=== PATIENT | female | born 1975 | race Caucasian/White ===

== ENCOUNTER 2018-02-20 21:18 | Emergency (ER) | payer MEDICARE, SELFPAY ==
[2018-02-20 21:46] VITALS: BP 105/78; PULSE 98; RESP 17; TEMP 36.2; O2SAT 98
--- NOTE | 2018-02-20 22:49 | ED.BACK ---
HPI - Back Pain/Injury General Chief Complaint: Back Pain/Injury Stated Complaint: BACK PAIN Time Seen by Provider: 02/20/18 22:06 Source: patient Mode of arrival: ambulatory Limitations: no limitations History of Present Illness HPI Narrative: 43-year-old female here for evaluation of left-sided back pain. She states that her symptoms started on Monday. No known trauma. She has seen her neurologist who she sees for Arnold-Chiari malformation who started her on a Medrol Dosepak which she finished yesterday and also scheduled her for an MRI of her lower back for Monday. Patient has never had lower back pain before. No bowel or bladder symptoms. No radiation down her legs. Has tried multiple doses of ketorolac which has not improved any of her symptoms. Related Data Home Medications Medication Instructions Recorded Confirmed duloxetine 20 mg PO QDAY #0 cap 10/19/15 Previous Rx's Medication Instructions Recorded pramipexole [Mirapex] 0.25 mg PO BID #60 tab 09/29/15 levothyroxine [Synthroid] 25 mcg PO QAM #30 tab 10/16/15 prednisone 50 mg PO DAILY #7 tab 02/21/18 Allergies Allergy/AdvReac Type Severity Reaction Status Date / Time No Known Allergies Allergy Uncoded 06/14/17 12:55 Review of Systems Constitutional Denies fever(s), Reports headache(s) and Denies weakness ENT Ears, Nose, Mouth, and Throat: Denies vertigo, Denies dizziness and Reports headache(s) Cardiovascular Denies chest pain, Reports palpitations and Denies dyspnea Respiratory Denies dyspnea Gastrointestinal Gastrointestinal: Denies abdominal pain Genitourinary Denies flank pain, Denies urinary incontinence and Denies urinary hesitancy Musculoskeletal Denies numbness Integumentary/Breasts Denies lesions and Denies rash Neurologic Denies vertigo, Denies dizziness, Reports headache(s), Denies numbness, Denies radicular pain, Denies paresthesias and Denies weakness Endocrine Reports palpitations Hematologic/Lymphatic Comments: Not on anticoagulation PFSH Medical History Arnold-Chiari malformation (Acute) Surgical History History of spinal fusion Status post delivery Status post laminectomy Family History Grandfather Cancer Grandmother Cancer Mother Age: 69 Mental health problem Grandfather Cancer Grandmother Cancer Social History Smoking Status: Unknown if ever smoked Exam Initial Vital Signs Initial Vital Signs: Vital Signs Temperature 97.1 F L 02/20/18 21:46 Pulse Rate 98 H 02/20/18 21:46 Respiratory Rate 17 02/20/18 21:46 Blood Pressure 105/78 02/20/18 21:46 Pulse Oximetry 98 12 21:46 Const General: cooperative, healthy appearing, well developed and well groomed Orientation: alert, awake and oriented x3 HENMT Head: normal to inspection and normocephalic Resp Effort & Inspection: normal respiratory effort Auscultation: clear to auscultation bilaterally Cardio Rate: regular rate Rhythm: regular rhythm Back/Spine/Pelvis Other: Tenderness to palpation left lower lumbar region paraspinal. Skin Lesions: no lesions Neuro General: alert, awake and oriented x3 Cognition: normal cognition Sensory Exam: no sensory deficits noted Extrem General: normal to inspection, capillary refill normal and No edema Psych Appearance: grossly normal and well kempt Course Orders Ordered: ED Orders 02/20/18 22:49 EKG-12 Lead Stat Discontinued Medications Diazepam (Valium) 5 mg PO NOW ONE Stop: 02/20/18 22:50 Last Admin: 02/20/18 23:00 Dose: 5 mg Hydromorphone HCl (Dilaudid) 1 mg IV NOW ONE Stop: 02/20/18 23:42 Last Admin: 02/20/18 23:51 Dose: 1 mg Prednisone (Deltasone) 40 mg PO NOW ONE Stop: 02/20/18 22:50 Last Admin: 02/20/18 22:59 Dose: 40 mg Vital Signs - 8 hr 02/20/18 21:46 02/21/18 00:50 Temperature 97.1 F L Pulse Rate 98 H 76 Respiratory Rate 17 17 Blood Pressure 105/78 109/60 Pulse Oximetry 98 99 MDM - Back Pain/Injury ECG Data Attestation: I personally reviewed and interpreted this ECG as follows: Prior ECG tracings: not available for review Interpretation: Sinus rhythm Ventricular rate 80 for Normal axis Normal QRS Normal QTC No ST T wave changes MDM Narrative Medical decision making narrative: Patient without red flag symptoms concerning for cauda equina, fracture, spinal epidural abscess or hematoma. Has paraspinal pain. Patient was also complaining of palpitations. She states that she has ?autonomic dysregulation ?from the Arnold-Chiari malformation. Patient was placed on a monitor. The palpitations that she was feeling are consistent with the PVCs that we are seeing on the monitor. Patient was given muscle relaxers and pain medication here in the ER. She stated that she did not want any pain medication to go home with. Was sent home with a longer course of steroids. She is scheduled for an MRI on Monday. I do not feel that this needs to happen emergently here in the emergency department. Patient was given return precautions. She expressed understanding and agreement. Discharge Plan Departure Patient Disposition: Home Clinical Impression: Back pain, Frequent PVCs Discharge Date/Time: 02/21/18 00:50 Interventions: ED Discharge Assessment Last Done: 02/21/18 00:50 Instructions: Back Pain (Alternative Therapy), Premature Ventricular Beats, DI for Low Back Pain, Activity May Be Better then Rest for Low Back Pain Recovery Activity Restrictions/Additional Instructions: You were given your 1st dose of steroids here in the emergency department. Fill the prescription and start taking them tomorrow. Keep your scheduled MRI. Call your neurologist and your primary doctor for a follow-up. Talk with your primary doctor about the PVCs that were seen on the monitor today. Return to the emergency department for any new symptoms. Prescriptions: New prednisone 50 mg tablet 50 mg PO DAILY Qty: 7 RF: 0 No Action pramipexole [Mirapex] 0.25 MG tablet 0.25 mg PO BID Qty: 60 RF: 3 levothyroxine [Synthroid] 25 MCG tablet 25 mcg PO QAM Qty: 30 RF: 3 duloxetine 20 MG capsule,delayed release(DR/EC) 20 mg PO QDAY Qty: 0 RF: 0
[2018-02-20] MEDS: predniSONE 20 MG TABLET 40 MG PO (22:59)
[2018-02-20] MEDS: diazePAM 5 MG TABLET PO (23:00)
[2018-02-20] MEDS: HYDROMORPHONE 0.5 MG INJ 1 MG IV (23:51)
[2018-02-21 00:50] VITALS: BP 109/60; PULSE 76; RESP 17; O2SAT 99
== END 2018-02-21 00:50 | disposition home or self-care (01) ==
PROVIDERS: Emergency Provider Emergency Medicine; PCP Family Medicine
DX: I49.3 Ventricular premature depolarization (principal); M54.9 Dorsalgia, unspecified
CPT/HCPCS: 93005; 96374; 99282; 99284; J1170

== ENCOUNTER 2018-03-05 17:42 | Emergency (ER) | payer MEDICARE, SELFPAY ==
[2018-03-05 18:47] LABS: Bacteria Urine None Seen
[2018-03-05 18:49] LABS: Bilirubin Urine UA NEGATIVE (NEGATIVE); Glucose Urine UA NEGATIVE (Negative); Ketones Urine UA NEGATIVE (NEGATIVE); Leukocyte Esterase Urine UA NEGATIVE (NEGATIVE); Nitrite Urine UA NEGATIVE (Negative); Occult Blood Urine UA 3+ (Negative); Protein Urine UA TRACE (Negative); Specific Gravity Urine UA <=1.005 (1.000-1.035); Urobilinogen Urine UA 0.2 E.U./dL (0.2); pH Urine UA 5.5 (4.5-8.0)
[2018-03-05 18:50] VITALS: BP 150/78; PULSE 65; RESP 14; TEMP 36.4; O2SAT 100
[2018-03-05 18:51] LABS: Appearance Urine UA Slightly Cloudy; Color Urine UA OTHER
[2018-03-05 18:56] LABS: Amorphous Sediment Urine 1+; Culture Indicated Urine Cult Not Indicated; RBC Urine 5-10/HPF (0-5/HPF); Squamous Epithelial Cell Urine 5-10 /HPF; WBC Urine 0-1/HPF (0-5/HPF)
[2018-03-05 20:42] VITALS: BP 120/65; PULSE 63; RESP 16; O2SAT 100
[2018-03-05 20:45] VITALS: TEMP 36.9
--- NOTE | 2018-03-05 20:59 | PC.NURSE ---
Pt reports lower chronic back pain she had a recent MRI to evaluate. Today however she started to get blood in her urine at the end of the urine stream. Pt denies fever/chills, N/V/D, SOB and chest pain. Pt is laying quietly on stretcher and answering questions very quietly. Pt appears uncomfortable. pt is very tender on right flank when percussion.
--- NOTE | 2018-03-05 21:22 | ED.FEMALEGU ---
HPI - Female Genitourinary General Chief complaint: Urogenital-Female Stated complaint: blood in urine Time Seen by Provider: 03/05/18 20:42 Source: patient and family Mode of arrival: ambulatory Limitations: no limitations History of Present Illness HPI Narrative: Patient complains of low back pain and hematuria versus vaginal bleeding. The patient states that she has been noticing bleeding at the end of her urinary stream, although she has worn a pad and has been having some bleeding onto the pad for the last few days as well. Patient states she has a Mirena IUD, and usually just does some spotting, but this is heavier than she previously blood. Patient is also concerned because she has been eating and drinking normally but has been losing weight over the last month. The patient has a history of Arnold-Chiari malformation, as well as dysautonomia. She states she has been getting waves of nausea and also has been having urinary frequency. Patient denies fevers. She states she has been having some lower abdominal discomfort, but that mostly, her pain is in the back. Patient denies shortness of breath, chest pain, or cough. She states her pain is not made better or worse by anything, and is variable between 3/10 and 8/10. She states the pain and the friend is like a cramping sensation. She states the pain in her back is just a pain. She does note that she has had an ultrasound of her pelvic organs recently to evaluate her Mirena placement, and that the IUD was found to be in good placement. She has also had an MRI of her low back in the last the couple of months, and this did demonstrate herniated disc. Patient denies any weakness or loss of sensation in her lower extremities. She has not had any urinary or bowel retention. She states occasionally, she will have a little bit of urinary leakage, but this is not a new problem. Patient does see a neurologist for her Arnold-Chiari malformation. Related Data Home Medications Medication Instructions Recorded Confirmed baclofen 10 mg tablet 10 mg PO TID 03/05/18 03/05/18 ketorolac 60 mg/2 mL intramuscular 60 mg IM Q6-8H PRN ml 03/05/18 03/05/18 cartridge Previous Rx's Medication Instructions Recorded ketorolac 10 mg PO Q6H PRN #10 tab 03/05/18 ondansetron 4 mg PO Q6-8H PRN #10 tab 03/05/18 Allergies Allergy/AdvReac Type Severity Reaction Status Date / Time No Known Allergies Allergy Uncoded 06/14/17 12:55 Review of Systems Review of Systems All systems reviewed & are unremarkable except as noted in HPI and below Constitutional Denies chills, Denies fever(s), Denies lethargy and Denies weakness Eyes Denies change in vision, Denies eye discharge, Denies irritation and Denies loss of vision ENT Ears, Nose, Mouth, and Throat: Denies change in voice, Denies neck pain and Denies sore throat Cardiovascular Denies chest pain, Denies irregular heart rhythm, Denies lightheadedness, Denies palpitations, Denies dyspnea, Denies dyspnea on exertion and Denies orthopnea Respiratory Denies cough, Denies dyspnea, Denies dyspnea on exertion and Denies wheezing Gastrointestinal Gastrointestinal: Reports abdominal pain (Low), Denies change in bowel habits, Denies diarrhea, Denies nausea and Denies vomiting Genitourinary Reports hematuria, Denies flank pain, Reports urinary incontinence (Mild), Denies urinary urgency and Reports vaginal discharge (Bleeding, possible, light) Musculoskeletal Reports back pain and Denies neck pain Integumentary/Breasts Denies pruritus, Denies erythema, Denies rash and Denies wounds Neurologic Denies confusion, Denies loss of vision and Denies weakness Psychiatric Denies anxiety, Denies confusion, Denies depression, Denies homicidal ideation and Denies suicidal ideation Endocrine Denies palpitations Hematologic/Lymphatic Denies easy bruising Allergic/Immunologic Denies wheezing [facility] Medical History Arnold-Chiari malformation (Acute) Surgical History History of spinal fusion Status post delivery Status post laminectomy Family History Grandfather Cancer Grandmother Cancer Mother Age: 69 Mental health problem Grandfather Cancer Grandmother Cancer Social History Smoking Status: Current some day smoker Exam Initial Vital Signs Initial Vital Signs: Vital Signs Temperature 97.6 F 03/05/18 18:50 Pulse Rate 65 03/05/18 18:50 Respiratory Rate 14 03/05/18 18:50 Blood Pressure 150/78 H 03/05/18 18:50 Pulse Oximetry 100 03/05/18 18:50 Const General: cooperative and well developed Nutritional Appearance: well nourished Orientation: alert, awake, oriented x3 and not confused [facility] Head: normocephalic and atraumatic Ears: external ears normal and TM's normal bilaterally Nose: external nose normal and No nasal discharge Face and sinus: sinuses nontender, face symmetric, no sinus tenderness and No dry mucous membranes Mouth: oral mucosae normal and moist mucous membranes Teeth and gingiva: dentition normal Throat: tonsils normal and uvula midline Eyes General: appearance normal, both eyes and all related structures Eyelids: eyelids normal Conjunctivae: conjunctivae normal Sclera: sclerae normal Pupils: PERRL EOM: EOM intact bilaterally Neck Neck: normal visual inspection, trachea midline, No lymphadenopathy, No midline deformity and No JVD Lymphatic: No lymphedema Chest Chest: normal inspection of the chest Resp Effort & Inspection: normal respiratory effort, able to speak in complete sentences, no respiratory distress and no use of accessory muscles Auscultation: clear to auscultation bilaterally, no rales, no rhonchi and no wheezes Cardio Rate: regular rate Rhythm: regular rhythm Heart Sounds: no click, no gallops, no murmurs and no rubs Pulses: normal peripheral pulses GI Inspection: non-distended Palpation: soft, no hepatosplenomegaly, No guarding, No pulsatile mass and tender (Bilateral lower abdomen, moderate.) Auscultation: normal bowel sounds Back/Spine/Pelvis Back: No CVA tenderness Cervical Spine: cervical ROM normal and No pain with cervical ROM Thoracic/Lumbar Spine: thoracic and lumbar spine normal to inspection Other: Diffuse tenderness over bilateral paraspinal musculature over the entire length of the back. Skin General: no rashes or lesions noted, No jaundice and No petechiae Neuro General: alert, oriented x3, gait normal and no focal motor deficits Speech: speech normal Extrem General: full ROM, no clubbing, cyanosis or edema, no pedal edema and no calf tenderness Psych Appearance: well kempt Mental Status: mental status grossly normal Attitude: cooperative Thought Content: normal and suicidality Judgment: judgment good Course Course Narrative: Patient was worked up with a urinalysis, which showed blood but was otherwise negative. She was also worked up with CBC and CMP, urine test, and ultimately, CT scan of the abdomen and pelvis. She was given IV Toradol and Zofran for symptomatic relief, and did report feeling better afterward. Patient's workup was unremarkable. The I did discuss with the patient that we have not found an emergent condition today, and that she will need to follow up with her doctor regarding her ongoing symptoms. We have discussed the usual indications for return. Patient was agreeable to this plan. Orders Ordered: Discontinued Medications Ketorolac Tromethamine (Toradol) 30 mg IV NOW ONE Stop: 03/05/18 21:21 Last Admin: 03/05/18 21:57 Dose: 30 mg Ondansetron HCl (Zofran) 4 mg IV NOW ONE Stop: 03/05/18 21:21 Last Admin: 03/05/18 21:57 Dose: 4 mg Vital Signs - 8 hr 03/05/18 18:50 03/05/18 20:42 03/05/18 20:45 Temperature 97.6 F 98.5 F Pulse Rate 65 63 Respiratory Rate 14 16 Blood Pressure 150/78 H Blood Pressure [Left Arm] 120/65 Pulse Oximetry 100 100 MDM - Female Genitourinary Medical Records Attestation: I reviewed the patient's medical records. Lab Data Attestation: I reviewed the patient's lab results. Result diagrams: 03/05/18 21:50 03/05/18 21:50 Lab Results 03/05/18 03/05/18 03/05/18 Range/Units 18:30 18:30 21:50 WBC 7.8 (4.5-11.0) X10^3/uL RBC 4.47 (4.0-5.2) X10^6/uL Hgb 14.4 (12.0-16.0) g/dL Hct 41.5 (36-46) % MCV 92.8 (80-100) fL MCH 32.3 (26-34) PG MCHC 34.8 (30-36) % RDW 12.9 (11.6-14.8) % Plt Count 214 (150-400) X10^3/uL Neut % (Auto) 68.7 (50-75) % Lymph % (Auto) 22.6 L (25-40) % [place] % (Auto) 6.2 (3-14) % Eos % (Auto) 1.7 L (2-4) % Baso % (Auto) 0.8 (0-2) % Neut # (Auto) 5300 (0636-2650) /uL Sodium (137-145) mmol/L Potassium (3.4-5.1) mmol/L Chloride (98-107) mmol/L Carbon Dioxide (22-32) mmol/L BUN (7-17) mg/dL Creatinine (0.52-1.04) mg/dL Estimated GFR (>60) mL/min BUN/Creatinine Ratio (6-22) Glucose (70-100) mg/dL Calcium (8.4-10.2) mg/dL Total Bilirubin (0.2-1.3) mg/dL AST (14-36) IU/L ALT (9-52) IU/L Alkaline Phosphatase (38-126) U/L Total Protein (6.3-8.2) g/dL Albumin (3.5-5.0) g/dL Globulin (1.7-4.1) g/dL Albumin/Globulin Ratio (1.0-2.8) Urine Color Other Urine Appearance Slightly cloudy Urine pH 5.5 (4.5-8.0) Ur Specific Graham <=1.005 (1.000-1.035) Urine Protein Trace H (Negative) Urine Glucose (UA) Negative (Negative) g/dL Urine Ketones Negative (NEGATIVE) Urine Occult Blood 3+ H (Negative) Urine Nitrate Negative (Negative) Urine Bilirubin Negative (NEGATIVE) Urine Urobilinogen 0.2 (0.2) E.U./dL Ur Leukocyte Esterase Negative (NEGATIVE) Urine RBC 5-10/hpf H (0-5/HPF) Urine WBC 0-1/hpf (0-5/HPF) Ur Squamous Epith Cells 5-10 /hpf H Amorphous Sediment 1+ Urine Bacteria None seen (None) Ur Culture Indicated? Cult not indicated Micro UA Comment Not Reportable Urine Test Negative (Negative) 03/05/18 Range/Units 21:50 WBC (4.5-11.0) X10^3/uL RBC (4.0-5.2) X10^6/uL Hgb (12.0-16.0) g/dL Hct (36-46) % MCV (80-100) fL MCH (26-34) PG MCHC (30-36) % RDW (11.6-14.8) % Plt Count (150-400) X10^3/uL Neut % (Auto) (50-75) % Lymph % (Auto) (25-40) % [place] % (Auto) (3-14) % Eos % (Auto) (2-4) % Baso % (Auto) (0-2) % Neut # (Auto) (2426-6338) /uL Sodium 141 (137-145) mmol/L Potassium 3.9 (3.4-5.1) mmol/L Chloride 102 (98-107) mmol/L Carbon Dioxide 27 (22-32) mmol/L BUN 8 (7-17) mg/dL Creatinine 0.60 (0.52-1.04) mg/dL Estimated GFR > 60.0 (>60) mL/min BUN/Creatinine Ratio 13.3 (6-22) Glucose 90 (70-100) mg/dL Calcium 9.7 (8.4-10.2) mg/dL Total Bilirubin 1.0 (0.2-1.3) mg/dL AST 22 (14-36) IU/L ALT 15 (9-52) IU/L Alkaline Phosphatase 42 (38-126) U/L Total Protein 8.0 (6.3-8.2) g/dL Albumin 4.9 (3.5-5.0) g/dL Globulin 3.1 (1.7-4.1) g/dL Albumin/Globulin Ratio 1.6 (1.0-2.8) Urine Color Urine Appearance Urine pH (4.5-8.0) Ur Specific Graham (1.000-1.035) Urine Protein (Negative) Urine Glucose (UA) (Negative) g/dL Urine Ketones (NEGATIVE) Urine Occult Blood (Negative) Urine Nitrate (Negative) Urine Bilirubin (NEGATIVE) Urine Urobilinogen (0.2) E.U./dL Ur Leukocyte Esterase (NEGATIVE) Urine RBC (0-5/HPF) Urine WBC (0-5/HPF) Ur Squamous Epith Cells Amorphous Sediment Urine Bacteria (None) Ur Culture Indicated? Micro UA Comment Urine Test (Negative) Imaging Data CT scan - pelvis: Attestation: I personally reviewed and interpreted this imaging study as follows: Radiologist's impression: PROCEDURE: CT ABDOMEN PELVIS WO CON INDICATIONS: back pain/hematuria TECHNIQUE: Noncontrast 5 mm thick sections acquired from the diaphragms to the symphysis. 5 mm thick coronal and sagittal reformats were then performed. For radiation dose reduction, the following was used: automated exposure control, adjustment of mA and/or kV according to patient size. COMPARISON: None. FINDINGS: Image quality: Excellent. Lung bases: Lung bases are clear. Heart size is normal. Urinary system: Both kidneys are normal in size. No kidney stones. No hydronephrosis or perinephric fat stranding. Both ureters appear non-dilated throughout their expected courses. Bladder wall thickness is normal; no calcified bladder stones. Other solid organs: Liver is normal in size. Nonspecific subcentimeter hyperdensity seen in the inferior tip the liver, possibly cysts although too small to characterize. Gallbladder negative. Pancreas is normal in contours. Spleen is normal in size. No adrenal nodules. Peritoneum and bowel: Unenhanced bowel loops demonstrate normal wall thickness and caliber. No free fluid or air. Nodes and vessels: No retroperitoneal or mesenteric adenopathy by size criteria. Aorta and inferior vena cava are normal in caliber. Abdominal wall: No ventral hernias. Pelvis: Mild, possibly physiologic pelvic fluid. No inguinal hernias or adenopathy. Bones: No suspicious bony lesions. No vertebral body compression fractures. IMPRESSION: No urolithiasis or evidence of urinary obstruction. Moderate stool, raising possibility of constipation. Incidentally noted IUD. Mild pelvic free fluid which could be physiologic. Dictated by: Tu Edwards M.D. on 03/06/2018 at 9:36 Approved by: Tu Edwards M.D. on 03/06/2018 at 9:39 Discharge Plan Departure Patient Disposition: Home Clinical Impression: Back pain, Vaginal bleeding Discharge Date/Time: 03/06/18 00:25 Interventions: ED Discharge Assessment Last Done: 03/06/18 00:24 Instructions: DI for Low Back Pain, DI for Vaginal Bleeding Activity Restrictions/Additional Instructions: Your labs look good. Your blood cell levels are normal. Your CT scan does not show any concerning findings. Your IUD is where it should be. There is no evidence of a kidney stone. Urinalysis shows blood, but no infection. Most likely, the blood you were seen when you urinate is the blood that is coming from your vagina. You should follow-up with your bulk system operator to discuss whether the IUD continues to be the right choice for you. No evidence of a serious or emergent condition is found at this time. Prescriptions: New ketorolac 10 mg tablet 10 mg PO Q6H PRN (Reason: pain) Qty: 10 RF: 0 ondansetron 4 mg tablet,disintegrating 4 mg PO Q6-8H PRN (Reason: nausea and vomiting) Qty: 10 RF: 0 No Action baclofen 10 mg tablet 10 mg PO TID RF: 0 ketorolac 60 mg/2 mL cartridge 60 mg IM Q6-8H PRNRF: 0
[2018-03-05 21:36] VITALS: BP 108/67; PULSE 63; RESP 15; O2SAT 100
[2018-03-05 21:42] LABS: Pregnancy Test Urine Negative (Negative)
[2018-03-05] MEDS: ONDANSETRON 4 MG/2 ML INJ IV (21:57)
[2018-03-05] MEDS: KETOROLAC 60 MG/2 ML VIAL 30 MG IV (21:57)
[2018-03-05 22:00] LABS: Add Manual Diff / Slide Review NO; Basophils Percent Auto 0.8 % (0-2); Eosinophils Percent Auto 1.7 % (2-4); Hematocrit 41.5 % (36-46); Hemoglobin 14.4 g/dL (12.0-16.0); Lymphocytes Percent Auto 22.6 % (25-40); Mean Corpuscular HGB Conc 34.8 % (30-36); Mean Corpuscular Hemoglobin 32.3 PG (26-34); Mean Corpuscular Volume 92.8 fL (80-100); Monocytes Percent Auto 6.2 % (3-14); Neutrophils Absolute Auto 5300 /uL (1500-7000); Neutrophils Percent Auto 68.7 % (50-75); Platelet Count 214 X10^3/uL (150-400); Red Blood Cell Count 4.47 X10^6/uL (4.0-5.2); Red Cell Distribution Width 12.9 % (11.6-14.8); White Blood Cell Count 7.8 X10^3/uL (4.5-11.0)
[2018-03-05 22:15] LABS: Alanine Aminotransferase 15 IU/L (9-52); Albumin 4.9 g/dL (3.5-5.0); Albumin Globulin Ratio 1.6 (1.0-2.8); Alkaline Phosphatase 42 U/L (38-126); Aspartate Aminotransferase 22 IU/L (14-36); BUN Creatinine Ratio 13.3 (6-22); Blood Urea Nitrogen 8 mg/dL (7-17); Calcium 9.7 mg/dL (8.4-10.2); Carbon Dioxide 27 mmol/L (22-32); Chloride 102 mmol/L (98-107); Estimated Glomerular Filt Rate > 60.0 mL/min (>60); Globulin 3.1 g/dL (1.7-4.1); Glucose 90 mg/dL (70-100); HEMOLYSIS < 15 (0-50); Potassium 3.9 mmol/L (3.4-5.1); Sodium 141 mmol/L (137-145)
--- NOTE | 2018-03-05 22:21 | DI.CT.S_ITS ---
PROCEDURE: CT ABDOMEN PELVIS WO CON INDICATIONS: back pain/hematuria TECHNIQUE: Noncontrast 5 mm thick sections acquired from the diaphragms to the symphysis. 5 mm thick coronal and sagittal reformats were then performed. For radiation dose reduction, the following was used: automated exposure control, adjustment of mA and/or kV according to patient size. COMPARISON: None. FINDINGS: Image quality: Excellent. Lung bases: Lung bases are clear. Heart size is normal. Urinary system: Both kidneys are normal in size. No kidney stones. No hydronephrosis or perinephric fat stranding. Both ureters appear non-dilated throughout their expected courses. Bladder wall thickness is normal; no calcified bladder stones. Other solid organs: Liver is normal in size. Nonspecific subcentimeter hyperdensity seen in the inferior tip the liver, possibly cysts although too small to characterize. Gallbladder negative. Pancreas is normal in contours. Spleen is normal in size. No adrenal nodules. Peritoneum and bowel: Unenhanced bowel loops demonstrate normal wall thickness and caliber. No free fluid or air. Nodes and vessels: No retroperitoneal or mesenteric adenopathy by size criteria. Aorta and inferior vena cava are normal in caliber. Abdominal wall: No ventral hernias. Pelvis: Mild, possibly physiologic pelvic fluid. No inguinal hernias or adenopathy. Bones: No suspicious bony lesions. No vertebral body compression fractures. IMPRESSION: No urolithiasis or evidence of urinary obstruction. Moderate stool, raising possibility of constipation. Incidentally noted IUD. Mild pelvic free fluid which could be physiologic. Dictated by: Tu Edwards M.D. on 03/06/2018 at 9:36 Approved by: Tu Edwards M.D. on 03/06/2018 at 9:39
[2018-03-05 23:00] VITALS: BP 106/48; PULSE 60; RESP 16; O2SAT 100
[2018-03-05 23:09] VITALS: BP 117/72; PULSE 57; RESP 16; TEMP 36.8; O2SAT 100
[2018-03-06 00:24] VITALS: BP 114/77; PULSE 69; RESP 14; O2SAT 100
== END 2018-03-06 00:25 | disposition home or self-care (01) ==
PROVIDERS: Emergency Provider Emergency Medicine; PCP Family Medicine
DX: M54.9 Dorsalgia, unspecified (principal); N93.9 Abnormal uterine and vaginal bleeding, unspecified
CPT/HCPCS: 36415; 36591; 74176; 80053; 81001; 81025; 85025; 96374; 96375; 99283; 99284; J1885; J2405

== ENCOUNTER 2018-11-16 11:54 | Emergency (ER) | payer MEDICARE, SELFPAY ==
[2018-11-16 12:10] VITALS: BP 144/81; PULSE 99; RESP 18; TEMP 37.1; O2SAT 97; BMI 24.7
[2018-11-16 12:51] LABS: Add Manual Diff / Slide Review NO; Basophils Absolute Auto 100 /uL (0-100); Basophils Percent Auto 0.8 % (0-2); Eosinophils Absolute Auto 0 /uL (0-450); Eosinophils Percent Auto 0.3 % (2-4); Hematocrit 38.4 % (36-46); Hemoglobin 13.6 g/dL (12.0-16.0); Lymphocytes Absolute Auto 1000 /uL (1100-4500); Lymphocytes Percent Auto 11.5 % (25-40); Mean Corpuscular HGB Conc 35.4 % (30-36); Mean Corpuscular Hemoglobin 32.6 PG (26-34); Mean Corpuscular Volume 92.2 fL (80-100); Monocytes Absolute Auto 400 /uL (0-900); Monocytes Percent Auto 4.7 % (3-14); Neutrophils Absolute Auto 7000 /uL (1500-7000); Neutrophils Percent Auto 82.7 % (50-75); Platelet Count 242 X10^3/uL (150-400); Red Blood Cell Count 4.17 X10^6/uL (4.0-5.2); White Blood Cell Count 8.5 X10^3/uL (4.5-11.0)
[2018-11-16 12:59] LABS: Acetaminophen < 10 ug/mL (10-30); Alanine Aminotransferase 10 IU/L (9-52); Albumin 4.7 g/dL (3.5-5.0); Albumin Globulin Ratio 1.6 (1.0-2.8); Alkaline Phosphatase 62 U/L (38-126); Aspartate Aminotransferase 21 IU/L (14-36); Bilirubin Total 0.7 mg/dL (0.2-1.3); Blood Urea Nitrogen 9 mg/dL (7-17); Calcium 9.6 mg/dL (8.4-10.2); Carbon Dioxide 25 mmol/L (22-32); Chloride 102 mmol/L (98-107); Estimated Glomerular Filt Rate > 60.0 mL/min (>60); Ethanol (ETOH) < 10 mg/dL; Glucose 104 mg/dL (70-100); HEMOLYSIS < 15 (0-50); Potassium 4.1 mmol/L (3.4-5.1); Salicylate < 1.0 mg/dL (<20); Sodium 138 mmol/L (137-145); Total Protein 7.7 g/dL (6.3-8.2)
--- NOTE | 2018-11-16 13:02 | ED.PSYCH ---
HPI - Psych <Vanesa Campoverde DO - Last Filed: 11/16/18 19:36> General Chief Complaint: Psychiatric Symptoms Stated Complaint: states not well in head, depression and anxiety Time Seen by Provider: 11/16/18 13:02 Source: patient and family (Mother) Mode of arrival: ambulatory Limitations: no limitations History of Present Illness HPI Narrative: This is a 43-year-old female comes to the emergency department stating she is not well in her head. She states that she feels depressed and suicidal. She states it feels like there is 2 factions warring in her head. She states that she is not sure if she having hallucinations. Patient states she is not sure what to believe is reality and what is not reality she states that have a very good relationship. She states initially that she thinks that if she wanted to kill herself her would assist her, and she states that she would do the same for patient has had suicide attempts in the past. She has a plan to take pills to overdose. She is seeking assistance at this time as she doesn't trust herself not to harm herself. H states that she does not have a counselor currently because they typically switched jobs and then she has to find a new one. She has been taking Prozac and pramipexole daily. Patient is accompanied by her mother who states that she does seem worse than she typically does. Both patient and her mother state that they do not feel that she is safe at home at this time patient is willing and seeking for possible hospitalization at this time. Mother states she has had long standing issues from childhood and recently paranoia and delusions seem worse although she expressed patient seemed to have more insight than normal. complaint: suicidal ideation and feels depressed Related Data Home Medications Medication Instructions Recorded Confirmed baclofen 10 mg tablet 10 mg PO TID 03/05/18 03/05/18 fluoxetine 60 mg PO DAILY 11/16/18 11/16/18 gabapentin 300 mg PO TID 11/16/18 11/16/18 pramipexole 0.25 mg PO BID 11/16/18 11/16/18 propranolol 10 mg PO TID 11/16/18 Allergies Allergy/AdvReac Type Severity Reaction Status Date / Time No Known Drug Allergies Allergy Verified 11/16/18 17:19 Review of Systems <DO Ry Palomino Last Filed: 11/16/18 19:36> Review of Systems ROS Unobtainable: All systems reviewed & are unremarkable except as noted in HPI and below Constitutional Constitutional: Denies chills, Denies fever(s), Denies headache(s), Denies lethargy and Denies weakness Eyes Eyes: Denies change in vision ENT Ears, Nose, Mouth, and Throat: Denies headache(s) Cardiovascular Cardiovascular: Denies syncope, Denies dyspnea and Denies dyspnea on exertion Respiratory Respiratory: Denies cough, Denies dyspnea, Denies dyspnea on exertion and Denies wheezing Gastrointestinal Gastrointestinal: Denies abdominal pain, Denies constipation, Denies diarrhea, Reports nausea and Denies vomiting Genitourinary Genitourinary: Denies hematuria, Denies nocturia, Denies dysuria, Denies flank pain, Denies urinary incontinence, Denies urinary hesitancy and Denies urinary urgency Musculoskeletal Musculoskeletal: Denies limited range of motion, Denies numbness and Denies tingling Neurologic Neurologic: Reports behavioral changes, Denies syncope, Denies headache(s), Denies memory loss, Denies numbness, Denies tingling and Denies weakness Psychiatric Psychiatric: Reports as per HPI, Reports abnormal sleep pattern, Reports behavioral changes, Reports depression, Denies auditory hallucinations, Denies memory loss, Reports panic attacks, Reports paranoia, Denies visual hallucinations, Reports hallucinations and Denies tactile hallucinations Allergic/Immunologic Allergic/Immunologic: Denies wheezing PFSH <Vanesa Campoverde, DO - Last Filed: 11/16/18 19:36> Social History Smoking Status: Current some day smoker Exam <Vanesa Campoverde, DO - Last Filed: 11/16/18 19:36> Narrative Exam Narrative: GENERAL: Alert and oriented x three, well-nourished, well-appearing female in mild distress. HEENT: Head normocephalic, atraumatic, EOMI, pupils reactive, face symmetric, moist mucous membranes NECK: Supple, full range of motion CARDIOVASCULAR: Regular rate and rhythm without murmurs, rubs or gallops. RESPIRATORY: Breath sounds equal bilaterally, no wheezes rales or rhonchi. ABDOMEN: Soft, nontender. Normoactive bowel sounds all 4 quadrants. No guarding or rebound, rigidity, no mass : No CVA tenderness EXTREMITIES: Normal range of motion, no clubbing or edema. Neurovascularly intact NEUROLOGICAL: Cranial nerves II through XII grossly intact. Moving all extremities SKIN: Warm, dry, no petechiae, no rashes or lesions. PSYCH: suicidal ideation, no homicidal ideation, + depression, hallucinations but denies tactile or visual hallucinations, describes as paranoia and delusions Initial Vital Signs Initial Vital Signs: Vital Signs Temperature 98.7 F 11/16/18 12:10 Pulse Rate 99 H 11/16/18 12:10 Respiratory Rate 18 11/16/18 12:10 Blood Pressure 144/81 H 11/16/18 12:10 Pulse Oximetry 97 11/16/18 12:10 <Khurram Dietrich DO - Last Filed: 11/17/18 04:46> Initial Vital Signs Initial Vital Signs: Vital Signs Temperature 98.7 F 11/16/18 12:10 Pulse Rate 99 H 11/16/18 12:10 Respiratory Rate 18 11/16/18 12:10 Blood Pressure 144/81 H 11/16/18 12:10 Pulse Oximetry 97 11/16/18 12:10 Course <Vanesa Campoverde, DO - Last Filed: 11/16/18 19:36> Orders Ordered: Zolpidem Tartrate (Ambien) 5 mg PO BEDTIME PRN PRN Reason: Sleep Last Admin: 11/16/18 20:09 Dose: 5 mg Documented by: SHAN Discontinued Medications Lorazepam (Ativan) 1 mg PO NOW ONE Stop: 11/16/18 13:25 Last Admin: 11/16/18 13:55 Dose: 1 mg Documented by: SHAN Lorazepam (Ativan) 0.5 mg PO NOW ONE Stop: 11/17/18 04:01 Last Admin: 11/17/18 04:08 Dose: 0.5 mg Documented by: [email or web address] Pramipexole Dihydrochloride (Mirapex) 0.25 mg PO NOW ONE Stop: 11/16/18 17:19 Last Admin: 11/16/18 17:32 Dose: 0.25 mg Documented by: SHAN Vital Signs Vital signs: Vital Signs - 8 hr 11/17/18 01:53 Pulse Rate 94 H Respiratory Rate 17 Blood Pressure [Left Arm] 111/70 Pulse Oximetry 100 <Khurram Dietrich DO - Last Filed: 11/17/18 04:46> Orders Ordered: Zolpidem Tartrate (Ambien) 5 mg PO BEDTIME PRN PRN Reason: Sleep Last Admin: 11/16/18 20:09 Dose: 5 mg Documented by: SHAN Discontinued Medications Lorazepam (Ativan) 1 mg PO NOW ONE Stop: 11/16/18 13:25 Last Admin: 11/16/18 13:55 Dose: 1 mg Documented by: SHAN Lorazepam (Ativan) 0.5 mg PO NOW ONE Stop: 11/17/18 04:01 Last Admin: 11/17/18 04:08 Dose: 0.5 mg Documented by: BETSEY Pramipexole Dihydrochloride (Mirapex) 0.25 mg PO NOW ONE Stop: 11/16/18 17:19 Last Admin: 11/16/18 17:32 Dose: 0.25 mg Documented by: SHAN Vital Signs Vital signs: Vital Signs - 8 hr 11/17/18 01:53 Pulse Rate 94 H Respiratory Rate 17 Blood Pressure [Left Arm] 111/70 Pulse Oximetry 100 [facility] - Psych <Vanesa Campoverde DO - Last Filed: 11/16/18 19:36> Lab Data Attestation: I reviewed the patient's lab results. Result diagrams: 11/16/18 12:37 11/16/18 12:37 Labs: Lab Results 11/16/18 11/16/18 11/16/18 Range/Units 12:37 12:37 12:37 WBC 8.5 (4.5-11.0) X10^3/uL RBC 4.17 (4.0-5.2) X10^6/uL Hgb 13.6 (12.0-16.0) g/dL Hct 38.4 (36-46) % MCV 92.2 (80-100) fL MCH 32.6 (26-34) PG MCHC 35.4 (30-36) % RDW 13.0 (11.6-14.8) % Plt Count 242 (150-400) X10^3/uL Neut % (Auto) 82.7 H (50-75) % Lymph % (Auto) 11.5 L (25-40) % Bent % (Auto) 4.7 (3-14) % Eos % (Auto) 0.3 L (2-4) % Baso % (Auto) 0.8 (0-2) % Neut # (Auto) 7000 (9696-1352) /uL Lymph # (Auto) 1000 L (7519-1542) /uL Bent # (Auto) 400 (0-900) /uL Eos # (Auto) 0 (0-450) /uL Baso # (Auto) 100 (0-100) /uL Sodium 138 (137-145) mmol/L Potassium 4.1 (3.4-5.1) mmol/L Chloride 102 (98-107) mmol/L Carbon Dioxide 25 (22-32) mmol/L BUN 9 (7-17) mg/dL Creatinine 0.50 L (0.52-1.04) mg/dL Estimated GFR > 60.0 (>60) mL/min BUN/Creatinine Ratio 18.0 (6-22) Glucose 104 H (70-100) mg/dL Calcium 9.6 (8.4-10.2) mg/dL Total Bilirubin 0.7 (0.2-1.3) mg/dL AST 21 (14-36) IU/L ALT 10 (9-52) IU/L Alkaline Phosphatase 62 (38-126) U/L Total Protein 7.7 (6.3-8.2) g/dL Albumin 4.7 (3.5-5.0) g/dL Globulin 3.0 (1.7-4.1) g/dL Albumin/Globulin Ratio 1.6 (1.0-2.8) TSH 1.82 (0.47-4.68) uIU/mL Free T4 1.07 (0.78-2.19) ng/dL Salicylates < 1.0 (<20) mg/dL Urine Opiates Screen (Negative) Ur Oxycodone Screen (Negative) Urine Methadone Screen (Negative) Acetaminophen < 10 L (10-30) ug/mL Ur Barbiturates Screen (Negative) U Tricyclic Antidepress (Negative) Ur Phencyclidine Scrn (Negative) Ur Amphetamines Screen (Negative) U Methamphetamines Scrn (Negative) Ur MDMA Scrn (Ecstasy) (Negative) U Benzodiazepines Scrn (Negative) Urine Cocaine Screen (Negative) U Marijuana (THC) Screen (Negative) Ethyl Alcohol < 10 ( - 10) mg/dL 11/16/18 Range/Units 13:40 WBC (4.5-11.0) X10^3/uL RBC (4.0-5.2) X10^6/uL Hgb (12.0-16.0) g/dL Hct (36-46) % MCV (80-100) fL MCH (26-34) PG MCHC (30-36) % RDW (11.6-14.8) % Plt Count (150-400) X10^3/uL Neut % (Auto) (50-75) % Lymph % (Auto) (25-40) % Bent % (Auto) (3-14) % Eos % (Auto) (2-4) % Baso % (Auto) (0-2) % Neut # (Auto) (2597-0306) /uL Lymph # (Auto) (1531-2087) /uL Bent # (Auto) (0-900) /uL Eos # (Auto) (0-450) /uL Baso # (Auto) (0-100) /uL Sodium (137-145) mmol/L Potassium (3.4-5.1) mmol/L Chloride (98-107) mmol/L Carbon Dioxide (22-32) mmol/L BUN (7-17) mg/dL Creatinine (0.52-1.04) mg/dL Estimated GFR (>60) mL/min BUN/Creatinine Ratio (6-22) Glucose (70-100) mg/dL Calcium (8.4-10.2) mg/dL Total Bilirubin (0.2-1.3) mg/dL AST (14-36) IU/L ALT (9-52) IU/L Alkaline Phosphatase (38-126) U/L Total Protein (6.3-8.2) g/dL Albumin (3.5-5.0) g/dL Globulin (1.7-4.1) g/dL Albumin/Globulin Ratio (1.0-2.8) TSH (0.47-4.68) uIU/mL Free T4 (0.78-2.19) ng/dL Salicylates (<20) mg/dL Urine Opiates Screen Negative (Negative) Ur Oxycodone Screen Negative (Negative) Urine Methadone Screen Negative (Negative) Acetaminophen (10-30) ug/mL Ur Barbiturates Screen Negative (Negative) U Tricyclic Antidepress Negative (Negative) Ur Phencyclidine Scrn Negative (Negative) Ur Amphetamines Screen Negative (Negative) U Methamphetamines Scrn Negative (Negative) Ur MDMA Scrn (Ecstasy) Negative (Negative) U Benzodiazepines Scrn Negative (Negative) Urine Cocaine Screen Negative (Negative) U Marijuana (THC) Screen Positive H (Negative) Ethyl Alcohol ( - 10) mg/dL Point of Care Testing Test Results Negative Urine Dip Bedside Urine Glucose Negative Bedside Urine Bilirubin - Negative Bedside Urine Ketone +/- 5 Urine Specific Pilgrim 1.010 Bedside Urine Occult Blood - Negative Bedside Urine pH 6.0 Bedside Urine Protein - Negative Bedside Urine Urobilinogen - Negative Bedside Urine Nitrite - Negative Bedside Urine Leukocytes - Negative Esterase Imaging Data CT scan - head: Radiologist's impression: [address] [address] [address] Scan Report Signed Patient: Radhika Blackwell [facility]#: [id number] : 1975Acct:[id number] Age/Sex: 43 / FDate of Service: 11/16/18 Loc: ED Accession Number: [id number] Procedure: CT head/brain wo con Ordering Provider: Vanesa Campoverde D.O. PROCEDURE: CT HEAD/BRAIN WO CON INDICATIONS: hx chiari with decompression, psych issues TECHNIQUE: Noncontrast 4.5 mm thick angled axial sections acquired from the foramen magnum to the vertex, with coronal and sagittal reformats. For radiation dose reduction, the following was used: automated exposure control, adjustment of mA and/or kV according to patient size. COMPARISON: [facility], CT, HEAD WITHOUT CONTRAST, 06/10/2014, 14:44. FINDINGS: Image quality: Excellent. CSF spaces: Basal cisterns are patent. No extra-axial fluid collections. Ventricles are normal in size and shape. Brain: No midline shift. No intracranial masses or hemorrhage. Kwon-white matter interface is normal. Minimal Arnold-Chiari malformation is seen unchanged from prior study. Skull and face: Calvarium and visualized facial bones are intact, without suspicious lesions. Sinuses: Visualized sinuses and mastoids are clear. IMPRESSION: No CT evidence of acute intracranial pathology. Minimal Arnold-Chiari malformation unchanged from prior study. Dictated by: Ifeanyi Cruz M.D. on 11/16/2018 at 13:36 Approved by: Ifeanyi Cruz M.D. on 11/16/2018 at 13:39 MDM Narrative Medical decision making narrative: Patient medically cleared him in the department. She was given 1 dose of Ativan p.o. seem to be a little bit helpful. Patient also has some restless leg and was given her normal home medication dose couple hours early. She is interested in voluntary placement and I think that she is very appropriately for voluntary placement. Patient received ativan po and found somewhat helpful for symptoms. She still feels unsafe and is expressing interest in hospitalization. Her and sister who is DPOA are at bedside. They seem to be a strong social support for her. Signed out to Dr. Dietrich while seeking final placement/disposition. <Khurram Dietrich, - Last Filed: 11/17/18 04:46> Lab Data Labs: Lab Results 11/16/18 11/16/18 11/16/18 Range/Units 12:37 12:37 12:37 WBC 8.5 (4.5-11.0) X10^3/uL RBC 4.17 (4.0-5.2) X10^6/uL Hgb 13.6 (12.0-16.0) g/dL Hct 38.4 (36-46) % MCV 92.2 (80-100) fL MCH 32.6 (26-34) PG MCHC 35.4 (30-36) % RDW 13.0 (11.6-14.8) % Plt Count 242 (150-400) X10^3/uL Neut % (Auto) 82.7 H (50-75) % Lymph % (Auto) 11.5 L (25-40) % Bent % (Auto) 4.7 (3-14) % Eos % (Auto) 0.3 L (2-4) % Baso % (Auto) 0.8 (0-2) % Neut # (Auto) 7000 (3716-6267) /uL Lymph # (Auto) 1000 L (1491-5401) /uL Bent # (Auto) 400 (0-900) /uL Eos # (Auto) 0 (0-450) /uL Baso # (Auto) 100 (0-100) /uL Sodium 138 (137-145) mmol/L Potassium 4.1 (3.4-5.1) mmol/L Chloride 102 (98-107) mmol/L Carbon Dioxide 25 (22-32) mmol/L BUN 9 (7-17) mg/dL Creatinine 0.50 L (0.52-1.04) mg/dL Estimated GFR > 60.0 (>60) mL/min BUN/Creatinine Ratio 18.0 (6-22) Glucose 104 H (70-100) mg/dL Calcium 9.6 (8.4-10.2) mg/dL Total Bilirubin 0.7 (0.2-1.3) mg/dL AST 21 (14-36) IU/L ALT 10 (9-52) IU/L Alkaline Phosphatase 62 (38-126) U/L Total Protein 7.7 (6.3-8.2) g/dL Albumin 4.7 (3.5-5.0) g/dL Globulin 3.0 (1.7-4.1) g/dL Albumin/Globulin Ratio 1.6 (1.0-2.8) TSH 1.82 (0.47-4.68) uIU/mL Free T4 1.07 (0.78-2.19) ng/dL Salicylates < 1.0 (<20) mg/dL Urine Opiates Screen (Negative) Ur Oxycodone Screen (Negative) Urine Methadone Screen (Negative) Acetaminophen < 10 L (10-30) ug/mL Ur Barbiturates Screen (Negative) U Tricyclic Antidepress (Negative) Ur Phencyclidine Scrn (Negative) Ur Amphetamines Screen (Negative) U Methamphetamines Scrn (Negative) Ur MDMA Scrn (Ecstasy) (Negative) U Benzodiazepines Scrn (Negative) Urine Cocaine Screen (Negative) U Marijuana (THC) Screen (Negative) Ethyl Alcohol < 10 ( - 10) mg/dL 11/16/18 Range/Units 13:40 WBC (4.5-11.0) X10^3/uL RBC (4.0-5.2) X10^6/uL Hgb (12.0-16.0) g/dL Hct (36-46) % MCV (80-100) fL MCH (26-34) PG MCHC (30-36) % RDW (11.6-14.8) % Plt Count (150-400) X10^3/uL Neut % (Auto) (50-75) % Lymph % (Auto) (25-40) % Bent % (Auto) (3-14) % Eos % (Auto) (2-4) % Baso % (Auto) (0-2) % Neut # (Auto) (2671-6422) /uL Lymph # (Auto) (0210-4684) /uL Bent # (Auto) (0-900) /uL Eos # (Auto) (0-450) /uL Baso # (Auto) (0-100) /uL Sodium (137-145) mmol/L Potassium (3.4-5.1) mmol/L Chloride (98-107) mmol/L Carbon Dioxide (22-32) mmol/L BUN (7-17) mg/dL Creatinine (0.52-1.04) mg/dL Estimated GFR (>60) mL/min BUN/Creatinine Ratio (6-22) Glucose (70-100) mg/dL Calcium (8.4-10.2) mg/dL Total Bilirubin (0.2-1.3) mg/dL AST (14-36) IU/L ALT (9-52) IU/L Alkaline Phosphatase (38-126) U/L Total Protein (6.3-8.2) g/dL Albumin (3.5-5.0) g/dL Globulin (1.7-4.1) g/dL Albumin/Globulin Ratio (1.0-2.8) TSH (0.47-4.68) uIU/mL Free T4 (0.78-2.19) ng/dL Salicylates (<20) mg/dL Urine Opiates Screen Negative (Negative) Ur Oxycodone Screen Negative (Negative) Urine Methadone Screen Negative (Negative) Acetaminophen (10-30) ug/mL Ur Barbiturates Screen Negative (Negative) U Tricyclic Antidepress Negative (Negative) Ur Phencyclidine Scrn Negative (Negative) Ur Amphetamines Screen Negative (Negative) U Methamphetamines Scrn Negative (Negative) Ur MDMA Scrn (Ecstasy) Negative (Negative) U Benzodiazepines Scrn Negative (Negative) Urine Cocaine Screen Negative (Negative) U Marijuana (THC) Screen Positive H (Negative) Ethyl Alcohol ( - 10) mg/dL Point of Care Testing Test Results Negative Urine Dip Bedside Urine Glucose Negative Bedside Urine Bilirubin - Negative Bedside Urine Ketone +/- 5 Urine Specific Pilgrim 1.010 Bedside Urine Occult Blood - Negative Bedside Urine pH 6.0 Bedside Urine Protein - Negative Bedside Urine Urobilinogen - Negative Bedside Urine Nitrite - Negative Bedside Urine Leukocytes - Negative Esterase MDM Narrative Medical decision making narrative: Dr dietrich : Received turned over from day provider. Reviewed patient's history and physical and labs. Patient has remained voluntary and calm since being here in the emergency department. Patient does have placement however transport will not be here until mid afternoon on Monday. Will continue to monitor until then. Patient is stable for transfer. She was turned over to day provider change of shift to monitor until transport. Discharge Plan Departure Patient Disposition: Xfer Psychiatric Hosp Clinical Impression: Depression with suicidal ideation
--- NOTE | 2018-11-16 13:18 | PC.NURSE ---
Pt states having started taking more medications to help her sleep States taking reglan and compazine.
[2018-11-16 13:30] LABS: Free T4, Direct Thyroxine 1.07 ng/dL (0.78-2.19)
--- NOTE | 2018-11-16 13:32 | DI.CT.S_ITS ---
PROCEDURE: CT HEAD/BRAIN WO CON INDICATIONS: hx chiari with decompression, psych issues TECHNIQUE: Noncontrast 4.5 mm thick angled axial sections acquired from the foramen magnum to the vertex, with coronal and sagittal reformats. For radiation dose reduction, the following was used: automated exposure control, adjustment of mA and/or kV according to patient size. COMPARISON: [facility], CT, HEAD WITHOUT CONTRAST, 06/10/2014, 14:44. FINDINGS: Image quality: Excellent. CSF spaces: Basal cisterns are patent. No extra-axial fluid collections. Ventricles are normal in size and shape. Brain: No midline shift. No intracranial masses or hemorrhage. Kwon-white matter interface is normal. Minimal Arnold-Chiari malformation is seen unchanged from prior study. Skull and face: Calvarium and visualized facial bones are intact, without suspicious lesions. Sinuses: Visualized sinuses and mastoids are clear. IMPRESSION: No CT evidence of acute intracranial pathology. Minimal Arnold-Chiari malformation unchanged from prior study. Dictated by: Ifeanyi Cruz M.D. on 11/16/2018 at 13:36 Approved by: Ifeanyi Cruz M.D. on 11/16/2018 at 13:39
[2018-11-16 13:44] LABS: Thyroid Stimulating Hormone 1.82 uIU/mL (0.47-4.68)
--- NOTE | 2018-11-16 13:44 | PC.NURSE ---
Pt asking if visit will take a long time. I told her that we are waiting for a renal social worker to come down and talk to her. Pt is agreeable and states she doesn't want any of the offered snacks or fluids.
--- NOTE | 2018-11-16 13:47 | PC.NURSE ---
pts mom is at bedside
[2018-11-16] MEDS: LORazepam 0.5 MG TABLET 1 MG PO (13:55)
--- NOTE | 2018-11-16 13:59 | PC.NURSE ---
pts mom at bedside
[2018-11-16 14:08] LABS: Urine Amphetamines Negative (Negative); Urine Barbiturates Negative (Negative); Urine Benzodiazepines Negative (Negative); Urine Cocaine Negative (Negative); Urine MDMA Negative (Negative); Urine Methadone Negative (Negative); Urine Methamphetamines Negative (Negative); Urine Morphine/Opi cutoff 2000 Negative (Negative); Urine Oxycodone Negative (Negative); Urine Phencyclidine Negative (Negative); Urine Tetrahydrocannabinol Positive (Negative); Urine Tricyclic Antidepressant Negative (Negative)
--- NOTE | 2018-11-16 14:16 | PC.NURSE ---
CHIQUITA Avendano at bedside talking with pt and her mother
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
--- NOTE | 2018-11-16 15:14 | PC.NURSE ---
STAINED GLASS INSTALLER/ISADORA: I introduced self to patient and family member. Patient is calm, soft spoken, and laying down in bed. Patient refused snacks or fluids. RN Notified.
[2018-11-16 16:30] VITALS: BP 111/72; PULSE 97; RESP 17; O2SAT 98
[2018-11-16] MEDS: PRAMIPEXOLE 0.25 MG TABLET PO (17:32)
[2018-11-16 19:45] VITALS: BP 108/67; PULSE 79; RESP 16; O2SAT 99
[2018-11-16] MEDS: ZOLPIDEM 5 MG TABLET PO (20:09)
--- NOTE | 2018-11-16 21:41 | PC.NURSE ---
spouse at bedside
--- NOTE | 2018-11-16 23:29 | PC.NURSE ---
Pt has family at bedside
--- NOTE | 2018-11-16 23:44 | PC.NURSE ---
PT is sleeping.
--- NOTE | 2018-11-17 00:08 | PC.NURSE ---
Pt appears to be sleeping at this time.
--- NOTE | 2018-11-17 00:10 | PC.NURSE ---
PT is still sleeping.
--- NOTE | 2018-11-17 01:38 | PC.NURSE ---
PT is still laying down in bed.
[2018-11-17 01:53] VITALS: BP 111/70; PULSE 94; RESP 17; O2SAT 100
--- NOTE | 2018-11-17 02:32 | PC.NURSE ---
PT is still sleeping.
--- NOTE | 2018-11-17 03:45 | PC.NURSE ---
PT still sound asleep.
--- NOTE | 2018-11-17 03:57 | PC.NURSE ---
Pt restless in room requesting medication to help rest and sleep. Dr Dietrich aware and pt received 0.5mg PO ativan. at bedside.
--- NOTE | 2018-11-17 03:57 | PC.NURSE ---
Pt restless in room requesting medication to help rest and sleep. Dr. Dietrich aware and pt given 0.5mg PO ativan. Pt calm and cooperative in room with at bedside.
--- NOTE | 2018-11-17 03:57 | PC.NURSE ---
PT is awake and asked for something to help her sleep.
[2018-11-17] MEDS: LORazepam 0.5 MG TABLET PO (04:08)
--- NOTE | 2018-11-17 04:16 | PC.NURSE ---
PT sister is in room now with her. Her significant other left to go to work and will be back around breakfast time. PT is just laying in bed talking to her sister.
--- NOTE | 2018-11-17 04:31 | PC.NURSE ---
Pt asleep. Sister in room, lights off.
--- NOTE | 2018-11-17 05:31 | PC.NURSE ---
PT laying on her right side asleep.
--- NOTE | 2018-11-17 06:27 | PC.NURSE ---
PT still laying on her right side sleeping.
--- NOTE | 2018-11-17 06:57 | PC.NURSE ---
PT still sound asleep.
[2018-11-17 08:02] VITALS: BP 125/76; PULSE 101; RESP 16; TEMP 36.8; O2SAT 98
--- NOTE | 2018-11-17 08:55 | PC.NURSE ---
PT sitting in bed talking to her sister in the room.
--- NOTE | 2018-11-17 09:24 | PC.NURSE ---
PT wanted something to help calm her down. She is sitting on her bed chatting with her sister who is sitting in the chair right next to her.
[2018-11-17] MEDS: LORazepam 0.5 MG TABLET 1 MG PO (09:29)
[2018-11-17] MEDS: FLUoxetine 20 MG CAPSULE 60 MG PO (09:29)
--- NOTE | 2018-11-17 09:45 | PC.NURSE ---
PT is sitting eating her breakfast.
--- NOTE | 2018-11-17 09:58 | PC.NURSE ---
PT is sleeping on her left side.
[2018-11-17 11:51] VITALS: BP 113/78; PULSE 90; RESP 16; TEMP 37.8; O2SAT 98
[2018-11-17 13:00] VITALS: BP 99/67; PULSE 77; RESP 16; TEMP 37.3; O2SAT 99
== END 2018-11-17 13:35 ==
PROVIDERS: Emergency Provider Emergency Medicine
DX: F32.9 Major depressive disorder, single episode, unspecified (principal); R45.851 Suicidal ideations; G93.5 Compression of brain
CPT/HCPCS: 36415; 70450; 80053; 80305; 80320; 80329; 81003; 81025; 84439; 84443; 85025; 99285; G0480

== ENCOUNTER → 2019-03-04 06:05 | Outpatient (CLI) | payer MEDICARE, SELFPAY ==
--- NOTE | 2019-03-04 | DI.ECHO.S_ITS ---
[place] +---------+ Hospital +---------+ : : [address] : : : : [id number] : : : : Phone: [phone]+ Echocardiogram Report + + :Name: MICHAEL SWANN Study Date: 03/04/2019 Height: 60 in : :[facility] Weight: 150 lb : : Gender: Female BSA: 1.7 m2 : :: 1975 Age: 44 yrs BP: 132/84 mmHg: :Reason For Study: PVC : :Ordering Physician: Matthew Estrada : :Sadaf Performed By: Rishi Mcpherson : :Referring: MATTHEW TALAVERA : + + Interpretation Summary 1) Normal left ventricular thickness, size, wall motion, and systolic function (EF 55-60%). 2) Normal right ventricular size and function. 3) No significant valvular abnormalities. 4) No prior Echo available for comparison. Procedure: A two-dimensional transthoracic echocardiogram with color flow and Doppler was performed. The study quality was technically adequate. There is no prior echocardiogram noted for this patient. The patient was in normal sinus rhythm during the exam. Left Ventricle: The left ventricle is normal in size. There is normal left ventricular wall thickness. Left ventricular systolic function is normal. The ejection fraction is estimated to be 55-60%. Left ventricular wall motion is normal. Right Ventricle: The right ventricle is borderline dilated. The right ventricular systolic function is normal. Atria: The left atrial size is normal. Right atrial size is normal. The interatrial septum is intact with no evidence for an atrial septal defect. Mitral Valve: The mitral valve is normal in structure and function. There is trace mitral regurgitation. Aortic Valve: The aortic valve is trileaflet. The aortic valve opens well. There is no aortic valve stenosis. No aortic regurgitation is present. Tricuspid Valve: The tricuspid valve is normal in structure and function. There is trace tricuspid regurgitation. The right ventricular systolic pressure is estimated to be at least 22 mmHg based on an estimated right atrial pressure of 3 mm Hg. Pulmonic Valve: The pulmonic valve is normal in structure and function. There is mild pulmonic regurgitation. Great Vessels: The aortic root is normal size. The dimensions of the ascending aorta are normal. The pulmonary artery is normal size. The IVC is of normal diameter and collapses greater than 50% with a sniff. This suggests a low right atrial pressure of 3 mm Hg. Pericardium/ Pleura There is no pericardial effusion. There is no pleural effusion. MMode/2D Measurements & Calculations LVIDd: 4.4 cm LVOT diam: 2.0 cm LVIDs: 3.0 cm Ao root diam: 2.4 cm FS: 31.3 % Aortic Jxn: 2.3 cm EPSS: 0.78 cm IVSd: 0.85 cm LVPWd: 0.95 cm LV jewell. diameter/BSA (cm/m^2): 2.7 LV sys. diameter/BSA (cm/m^2): 1.8 LA A2 area: 16.8 cm2 RA long axis: 4.4 cm LA A4 area: 17.6 cm2 RA area: 12.1 cm2 LA length (vol): 4.7 cm RA vol: 28.4 ml LA vol: 52.9 ml RA : 17.2 ml/m2 LA vol index: 32.0 ml/m2 TAPSE: 2.3 cm Doppler Measurements & Calculations Ao V2 max: 125.6 cm/sec LVOT Max Amanuel: 99.7 cm/sec Ao V2 mean: 91.1 cm/sec LV V1 max P.0 mmHg Ao max P.3 mmHg LV V1 VTI: 25.8 cm Ao mean P.7 mmHg JORGE(I,D): 2.5 cm2 Ao V2 VTI: 31.3 cm JORGE(V,D): 2.4 cm2 sev ratio: 0.82 JORGE indexed to BSA (cm^2/m^2): 1.5 MV E max amanuel: 108.5 cm/sec TR max amanuel: 215.8 cm/sec MV A max amanuel: 56.5 cm/sec TR max P.6 mmHg MV E/A: 1.9 PA V2 max: 68.6 cm/sec Med Peak E' Amanuel: 11.6 cm/sec PA V2 mean: 52.2 cm/sec E/E' med: 9.3 PA mean P.2 mmHg Lat Peak E' Amanuel: 11.7 cm/sec PA Accel Time: 0.16 sec E/E' lat: 9.2 E/e' average: 9.3 MV dec time: 0.18 sec SV(LVOT): 77.1 ml Reading Physician:05:20 PM
== END ==
PROVIDERS: Family Provider Nurse Practitioner; PCP Nurse Practitioner; Visit Provider Internal Medicine Cardiovascular Disease
DX: I49.3 Ventricular premature depolarization (principal); I37.1 Nonrheumatic pulmonary valve insufficiency
CPT/HCPCS: 93306

== ENCOUNTER → 2019-04-29 11:13 | Outpatient (CLI) | payer MEDICARE, SELFPAY ==
[2019-04-29 13:26] LABS: Alanine Aminotransferase 11 IU/L (<35); Albumin 4.6 g/dL (3.5-5.0); Albumin Globulin Ratio 1.4 (1.0-2.8); Alkaline Phosphatase 52 U/L (38-126); Aspartate Aminotransferase 23 IU/L (14-36); BUN Creatinine Ratio 18.6 (6-22); Bilirubin Total 0.9 mg/dL (0.2-1.3); Blood Urea Nitrogen 13 mg/dL (7-17); Calcium 9.8 mg/dL (8.4-10.2); Carbon Dioxide 26 mmol/L (22-32); Chloride 105 mmol/L (98-107); Cholesterol 215 mg/dL (140-199); Estimated Glomerular Filt Rate > 60.0 mL/min (>60); Globulin 3.2 g/dL (1.7-4.1); Glucose 84 mg/dL (70-100); HDL Cholesterol 50 mg/dL (40-60); HEMOLYSIS < 15 (0-50); LDL Cholesterol Calculated 153 mg/dL (<100); Potassium 4.7 mmol/L (3.4-5.1); Sodium 141 mmol/L (137-145); Total Protein 7.8 g/dL (6.3-8.2); Triglycerides 58 mg/dL (35-150)
[2019-04-29 13:37] LABS: Free T3, Triiodothyronine Free 2.86 pg/mL (2.77-5.27); Free T4, Direct Thyroxine 0.98 ng/dL (0.78-2.19)
[2019-04-29 13:51] LABS: Thyroid Stimulating Hormone 1.77 uIU/mL (0.47-4.68)
== END ==
PROVIDERS: Family Provider Nurse Practitioner; PCP Nurse Practitioner; Referring Provider Nurse Practitioner; Visit Provider Nurse Practitioner
DX: E03.9 Hypothyroidism, unspecified (principal); F32.9 Major depressive disorder, single episode, unspecified; F41.9 Anxiety disorder, unspecified; Z79.899 Other long term (current) drug therapy
CPT/HCPCS: 36415; 80053; 80061; 84439; 84443; 84481

== ENCOUNTER 2019-07-23 16:45 | Outpatient (RCR) | payer MEDICARE, SELFPAY ==
--- NOTE | 2019-05-10 17:02 | PT.OIE ---
Current Diagnoses Slow transit constipation (05/10/19) Stiffness of unspecified hip, not elsewhere classified (05/10/19) Low back pain (05/10/19) Stress incontinence (female) (male) (05/10/19) Pelvic and perineal pain (05/10/19) Unspecified urinary incontinence (05/10/19) Past Medical History (Last Reviewed 03/26/19 @ 17:04 by Nelly Al MD) Arnold-Chiari malformation (Chronic) History of anorexia nervosa (Acute) Past Surgical History (Last Reviewed 03/26/19 @ 17:04 by Nelly Al MD) History of spinal fusion Status post delivery Status post laminectomy Visit Care Team Role Provider Type VICTORIANO Buchanan Attending Provider [facility] [employer] Family Provider Primary Care Provider Referring Provider Specialty: [facility] Practice Address: [address] [place] [address], [facility] Email: [email or web address] Physical Therapy Initial Evaluation PT-OP-A Visit Information Start: 05/07/19 08:53 Freq: Status: Active Protocol: Document 05/10/19 14:26 LRN (Rec: 05/10/19 16:57 LRN [id number]) Out-Patient Physical Therapy Visit Information Visit Information Visit Type Initial Evaluation Visit Start Time 14:26 Visit Stop Time 15:22 Total Visit Minutes 56 Visit Number 1 Evaluation Information Evaluation Date 05/10/19 Precautions Precautions Per PMH review: Fibromyalgia, Schizoaffective disorder, depressive type (pt reports major depressive disorder, Arnold-Dhiari malformation, s/ p brain surgery x 2 Cervical fusion 2012 Constipation, Laxative abuse HX of Abdominal pain - lower abdominal PT-OP-B Current Condition Start: 05/07/19 08:53 Freq: Status: Active Protocol: Document 05/10/19 14:26 LRN (Rec: 05/10/19 16:57 LRN [id number]) Current Condition History of Current Condition Onset Date 6 months Current Complaints Wets underwear 5-7x/week History of Current Condition Pt attended by spouse. Pt had brain surgery 1 yr ago due to Chiari malformation of brain compressing onto brainstem, resulting in slowness of expressive thought. Incontinence used to be occasionally with coughing, but it occurs without warning sometimes. She reports leakage with an urge to urinate, or not being able to make it to the bathroom in time, resulting in soiling of underwear. She reports bladder , pain in the lower abdomen, sometimes every night in the evening. Prior Treatments and Tests None Future Testing and Treatments Planned None Developmental History Developmental History One son 19 yrs old, emergency due to mother's heart complications. Treatment Goals Patient/Caregiver Goals Pt goal with therapy is to decrease frequency or stop the incontinence. Prior Functional Status Baseline Function- ADL's Independent Baseline Function- Mobility Independent Current Functional Impairments (Reported) Functional Limitations- ADL's None, but pt is embarassed in public. Personal Factors Other Personal Factors That May Effect Schizoaffective disorder, Therapy/Recovery depressive type, Arnold-Chiari malformation s/p brain surgery x 2, Cervical fusion 2011, GOMEZ's and neck pain Constipation by delayed colonic transit, Laxative abuse HX of Abdominal pain - lower abdominal Neuropathy of hands and feet PT-OP-C Subjective Start: 05/07/19 08:53 Freq: Status: Active Protocol: Document 05/10/19 14:26 LRN (Rec: 05/10/19 16:57 LRN [id number]) Patient Questionnaires Pelvic Pain and Urgency/Frequency Patient Symptom Scale Pelvic Pain Score 9 OP-PT Pain Assessment Location L upper shoulder Pain Location Details L Upper Trapezius Intensity 7 Scale Used Numeric (1 - 10) Description Aching Posterior Neck Pain Location Details Posterior neck Intensity 5 Scale Used Numeric (1 - 10) Description Aching PT-OP-I Pelvic Floor Start: 05/07/19 08:53 Freq: Status: Active Protocol: Document 05/10/19 14:26 LRN (Rec: 05/10/19 16:57 LRN [id number]) Pelvic Floor Assessment Urine Urinary Symptoms Urge Sensation,Hesitancy Other Urinary Symptoms Sometimes has to push urine out. Leakage Cause Cough,Sneeze Leaks Per Day 1 Voiding Frequency 3-5/day Nocturia 0 Pads Used In 24 Hours Doesn't wear protective wear. Bowel Bowel Surgery No Bowel Symptoms Constipation Pelvic Clock Pelvic Clock 12-3 Tenderness Pelvic Clock 3-6 Tenderness Pelvic Clock 6-9 Tenderness Perineal Descent Resting Absent Bearing Absent Contraction Ability Voluntary Contraction Weak Voluntary Relaxation Weak Manual Muscle Testing Left 2 Manual Muscle Testing Right 3 Manual Muscle Testing Posterior 3 Muscle Endurance (Seconds) 3 Number of Quick Contractions In 10 3 Seconds Comments Pelvic Floor Comments PF Skin is dry, Labia Minora appears healthy. PT-OP-J Posture/Palpation/Skin Start: 05/07/19 08:53 Freq: Status: Active Protocol: Document 05/10/19 14:26 LRN (Rec: 05/10/19 16:57 LRN [id number]) Posture Evaluation Position Standing Evaluation View All positions Head/C-Spine Posture Forward Head T-Spine Posture Flattened L-Spine Posture Increased Lordosis Scapula Posture (L) Depressed Pelvis Posture Anteriorly Tilted Weight Distribution Balanced Ankle/Foot Posture (L) Pronated Foot Arch (L) Low Arch PT-OP-K Range of Motion Start: 05/07/19 08:53 Freq: Status: Active Protocol: Document 05/10/19 14:26 LRN (Rec: 05/10/19 16:57 LRN [id number]) Lumbar Spine Range of Motion Lumbar Spine Active Degrees Testing Position Standing Flexion 58 Extension 20 Lateral Flexion Left 12 Lateral Flexion Right 12 ROM Limitations Soft Tissue Tightness Hip Goniometric Range of Motion Hip Right Passive Testing Position Supine Straight Leg Raise 80 Abduction 30 Internal Rotation 35 External Rotation 50 Left Passive Testing Position Supine Straight Leg Raise 80 Abduction 40 Internal Rotation 35 External Rotation 65 PT-OP-M Strength Start: 05/07/19 08:53 Freq: Status: Active Protocol: Document 05/10/19 14:26 LRN (Rec: 05/10/19 16:57 LRN [id number]) Hip Strength Hip Manual Muscle Testing Right Comments Generally 5/5 except hip AB is 4/5. Left Comments Generally 5/5 except hip AB is 4/5. PT-OP-Q Treatments Start: 05/07/19 08:53 Freq: Status: Active Protocol: Document 05/10/19 14:26 LRN (Rec: 05/10/19 16:57 LRN [id number]) Therapeutic Exercises Sitting Exercises Deep Breathing Sitting Exercise Name Deep Breathing Reps/Minutes 2' Self-Care/Home Management Treatment Education Patient Education Home Exercise Program Other Education Spouse present throughout evaluation for education. Educated pt in use and completion of bladder dairy. Educated pt in positioning on the toilet to promote fecal voiding with use of squatty potty. Educated pt in deep breathing for muscle relaxation to assist in urinary voiding. Activities Self-Care/Home Management Activities Spouse present throughout evaluation for self care. I/S and demonstrated HEP stretches/ex for pt: SKTC, Hip AD stretch, deep breathing . PT-OP-T Assessment and Plan Start: 05/07/19 08:53 Freq: Status: Active Protocol: Document 05/10/19 14:26 LRN (Rec: 05/10/19 16:57 LRN [id number]) Physical Therapy Assessment Rehab Potential Rehabilitation Potential Good Evaluation Complexity Number of Personal Factors/Comorbidities 3 or More Number of Body Systems Impaired 4 or More Clinical Presentation at Evaluation Evolving Impairments Impairments Pain,Posture,ROM,Soft Tissue Mobility,Strength Other Impairments Fibromyalgia, Constant headaches Schizoaffective disorder, depressive type (pt resports major depressive disorder). Delayed colonic transit. Pt has IUD Goals PF pain Impairment Pain in 12-3, 3-6 of PF Clock, deep. Short Term Goal (STG) Eliminate pain of 12-6 of PF Clock. STG Duration 07/09/19 Government Affairs Manager Goal (LTG) Pt will demonstrate improved PF strength with a decrease in PF pain. LTG Duration 08/08/19 Constipation Impairment Constipation Short Term Goal (STG) Pt will be educated in Bowel ILU massage. STG Duration 05/24/19 Prison Goal (LTG) Stool type 4 or 5 on the [place] stool scale for the majority of daily voids. LTG Duration 08/08/19 Urinary leakage with stress Impairment Urinary leakage with strong cough Short Term Goal (STG) Pt will be able to cough with minimal urinary leakage. STG Duration 07/09/19 Government Affairs Manager Goal (LTG) Pt will be able to cough with no urinary leakage. Pt will be able to perform 10 quick contractions prior to fatigue LTG Duration 08/08/19 Urinary Incontinence Impairment Urinary incontinence 5-7x/week of few drops to wetting underwear Short Term Goal (STG) Pt will be able to relax and void without using a valsalva maneuver. STG Duration 07/09/19 Government Affairs Manager Goal (LTG) Pt will decrease leakage to 0- 1x/week LTG Duration 08/08/19 HEP Impairment Pt lacks an independent self care HEP Government Affairs Manager Goal (LTG) Pt will be independent in a self care HEP. LTG Duration 08/08/19 Assessment Summary Assessment Pt presents stress urinary incontinence associated with pain and tightness of the PF, primarily in 12-6 of the PF clock. She has difficulty urinating and defecating, and describes her voiding method as typically a Valsalva maneuver. Internal palpation of the PF was slightly less than 2 finger joints internally due to discomfort; therefore her tenderness was prior to her IUD location, IUD not palpated. The pt's incontinence appears to be more related to increased PF tone and possibly due to fascial restrictions in the PF and abdominal region. Her level of continence is probably hindered by her constipation; therefore improvement of her colonic system will help improve her urinary incontinence as well. The pt would benefit from nutritional counseling. The pt will benefit from skilled physical therapy to decrease PF pain, improve PF muscle tone and strength, and therefore improve her level of continence. It is expected that the pt's rehabilitation will be extended due to her multiple comorbidities. Physical Therapy Plan Frequency and Duration Frequency of Treatment 1x/Week Plan of Care Start Date 05/10/19 Plan of Care End Date 08/08/19 Therapeutic Interventions Therapeutic Interventions Home Exercise Program,Joint Mobilizations,Manual Therapy, Neuromuscular Re-education, Patient/Caregiver Education, Self-Care/Home Management,Soft Tissue Mobilization,Taping, Therapeutic Activities, Therapeutic Exercises Modalities Biofeedback,Cold Pack/Ice Massage,Electric Stimulation Other Referrals/Consults Referrals/Consults Recommended Nutritional consult Next Visit Focus/Plan Next Note Type Treatment Note Next Visit Plan Assess for bowel dysfunction and abdominal fascial restrictions. Review Bladder diary and make recommendations as appropriate. Initiate self care ex's (issue handouts ): Hip and trunk mobility ex' s, external PF stretching and if cleared, internal PF stretching. Check low back and coccyx alignment. Start core stabilization training.
--- NOTE | 2019-05-17 15:40 | PT.OTN ---
Current Diagnoses Slow transit constipation (05/17/19) Stiffness of unspecified hip, not elsewhere classified (05/17/19) Low back pain (05/17/19) Stress incontinence (female) (male) (05/17/19) Pelvic and perineal pain (05/17/19) Unspecified urinary incontinence (05/17/19) Physical Therapy Treatment Note PT-OP-A Visit Information Start: 05/07/19 08:53 Freq: Status: Active Protocol: Document 05/17/19 14:17 LRN (Rec: 05/17/19 15:39 LRN [id number]) Out-Patient Physical Therapy Visit Information Visit Information Visit Type Treatment Note Visit Start Time 14:17 Visit Stop Time 15:02 Total Visit Minutes 45 Visit Number 2 Evaluation Information Evaluation Date 05/10/19 Precautions Precautions Per pt: IUD. Note: Pt previous profession was [employer] L[employer] Per [facility] review: Fibromyalgia, Schizoaffective disorder, depressive type (pt reports major depressive disorder, Arnold-Dhiari malformation, s/ p brain surgery x 2 Cervical fusion 2011 Constipation, Laxative abuse HX of Abdominal pain - lower abdominal PT-OP-B Current Condition Start: 05/07/19 08:53 Freq: Status: Active Protocol: Document 05/10/19 14:26 LRN (Rec: 05/10/19 16:57 LRN [id number]) Current Condition History of Current Condition Onset Date 6 months Current Complaints Wets underwear 5-7x/week History of Current Condition Pt attended by spouse. Pt had brain surgery 1 yr ago due to Chiari malformation of brain compressing onto brainstem, resulting in slowness of expressive thought. Incontinence used to be occasionally with coughing, but it occurs without warning sometimes. She reports leakage with an urge to urinate, or not being able to make it to the bathroom in time, resulting in soiling of underwear. She reports bladder , pain in the lower abdomen, sometimes every night in the evening. Prior Treatments and Tests None Future Testing and Treatments Planned None Developmental History Developmental History One son 19 yrs old, emergency due to mother's heart complications. Treatment Goals Patient/Caregiver Goals Pt goal with therapy is to decrease frequency or stop the incontinence. Prior Functional Status Baseline Function- ADL's Independent Baseline Function- Mobility Independent Current Functional Impairments (Reported) Functional Limitations- ADL's None, but pt is embarassed in public. Personal Factors Other Personal Factors That May Effect Schizoaffective disorder, Therapy/Recovery depressive type, Arnold-Chiari malformation s/p brain surgery x 2, Cervical fusion 2011, GOMEZ's and neck pain Constipation by delayed colonic transit, Laxative abuse HX of Abdominal pain - lower abdominal Neuropathy of hands and feet PT-OP-C Subjective Start: 05/07/19 08:53 Freq: Status: Active Protocol: Document 05/17/19 14:17 LRN (Rec: 05/17/19 15:39 LRN [id number]) OP-PT Subjective Patient Comments Patient Comments States she tends to ignore the urge when she has to urinate. C/O lower abdomen spasming feeling weird. PT-OP-I Pelvic Floor Start: 05/07/19 08:53 Freq: Status: Active Protocol: Document 05/10/19 14:26 LRN (Rec: 05/10/19 16:57 LRN [id number]) Pelvic Floor Assessment Urine Urinary Symptoms Urge Sensation,Hesitancy Other Urinary Symptoms Sometimes has to push urine out. Leakage Cause Cough,Sneeze Leaks Per Day 1 Voiding Frequency 3-5/day Nocturia 0 Pads Used In 24 Hours Doesn't wear protective wear. Bowel Bowel Surgery No Bowel Symptoms Constipation Pelvic Clock Pelvic Clock 12-3 Tenderness Pelvic Clock 3-6 Tenderness Pelvic Clock 6-9 Tenderness Perineal Descent Resting Absent Bearing Absent Contraction Ability Voluntary Contraction Weak Voluntary Relaxation Weak Manual Muscle Testing Left 2 Manual Muscle Testing Right 3 Manual Muscle Testing Posterior 3 Muscle Endurance (Seconds) 3 Number of Quick Contractions In 10 3 Seconds Comments Pelvic Floor Comments PF Skin is dry, Labia Minora appears healthy. PT-OP-J Posture/Palpation/Skin Start: 05/07/19 08:53 Freq: Status: Active Protocol: Document 05/10/19 14:26 LRN (Rec: 05/10/19 16:57 LRN [id number]) Posture Evaluation Position Standing Evaluation View All positions Head/C-Spine Posture Forward Head T-Spine Posture Flattened L-Spine Posture Increased Lordosis Scapula Posture (L) Depressed Pelvis Posture Anteriorly Tilted Weight Distribution Balanced Ankle/Foot Posture (L) Pronated Foot Arch (L) Low Arch PT-OP-K Range of Motion Start: 05/07/19 08:53 Freq: Status: Active Protocol: Document 05/10/19 14:26 LRN (Rec: 05/10/19 16:57 LRN [id number]) Lumbar Spine Range of Motion Lumbar Spine Active Degrees Testing Position Standing Flexion 58 Extension 20 Lateral Flexion Left 12 Lateral Flexion Right 12 ROM Limitations Soft Tissue Tightness Hip Goniometric Range of Motion Hip Right Passive Testing Position Supine Straight Leg Raise 80 Abduction 30 Internal Rotation 35 External Rotation 50 Left Passive Testing Position Supine Straight Leg Raise 80 Abduction 40 Internal Rotation 35 External Rotation 65 PT-OP-M Strength Start: 05/07/19 08:53 Freq: Status: Active Protocol: Document 05/10/19 14:26 LRN (Rec: 05/10/19 16:57 LRN [id number]) Hip Strength Hip Manual Muscle Testing Right Comments Generally 5/5 except hip AB is 4/5. Left Comments Generally 5/5 except hip AB is 4/5. PT-OP-Q Treatments Start: 05/07/19 08:53 Freq: Status: Active Protocol: Document 05/17/19 14:17 LRN (Rec: 05/17/19 15:39 LRN [id number]) Therapeutic Exercises Supine Exercises Lateral hip stretch Supine Exercise Name Lateral hip stretch Side bilateral Reps/Minutes 1' hold Piriformis stretch Supine Exercise Name Piriformis stretch Side bilateral Reps/Minutes 1' hold each Comments Extra time taken for training SKTC Supine Exercise Name SKTC stretch Side bilateral Reps/Minutes 1' hold each Manual Therapy Treatment Soft Tissue Mobilization Lower abdomen @ well healed scar Body Location Lower abdomen, bladder fascia Mobilization Type Myofascial Release Intensity/Depth Superficial Body Position Hooklying Comments Manual mob of bladder helped relieve squirming feeling. PRECAUTION: Pt with IUD Self-Care/Home Management Treatment Education Patient Education Body Mechanics,Home Exercise Program Caregiver Education Spouse present throughout treatment. Other Education *Educated pt in bladder retraining with review of handout and instructions for variations of need to urinate. *Reviewed Bladder dairy at length and discussed normal hydration value (1/2 body wgt in ozs) and variations based on intake drink type. *Educated pt in Food/Beverages to avoid, potentially avoid & not irritating to bladder. Discussed possible changes to list (ex-dorie, pineapple). Activities Self-Care/Home Management Activities Issue Bladder retraining handout. Issued, reviewed, discussed handouts for HEP: SKTC, Hip AD stretches, Piriformis stretch . Discussed reason for use of squatty potty for fecal voiding due to constipation. I/S pt in self MFR of superficial tissues of lower abdominal region. Pt advised not to push down but to move more parallel to the skin. PT-OP-T Assessment and Plan Start: 05/07/19 08:53 Freq: Status: Active Protocol: Document 05/17/19 14:17 LRN (Rec: 05/17/19 15:39 LRN [id number]) Physical Therapy Assessment Goals PF pain Impairment Pain in 12-3, 3-6 of PF Clock, deep. Short Term Goal (STG) Eliminate pain of 12-6 of PF Clock. STG Duration 07/09/19 Mcfp Goal (LTG) Pt will demonstrate improved PF strength with a decrease in PF pain. LTG Duration 08/08/19 Constipation Impairment Constipation Short Term Goal (STG) Pt will be educated in Bowel ILU massage. STG Duration 05/24/19 Polisher And Buffer Goal (LTG) Stool type 4 or 5 on the Montgomery stool scale for the majority of daily voids. LTG Duration 08/08/19 Urinary leakage with stress Impairment Urinary leakage with strong cough Short Term Goal (STG) Pt will be able to cough with minimal urinary leakage. STG Duration 07/09/19 Mcfp Goal (LTG) Pt will be able to cough with no urinary leakage. Pt will be able to perform 10 quick contractions prior to fatigue LTG Duration 08/08/19 Urinary Incontinence Impairment Urinary incontinence 5-7x/week of few drops to wetting underwear Short Term Goal (STG) Pt will be able to relax and void without using a valsalva maneuver. STG Duration 07/09/19 Mcfp Goal (LTG) Pt will decrease leakage to 0- 1x/week LTG Duration 08/08/19 HEP Impairment Pt lacks an independent self care HEP Mcfp Goal (LTG) Pt will be independent in a self care HEP. LTG Duration 08/08/19 Assessment Summary Assessment Pt presents stress urinary incontinence associated with pain and tightness of the PF, primarily in 12-6 of the PF clock. Her Squirming and spasming is in the area of the bladder and possibly uterus; therefore IUD may be causing discomfort. No change with difficulty urinating and defecating. The pt's incontinence appears to be more related to increased PF tone and possibly due to fascial restrictions in the PF and abdominal region. Her level of continence is probably hindered by her constipation; therefore improvement of her colonic system will help improve her urinary incontinence as well. Physical Therapy Plan Frequency and Duration Frequency of Treatment 1x/Week Plan of Care Start Date 05/10/19 Plan of Care End Date 08/08/19 Next Visit Focus/Plan Next Note Type Treatment Note Next Visit Plan Assess for bowel dysfunction. Review for changes in Bladder function and make recommendations as appropriate if new bladder diary made. Initiate self care ex's (issue handouts): trunk mobility ex 's, external PF stretching and if cleared, internal PF stretching. Check low back and coccyx alignment. Start core stabilization training.
--- NOTE | 2019-07-04 09:19 | PT-OP ANOTE ---
Per telephone conversation, pt was notified of reopening the clinic soon while following CDC guidelines. Discussed rules for social distancing, wearing of mask and hand washing, & limiting number of patients and PT?s in open areas. Pt is agreeable to receive a call to be be placed on a schedule for the future.
--- NOTE | 2019-07-23 18:39 | PT.OTN ---
Current Diagnoses Slow transit constipation (07/23/19) Stiffness of unspecified hip, not elsewhere classified (07/23/19) Low back pain (07/23/19) Stress incontinence (female) (male) (07/23/19) Pelvic and perineal pain (07/23/19) Unspecified urinary incontinence (07/23/19) Physical Therapy Treatment Note PT-OP-A Visit Information Start: 05/07/19 08:53 Freq: Status: Active Protocol: Document 07/23/19 16:57 LRN (Rec: 07/23/19 18:38 LRN [id number]) Out-Patient Physical Therapy Visit Information Visit Information Visit Type Progress Note Visit Start Time 16:57 Visit Stop Time 17:40 Total Visit Minutes 43 Visit Number 3 Evaluation Information Evaluation Date 05/10/19 Precautions Precautions Per pt: IUD. 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 Per [facility] review: Fibromyalgia, Schizoaffective disorder, depressive type (pt reports major depressive disorder, Arnold-Dhiari malformation, s/ p brain surgery x 2 Cervical fusion 2011 Constipation, Laxative abuse HX of Abdominal pain - lower abdominal PT-OP-B Current Condition Start: 05/07/19 08:53 Freq: Status: Active Protocol: Document 07/23/19 16:57 LRN (Rec: 07/23/19 18:38 LRN [id number]) Current Condition History of Current Condition Onset Date 11/2018 Current Complaints Wets underwear 5-7x/week History of Current Condition Pt returns followin Covid-19 social distancing ban. Hx: Pt had brain surgery 1 yr ago due to Chiari malformation of brain compressing onto brainstem, resulting in slowness of expressive thought. Incontinence was occasionally with coughing, but occurs without warning sometimes. She reports leakage with an urge to urinate, or not being able to make it to the bathroom in time, resulting in soiling of underwear. She reports bladder pain/ms spasm in the lower abdomen now every night in the evening. Prior Treatments and Tests None Future Testing and Treatments Planned None Developmental History Developmental History One son 19 yrs old, emergency due to mother's heart complications. See above for other history information. Treatment Goals Patient/Caregiver Goals Pt goal with therapy is to decrease frequency or stop the incontinence. Prior Functional Status Baseline Function- ADL's Independent Baseline Function- Mobility Independent Current Functional Impairments (Reported) Functional Limitations- ADL's None, but pt is embarassed in public. Difficulty retaining information since brain surgery 1 yr ago. Personal Factors Other Personal Factors That May Effect Schizoaffective disorder, Therapy/Recovery depressive type, Arnold-Chiari malformation s/p brain surgery x 2, Cervical fusion 2011, GOMEZ's and neck pain Constipation by delayed colonic transit, Laxative abuse HX of Abdominal pain - lower abdominal Neuropathy of hands and feet PT-OP-C Subjective Start: 05/07/19 08:53 Freq: Status: Active Protocol: Document 07/23/19 16:57 LRN (Rec: 07/23/19 18:38 LRN [id number]) OP-PT Subjective Patient Comments Patient Comments Concerned that her spouse cannot be with her during therapy throughout therapy due to Covid-19 for social distancing restrictions. Has been a little more active doing gardening activities. The discomfort in the lower abdomen is worse now, every night vs a few days a week. Makes leg move a lot, restless leg medications aren' t working. Has been trying to do massage. OP-PT Pain Assessment Pain Assessment Grid Paper Pain Assessment Grid Completed No Location Lower Abdomen Pain Location Details Lower abdomen Intensity 7 Description Pressure,Spasm Frequency Intermittent Pelvic Floor Pain Location Details Pelvic Floor Intensity 4 Description Sharp,Spasm Frequency Intermittent Low Back Pain Location Details Low Back Intensity 7 Frequency Constant L upper shoulder Pain Location Details L Upper Trapezius Intensity 6 Scale Used Numeric (1 - 10) Description Aching Frequency Constant Posterior Neck Pain Location Details Posterior neck Intensity 6 Scale Used Numeric (1 - 10) Description Aching Frequency Constant PT-OP-I Pelvic Floor Start: 05/07/19 08:53 Freq: Status: Active Protocol: Document 07/23/19 16:57 LRN (Rec: 07/23/19 18:38 LRN [id number]) Pelvic Floor Assessment Urine Urinary Symptoms Urge Sensation,Hesitancy Other Urinary Symptoms Sometimes has to push urine out at end of voiding and sometimes the urine squirts out forward onto the floor. Leakage Cause Cough,Sneeze Leaks Per Day 1 Voiding Frequency 3-5/day Nocturia 0 Pads Used In 24 Hours Sometimes wears protective padding when spouse reminds her Bowel Bowel Surgery No Bowel Symptoms Constipation Pelvic Clock Pelvic Clock 3-6 Tenderness Pelvic Clock 6-9 Tenderness Perineal Descent Resting Absent Bearing Absent Contraction Ability Voluntary Contraction Weak Voluntary Relaxation Weak Manual Muscle Testing Left 3 Manual Muscle Testing Right 2 Manual Muscle Testing Anterior 3 Manual Muscle Testing Posterior 3 Muscle Endurance (Seconds) 5 Number of Quick Contractions In 10 4 Seconds Comments Pelvic Floor Comments PF Skin is dry, Labia Minora appears healthy. PT-OP-J Posture/Palpation/Skin Start: 05/07/19 08:53 Freq: Status: Active Protocol: Document 05/10/19 14:26 LRN (Rec: 05/10/19 16:57 LRN [id number]) Posture Evaluation Position Standing Evaluation View All positions Head/C-Spine Posture Forward Head T-Spine Posture Flattened L-Spine Posture Increased Lordosis Scapula Posture (L) Depressed Pelvis Posture Anteriorly Tilted Weight Distribution Balanced Ankle/Foot Posture (L) Pronated Foot Arch (L) Low Arch PT-OP-K Range of Motion Start: 05/07/19 08:53 Freq: Status: Active Protocol: Document 05/10/19 14:26 LRN (Rec: 05/10/19 16:57 LRN [id number]) Lumbar Spine Range of Motion Lumbar Spine Active Degrees Testing Position Standing Flexion 58 Extension 20 Lateral Flexion Left 12 Lateral Flexion Right 12 ROM Limitations Soft Tissue Tightness Hip Goniometric Range of Motion Hip Right Passive Testing Position Supine Straight Leg Raise 80 Abduction 30 Internal Rotation 35 External Rotation 50 Left Passive Testing Position Supine Straight Leg Raise 80 Abduction 40 Internal Rotation 35 External Rotation 65 PT-OP-M Strength Start: 05/07/19 08:53 Freq: Status: Active Protocol: Document 05/10/19 14:26 LRN (Rec: 05/10/19 16:57 LRN [id number]) Hip Strength Hip Manual Muscle Testing Right Comments Generally 5/5 except hip AB is 4/5. Left Comments Generally 5/5 except hip AB is 4/5. PT-OP-Q Treatments Start: 05/07/19 08:53 Freq: Status: Active Protocol: Document 07/23/19 16:57 LRN (Rec: 07/23/19 18:38 LRN [id number]) Therapeutic Exercises Supine Exercises PF Long Holds Supine Exercise Name Long Holds Comments Pt awareness training for activiation of R side and Relaxation of L side PF Quick Flicks Supine Exercise Name Quick Flicks Comments Mild contraction on L Pelvic Floor Clock, (R side) even after v cuing Manual Therapy Treatment Soft Tissue Mobilization Lower abdomen @ well healed scar Body Location Lower abdomen, bladder fascia Mobilization Type Myofascial Release Intensity/Depth Superficial Body Position Hooklying Comments Manual mob of bladder helped relieve squirming feeling. PRECAUTION: IUD Implant Neuro Re-Education Treatment Other Activities PF Quick Flicks Details PF contraction of superficial ms - 1 knuckle deep Comments Pt awareness training for lateral kim. PF Long Holds Details PF contraction of deeper ms - 2 knuckle joint deep Comments Pt awareness training for activiation of R side and Relaxation of L side Self-Care/Home Management Treatment Education Patient Education Home Exercise Program Other Education Training of pt in self scar mobilization with hands on hands training both at scar and in upper abdomen. Pt shown acceptable skin tugging amount not eliciting pain. Activities Self-Care/Home Management Activities Issued new handouts for Bladder diary with review of instructions for completing. Pt needed review due to questionable retention resulting from brain surgery 1 yr ago. Discussed options of pt learning self care techniques with abscence of her spouse (ex - taping instructions on tape recorder, possible phone). PT-OP-T Assessment and Plan Start: 05/07/19 08:53 Freq: Status: Active Protocol: Document 07/23/19 16:57 LRN (Rec: 07/23/19 18:38 LRN [id number]) Physical Therapy Assessment Rehab Potential Rehabilitation Potential Good Evaluation Complexity Number of Personal Factors/Comorbidities 3 or More Number of Body Systems Impaired 4 or More Clinical Presentation at Evaluation Evolving Impairments Impairments Pain,Posture,ROM,Soft Tissue Mobility,Strength Other Impairments Fibromyalgia, Constant headaches Schizoaffective disorder, depressive type (pt resports major depressive disorder). Delayed colonic transit. Pt has IUD Goals PF pain Impairment Pain in 12-3, 3-6 of PF Clock, deep. Short Term Goal (STG) Eliminate pain of 12-6 of PF Clock. STG Duration 09/08/19 (08/02/19: Pain is all around the PF) Signals Officer Goal (LTG) Pt will demonstrate improved PF strength with a decrease in PF pain. LTG Duration 11/20/19 Constipation Impairment Constipation Short Term Goal (STG) Pt will be educated in Bowel ILU massage. STG Duration 09/23/19 (07/23/19: Pt not doing) Signals Officer Goal (LTG) Stool type 4 or 5 on the Jackson stool scale for the majority of daily voids. LTG Duration 11/20/19 Urinary leakage with stress Impairment Urinary leakage with strong cough Short Term Goal (STG) Pt will be able to cough with minimal urinary leakage. STG Duration 09/08/19 (08/02/19: No Change) [facility] Goal (LTG) Pt will be able to cough with no urinary leakage. Pt will be able to perform 10 quick contractions prior to fatigue LTG Duration 11/20/19 (08/02/19) Urinary Incontinence Impairment Urinary incontinence 5-7x/week of few drops to wetting underwear Short Term Goal (STG) Pt will be able to relax and void without using a valsalva maneuver. STG Duration 09/08/19 (08/02/19) [facility] Goal (LTG) Pt will decrease leakage to 0- 1x/week LTG Duration 11/20/19 (08/02/19) HEP Impairment Pt lacks an independent self care HEP [facility] Goal (LTG) Pt will be independent in a self care HEP. LTG Duration 11/20/19 (08/02/19) Assessment Summary Assessment Pt returns after interruption of her rehabilitation program due to Covid 19 retrictions. Per subjective report the pt's BM's are a little easier with positional changes, but urinary voiding remains difficult to fully empty and maintain continence. She appears to have soft tissue restrictions and tightness in the abdomen and PF clock 12-6. She has moderate tenderness with light pressure internally at 3-9 of her PF clock as assessed 2 knuckle deep. The pt has questionable understanding of self skin/ scar mobilization after training due to her limitations following her brain surgery. Physical Therapy Plan Frequency and Duration Frequency of Treatment 1x/Week Plan of Care Start Date 07/23/19 Plan of Care End Date 11/20/19 Therapeutic Interventions Therapeutic Interventions Home Exercise Program,Joint Mobilizations,Manual Therapy, Neuromuscular Re-education, Patient/Caregiver Education, Self-Care/Home Management,Soft Tissue Mobilization,Taping, Therapeutic Activities, Therapeutic Exercises Modalities Biofeedback,Cold Pack/Ice Massage,Electric Stimulation Other Referrals/Consults Referrals/Consults Recommended Recommend nutritional consult. Next Visit Focus/Plan Next Note Type Treatment Note Next Visit Plan Assess need for spouse listening presence per mobile phone if appropriate. Review self care skin mob techniques to assure pt is remaining superficial and not mobilizing IUD. Review Bladder Diary to assess bowel function. Issue ILU massage. Scar Mobilization as appropriate with IUD. Initiate self care ex's: trunk mobility ex's, external PF stretching with care of IUD. Check low back and coccyx alignment. Start core stabilization training. Train proper breathing and voiding technique to prevent bearing down with urination. New area of pain is in the Low back, possibly from increased recreational gardening, body mechanics training may be needed. No change in abdominal/PF pain or urinary incontinence condition, as expected due to interruption of program. The pt would benefit from continuation of her therapy program to help reduce her PF/ abdominal pain and general mobility limitations. Her progress may be slow due to her cognitive limitations following her brain surgery.
--- NOTE | 2019-08-19 10:47 | PT-OP ANOTE ---
Pt cancelled 09:50 for 10:30 appt. due to sickness.
--- NOTE | 2019-10-15 09:19 | PT-OP ANOTE ---
PT calls pt about PT plan. Pt states that she would like to con't with PT but she has some trauma and asks if her can sit in for appointments. Primary therapist, Martha, is agreeable with this. PT also clears with front office staff and they will call pt to schedule.
--- NOTE | 2019-11-18 17:46 | PT-OP ANOTE ---
Per phone conversation the pt states she didn't realize she had an appt today and has it as 11/25/19, which she was going to have to cancel due to an neurosurgeon appt that same day. The clinics cancellation policy was explained and because she was a NO SHOW today and she was canceling her next appt and her POC was expiring on 11/22/19; feasibility of continuing her therapy was discussed and the pt was agreeable to discharging from therapy for now and will seek a new referral to return to therapy when her schedule is more permitting for her to commit to participtating in a PT program. Pt is being discharged today from physical therapy.
--- NOTE | 2019-11-19 17:39 | PT.OPDS ---
Current Diagnoses Slow transit constipation (07/23/19) Stiffness of unspecified hip, not elsewhere classified (07/23/19) Low back pain (07/23/19) Stress incontinence (female) (male) (07/23/19) Pelvic and perineal pain (07/23/19) Unspecified urinary incontinence (07/23/19) Visit Care Team Role Provider Type VICTORIANO Buchanan Attending Provider [employer] Specialist Family Provider Primary Care Provider Referring Provider Specialty: Family Practice Address: [address] [place] [address], [facility] Email: [email or web address] Visit Number Visit Number 3 Discharge Summary PT-OP-B Current Condition Start: 05/07/19 08:53 Freq: Status: Active Protocol: Document 07/23/19 16:57 LRN (Rec: 07/23/19 18:38 LRN [id number]) Current Condition History of Current Condition Onset Date 11/2018 Current Complaints Wets underwear 5-7x/week History of Current Condition Pt returns followin Covid-19 social distancing ban. Hx: Pt had brain surgery 1 yr ago due to Chiari malformation of brain compressing onto brainstem, resulting in slowness of expressive thought. Incontinence was occasionally with coughing, but occurs without warning sometimes. She reports leakage with an urge to urinate, or not being able to make it to the bathroom in time, resulting in soiling of underwear. She reports bladder pain/ms spasm in the lower abdomen now every night in the evening. Prior Treatments and Tests None Future Testing and Treatments Planned None Developmental History Developmental History One son 19 yrs old, emergency due to mother's heart complications. See above for other history information. Treatment Goals Patient/Caregiver Goals Pt goal with therapy is to decrease frequency or stop the incontinence. Prior Functional Status Baseline Function- ADL's Independent Baseline Function- Mobility Independent Current Functional Impairments (Reported) Functional Limitations- ADL's None, but pt is embarassed in public. Difficulty retaining information since brain surgery 1 yr ago. Personal Factors Other Personal Factors That May Effect Schizoaffective disorder, Therapy/Recovery depressive type, Arnold-Chiari malformation s/p brain surgery x 2, Cervical fusion 2011, GOMEZ's and neck pain Constipation by delayed colonic transit, Laxative abuse HX of Abdominal pain - lower abdominal Neuropathy of hands and feet PT-OP-C Subjective Start: 05/07/19 08:53 Freq: Status: Active Protocol: Document 07/23/19 16:57 LRN (Rec: 07/23/19 18:38 LRN [id number]) OP-PT Subjective Patient Comments Patient Comments Concerned that her spouse cannot be with her during therapy throughout therapy due to Covid-19 for social distancing restrictions. Has been a little more active doing gardening activities. The discomfort in the lower abdomen is worse now, every night vs a few days a week. Makes leg move a lot, restless leg medications aren' t working. Has been trying to do massage. OP-PT Pain Assessment Pain Assessment Grid Paper Pain Assessment Grid Completed No Location Lower Abdomen Pain Location Details Lower abdomen Intensity 7 Description Pressure,Spasm Frequency Intermittent Pelvic Floor Pain Location Details Pelvic Floor Intensity 4 Description Sharp,Spasm Frequency Intermittent Low Back Pain Location Details Low Back Intensity 7 Frequency Constant L upper shoulder Pain Location Details L Upper Trapezius Intensity 6 Scale Used Numeric (0 - 10) Description Aching Frequency Constant Posterior Neck Pain Location Details Posterior neck Intensity 6 Scale Used Numeric (0 - 10) Description Aching Frequency Constant PT-OP-I Pelvic Floor Start: 05/07/19 08:53 Freq: Status: Active Protocol: Document 07/23/19 16:57 LRN (Rec: 07/23/19 18:38 LRN [id number]) Pelvic Floor Assessment Urine Urinary Symptoms Urge Sensation,Hesitancy Other Urinary Symptoms Sometimes has to push urine out at end of voiding and sometimes the urine squirts out forward onto the floor. Leakage Cause Cough,Sneeze Leaks Per Day 1 Voiding Frequency 3-5/day Nocturia 0 Pads Used In 24 Hours Sometimes wears protective padding when spouse reminds her Bowel Bowel Surgery No Bowel Symptoms Constipation Pelvic Clock Pelvic Clock 3-6 Tenderness Pelvic Clock 6-9 Tenderness Perineal Descent Resting Absent Bearing Absent Contraction Ability Voluntary Contraction Weak Voluntary Relaxation Weak Manual Muscle Testing Left 3 Manual Muscle Testing Right 2 Manual Muscle Testing Anterior 3 Manual Muscle Testing Posterior 3 Muscle Endurance (Seconds) 5 Number of Quick Contractions In 10 4 Seconds Comments Pelvic Floor Comments PF Skin is dry, Labia Minora appears healthy. PT-OP-J Posture/Palpation/Skin Start: 05/07/19 08:53 Freq: Status: Active Protocol: Document 05/10/19 14:26 LRN (Rec: 05/10/19 16:57 LRN [id number]) Posture Evaluation Position Standing Evaluation View All positions Head/C-Spine Posture Forward Head T-Spine Posture Flattened L-Spine Posture Increased Lordosis Scapula Posture (L) Depressed Pelvis Posture Anteriorly Tilted Weight Distribution Balanced Ankle/Foot Posture (L) Pronated Foot Arch (L) Low Arch PT-OP-K Range of Motion Start: 05/07/19 08:53 Freq: Status: Active Protocol: Document 05/10/19 14:26 LRN (Rec: 05/10/19 16:57 LRN [id number]) Lumbar Spine Range of Motion Lumbar Spine Active Degrees Testing Position Standing Flexion 58 Extension 20 Lateral Flexion Left 12 Lateral Flexion Right 12 ROM Limitations Soft Tissue Tightness Hip Goniometric Range of Motion Hip Right Passive Testing Position Supine Straight Leg Raise 80 Abduction 30 Internal Rotation 35 External Rotation 50 Left Passive Testing Position Supine Straight Leg Raise 80 Abduction 40 Internal Rotation 35 External Rotation 65 PT-OP-M Strength Start: 05/07/19 08:53 Freq: Status: Active Protocol: Document 05/10/19 14:26 LRN (Rec: 05/10/19 16:57 LRN [id number]) Hip Strength Hip Manual Muscle Testing Right Comments Generally 5/5 except hip AB is 4/5. Left Comments Generally 5/5 except hip AB is 4/5. PT-OP-T Assessment and Plan Start: 05/07/19 08:53 Freq: Status: Active Protocol: Document 11/18/19 17:50 LRN (Rec: 11/18/19 18:00 LRN [id number]) Physical Therapy Assessment Goals PF pain Impairment Pain in 12-3, 3-6 of PF Clock, deep. Short Term Goal (STG) Eliminate pain of 12-6 of PF Clock. STG Duration 09/08/19 (11/18/19: NOT MET GOAL) Prison Goal (LTG) Pt will demonstrate improved PF strength with a decrease in PF pain. LTG Duration 11/20/19 (11/18/19: NOT MET GOAL) Constipation Impairment Constipation Short Term Goal (STG) Pt will be educated in Bowel ILU massage. STG Duration 09/23/19 (11/18/19: NOT MET GOAL) Liquor Merchant Goal (LTG) Stool type 4 or 5 on the Steinauer stool scale for the majority of daily voids. LTG Duration 11/20/19 (11/18/19: NOT MET GOAL) Urinary leakage with stress Impairment Urinary leakage with strong cough Short Term Goal (STG) Pt will be able to cough with minimal urinary leakage. STG Duration 09/08/19 (11/18/19: NOT MET GOAL) Liquor Merchant Goal (LTG) Pt will be able to cough with no urinary leakage. Pt will be able to perform 10 quick contractions prior to fatigue LTG Duration 11/20/19 (11/18/19: NOT MET GOAL) Urinary Incontinence Impairment Urinary incontinence 5-7x/week of few drops to wetting underwear Short Term Goal (STG) Pt will be able to relax and void without using a valsalva maneuver. STG Duration 09/08/19 (11/18/19: NOT MET GOAL) Prison Goal (LTG) Pt will decrease leakage to 0- 1x/week LTG Duration 11/20/19 (11/18/19: NOT MET GOAL) HEP Impairment Pt lacks an independent self care HEP Prison Goal (LTG) Pt will be independent in a self care HEP. LTG Duration 11/20/19 (11/18/19: NOT MET GOAL) Assessment Summary Assessment Pt has been seen once, on 07/22, following the COVID 19 Pandemic. At that time, Per subjective report the pt's BM' s are a little easier with positional changes, but urinary voiding remains difficult to fully empty and maintain continence. She appears to have soft tissue restrictions and tightness in the abdomen and PF clock 12-6. She had moderate tenderness with light pressure internally at 3-9 of her PF clock as assessed 2 knuckle deep. The pt had questionable understanding of self skin/ scar mobilization after training due to her limitations following her brain surgery. The pt attended the therapy without the presence of her spouse due to minimal distance requirements from COVID 19 restrictions; therefore retention of the information from the visit may have hindered her in returning for further therapy. The pt is not available today for final assessment. Goal not met due to failure to complete the rehabilitation program. Physical Therapy Plan Discharge Physical Therapy Discharge Comments Pt is being discharged from physical therapy due to lack of attendance. Pt did not show for her appt today and per phone conversation was planning on canceling her next appt due to another medical appt. Due to the [facility] attendance policy the pt will not be attending 2 visits in a row; and DNS for her re-evaluation visit; therefore she is being discharged from PT. The pt was agreeable to seek another PT referral when her schedule is less busy and when she can commit to participating in the rehabilitation program.
== END 2019-11-22 14:06 ==
LOC: PHYS 16:45
PROVIDERS: Family Provider Nurse Practitioner; PCP Nurse Practitioner; Referring Provider Nurse Practitioner; Visit Provider Nurse Practitioner
DX: N39.3 Stress incontinence (female) (male) (principal); R10.2 Pelvic and perineal pain; K59.01 Slow transit constipation; M25.659 Stiffness of unspecified hip, not elsewhere classified; M54.5 Low back pain
CPT/HCPCS: 97110; 97112; 97140; 97162; 97535

== ENCOUNTER → 2019-08-24 15:05 | Outpatient (CLI) | payer MEDICARE, MEDICAID, SELFPAY ==
--- NOTE | 2019-08-24 15:06 | DI.MG.S_ITS ---
BILATERAL DIGITAL SCREENING MAMMOGRAM 3D/2D WITH CAD: 08/24/2019 CLINICAL: Routine screening. Family history of breast cancer. Comparison is made to exams dated: 04/11/2018 mammogram and 05/06/2014 mammogram - [facility]. The tissue of both breasts is heterogeneously dense. This may lower the sensitivity of mammography. Current study was also evaluated with a Computer Aided Detection (CAD) system. No significant masses, calcifications, or other findings are seen in either breast. IMPRESSION: NEGATIVE There is no mammographic evidence of malignancy. A 1 year screening mammogram is recommended. This exam was interpreted at Station ID: [id number]. NOTE: For mammograms, a report in lay terms will be sent to the patient. Approximately 15% of breast malignancies will not be visualized mammographically. In the management of a palpable breast mass, a negative mammogram must not discourage biopsy of a clinically suspicious lesion. Electronically Signed By: Johan Deras M.D. aty/:09/03/2019 08:30:06 letter sent: Normal Exam ACR BI-RADS Category 1: Negative [id number]
== END ==
PROVIDERS: Family Provider Nurse Practitioner; PCP Nurse Practitioner; Referring Provider Nurse Practitioner; Visit Provider Nurse Practitioner
DX: Z12.31 Encounter for screening mammogram for malignant neoplasm of breast (principal); Z80.3 Family history of malignant neoplasm of breast
CPT/HCPCS: 77063; 77067

== ENCOUNTER → 2019-09-23 15:58 | Outpatient (CLI) | payer MEDICARE, MEDICAID, SELFPAY ==
--- NOTE | 2019-09-23 16:00 | DI.MRI.S_ITS ---
PROCEDURE: MR CERVICAL SPINE WO CON INDICATIONS: parastheisa bilateral arms, right leg and groin TECHNIQUE: Noncontrast sagittal T1 spin echo and T2 fast spin echo, sagittal STIR, foraminal oblique sagittal T2 fast spin echo, and axial gradient echo or T2 fast spin echo through the cervical spine. COMPARISON: [facility], , C-SPINE WITHOUT CONTRAST, 09/28/2015, 17:28. FINDINGS: Image quality: Excellent. Alignment and Curvature: There is loss of normal cervical lordosis. There is mild grade 1 retrolisthesis of C3 on C4 and C4 on C5. Bone Marrow: Marrow demonstrates normal overall signal. Anterior fusion of C5-C7 has been performed with an anterior plate and screws. There is mild reactive signal within the endplates adjacent to the C4-C5 and C7-T1 intervertebral discs. Spinal Cord: Visualized spinal cord has normal size and signal. No cerebellar tonsillar herniation. Posterior fossa decompression. Paraspinous Soft Tissues: No paravertebral masses. Prevertebral soft tissues are normal in thickness. C2-C3: Mild disc desiccation. Mild diffuse disc bulge. Minimal canal stenosis. No foraminal stenosis. No change. C3-C4: Moderate disc desiccation. Mild diffuse disc bulge. Mild facet and uncovertebral hypertrophy bilaterally. Mild canal stenosis is unchanged. There is increased, moderate right and mild left foraminal stenosis. C4-C5: Moderate disc desiccation. Mild diffuse disc bulge. With superimposed new left paracentral protrusion. Mild facet and uncovertebral hypertrophy bilaterally. There is increased, moderate to severe canal stenosis. New minimal left anterior cord flattening. No change in mild bilateral foraminal stenosis. C5-C6: Status post fusion. Mild facet and uncovertebral hypertrophy bilaterally. No canal stenosis. Moderate right and mild left foraminal stenosis. No change. C6-C7: Status post fusion. Mild bilateral facet and uncovertebral hypertrophy. No canal stenosis. Mild bilateral foraminal stenosis. No change. C7-T1: Moderate disc height loss and desiccation. Mild diffuse disc bulge. Mild facet and uncovertebral hypertrophy bilaterally. Mild canal stenosis. Increased, mild bilateral foraminal stenosis. IMPRESSION: 1. Postsurgical sequelae within the lower cervical spine with no evidence of significant canal stenosis at the fused levels. 2. Multilevel degenerative disc and facet disease, as well as uncovertebral hypertrophy. 3. Multilevel canal stenosis, worst at C4-C5, where there is new minimal associated left anterior cord flattening. 4. Multilevel foraminal stenosis, worst at C3-C4 and C5-C6, where there are moderate foraminal stenoses as described above. 5. Postsurgical sequelae. Dictated by: Maryana Hogan M.D. on 09/23/2019 at 16:29 Approved by: Maryana Hogan M.D. on 09/23/2019 at 16:36
== END ==
PROVIDERS: Family Provider Nurse Practitioner; PCP Nurse Practitioner; Referring Provider Nurse Practitioner; Visit Provider Nurse Practitioner
DX: M50.31 Other cervical disc degeneration, high cervical region (principal); M48.02 Spinal stenosis, cervical region; R20.2 Paresthesia of skin; M79.601 Pain in right arm; M79.602 Pain in left arm; Q07.00 Arnold-Chiari syndrome without spina bifida or hydrocephalus; Z98.1 Arthrodesis status
CPT/HCPCS: 72141

== ENCOUNTER → 2019-09-30 09:20 | Outpatient (CLI) | payer MEDICARE, MEDICAID, SELFPAY ==
--- NOTE | 2019-09-30 09:27 | DI.US.S_ITS ---
PROCEDURE: US PELVIC COMPLETE INDICATIONS: URINARY INCONTINENCE, UMBILICAL PAIN TECHNIQUE: Real-time scanning was performed of the pelvic organs, with image documentation. Additional endovaginal scanning was necessary due to incomplete visualization of the adnexal and endometrial structures by transabdominal scanning. COMPARISON: [facility], US, PELVIC COMPLETE, 03/27/2015, 11:29. [facility], US, PELVIC COMPLETE, 12/26/2014, 8:53. FINDINGS: Transabdominal scanning: Limited scanning through the kidneys shows no hydronephrosis. No pathologic free abdominal or pelvic fluid. Endovaginal scanning: Uterus: Uterus is normal in size at 3.5 x 4.5 x 5.6 cm, retroverted. The endometrium measures 4.0 mm in combined thickness. Centrally positioned IUD. Ovaries: The ovaries bilaterally are normal in size measuring up to 2.4 x 1.9 x 2.3 cm on the right and 4.1 x 2.5 x 3.6 cm on the left IMPRESSION: Normal positioning of IUD, no myometrial abnormality seen, ovaries appear normal. Source of pain is not seen. Dictated by: Dawood Knutson M.D. on 09/30/2019 at 10:31 Approved by: Dawood Knutson M.D. on 09/30/2019 at 10:32
== END ==
PROVIDERS: Family Provider Nurse Practitioner; PCP Nurse Practitioner; Referring Provider Obstetrics & Gynecology; Visit Provider Obstetrics & Gynecology
DX: R10.33 Periumbilical pain (principal); R32 Unspecified urinary incontinence; Z97.5 Presence of (intrauterine) contraceptive device
CPT/HCPCS: 76830; 76856

== ENCOUNTER 2019-09-30 10:58 | Emergency (ER) | payer MEDICARE, MEDICAID, SELFPAY ==
[2019-09-30 11:00] VITALS: BP 99/59; PULSE 48; RESP 18; TEMP 36.6; O2SAT 99
--- NOTE | 2019-09-30 11:08 | DI.RAD.S_ITS ---
PROCEDURE: XR CHEST 1V INDICATIONS: syncope TECHNIQUE: One view of the chest was acquired. COMPARISON: None. FINDINGS: Surgical changes and devices: Postoperative changes of the lower cervical spine are not adequately characterized. Lungs and pleura: Lungs are clear. No pleural effusions or pneumothorax. Mediastinum: Mediastinal contours appear normal. The heart appears prominent in size, which may be exaggerated by portable technique. Bones and chest wall: No suspicious bony lesions. Overlying soft tissues appear unremarkable. IMPRESSION: Borderline cardiomegaly without overt heart failure. Dictated by: Joe Dobbins M.D. on 09/30/2019 at 10:54 Approved by: Joe Dobbins M.D. on 09/30/2019 at 10:56
[2019-09-30 11:57] VITALS: BP 112/69; BP 117/79; BP 118/73; PULSE 54; PULSE 56
--- NOTE | 2019-09-30 12:08 | DI.CT.S_ITS ---
PROCEDURE: CT HEAD/BRAIN WO CON INDICATIONS: syncope TECHNIQUE: Noncontrast 4.5 mm thick angled axial sections acquired from the foramen magnum to the vertex, with coronal and sagittal reformats. For radiation dose reduction, the following was used: automated exposure control, adjustment of mA and/or kV according to patient size. COMPARISON: [facility], MR, BRAIN W&WO CONTRAST, 01/01/2015, 18:08. [facility], CT, CT HEAD/BRAIN WO CON, 11/16/2018, 13:26. FINDINGS: Image quality: Excellent. CSF spaces: Basal cisterns are patent. No extra-axial fluid collections. Ventricles are normal in size and shape. Brain: No midline shift. No intracranial masses or hemorrhage. Kwon-white matter interface is normal. 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 Skull and face: Suboccipital craniectomy changes noted. Calvarium and visualized facial bones are intact, without suspicious lesions. Sinuses: Visualized sinuses and mastoids are clear. IMPRESSION: No acute abnormality is seen to explain the patient's presenting history of syncope. 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 Dictated by: Drew Osborne M.D. on 09/30/2019 at 11:32 Approved by: Drew Osborne M.D. on 09/30/2019 at 11:34
[2019-09-30 12:09] LABS: Add Manual Diff / Slide Review NO; Basophils Absolute Auto 100 /uL (0-100); Basophils Percent Auto 0.8 % (0-2); Eosinophils Absolute Auto 400 /uL (0-450); Eosinophils Percent Auto 3.7 % (2-4); Hematocrit 40.3 % (36-46); Lymphocytes Absolute Auto 1300 /uL (1100-4500); Lymphocytes Percent Auto 13.4 % (25-40); Mean Corpuscular HGB Conc 34.8 % (30-36); Mean Corpuscular Hemoglobin 31.8 PG (26-34); Mean Corpuscular Volume 91.3 fL (80-100); Monocytes Absolute Auto 700 /uL (0-900); Monocytes Percent Auto 7.2 % (3-14); Neutrophils Absolute Auto 7300 /uL (1500-7000); Neutrophils Percent Auto 74.9 % (50-75); Platelet Count 277 X10^3/uL (150-400); Red Blood Cell Count 4.41 X10^6/uL (4.0-5.2); Red Cell Distribution Width 13.2 % (11.6-14.8); White Blood Cell Count 9.7 X10^3/uL (4.5-11.0)
[2019-09-30 12:27] LABS: Alanine Aminotransferase 107 IU/L (<35); Albumin 4.7 g/dL (3.5-5.0); Albumin Globulin Ratio 1.6 (1.0-2.8); Alkaline Phosphatase 72 U/L (38-126); Aspartate Aminotransferase 68 IU/L (14-36); BUN Creatinine Ratio 17.6 (6-22); Bilirubin Total 0.5 mg/dL (0.2-1.3); Blood Urea Nitrogen 16 mg/dL (7-17); Calcium 9.1 mg/dL (8.4-10.2); Carbon Dioxide 22 mmol/L (22-32); Chloride 109 mmol/L (98-107); Creatine Kinase 71 U/L (30-135); Estimated Glomerular Filt Rate > 60.0 mL/min (>60); Globulin 2.9 g/dL (1.7-4.1); Glucose 98 mg/dL (70-100); HEMOLYSIS < 15 (0-50); Magnesium 2.6 mg/dL (1.6-2.3); Potassium 4.6 mmol/L (3.4-5.1); Sodium 138 mmol/L (137-145); Total Protein 7.6 g/dL (6.3-8.2)
--- NOTE | 2019-09-30 12:38 | ED.SYNCOPE ---
HPI - Syncope <VICTORIANO Valera - Last Filed: 09/30/19 23:52> General Chief Complaint: Syncope Stated Complaint: light headed, passed out in office Time Seen by Provider: 09/30/19 11:07 Source: patient, family and other Mode of arrival: Wheelchair Limitations: no limitations History of Present Illness HPI narrative: This is a 44 year female, nonsmoker, who has multiple chronic conditions such as Arnold-Chiari malformation and decompression, depression, anxiety, schizoaffective disorder, hypothyroidism presents to ED with a brief syncopal episode for about a minute after she had previous IUD Mirena removal and had insertion done by Dr. Mcgovern at the clinic today. Patient's spouse reports she got out of the bed when about to leave the [employer] office and she had a syncopal episode that was caught by . She reports nausea and headache with vision change but these are no new symptoms and she has it all the time due to her Chiari malformatin history and she also has some balance and cognitive problems due to this. Patient denies chest pain, breathing difficulty, dizziness, significant painbut had some nausea as associated symptoms prior to syncopal episode. She sees a neurologist specialist and [facility] office. She reports had recent MRI test done about a week ago at [facility]. Patient reports mild abdominal pain and had pelvic ultrasound done as well. She reports low back pain today. She reports has been spotting vaginally for last 3 weeks without heavy bleeding. Patient denies fever, chills. Related Data Home Medications Medication Instructions Recorded Confirmed baclofen 10 mg tablet 10 mg PO TID PRN 02/11/19 09/30/19 propranolol 60 mg tablet 60 mg PO .morning tab 06/27/19 09/30/19 pregabalin 50 mg capsule 50 mg PO BID 08/22/19 09/30/19 Previous Rx's Medication Instructions Recorded ropinirole 0.25 mg tablet 0.25 mg PO BEDTIME #30 tab 07/15/19 quetiapine 200 mg tablet 200 mg PO BEDTIME #30 tab 07/24/19 quetiapine 25 mg tablet 25 mg PO BID PRN #60 tab 07/24/19 lamotrigine 100 mg tablet 200 mg PO DAILY #60 tab 07/25/19 promethazine 12.5 mg tablet 12.5 mg PO TID #20 tab 08/07/19 suvorexant 15 mg tablet 15 mg PO BEDTIME #30 tab 09/04/19 ibuprofen 600 mg tablet 600 mg PO .COMPLEX PRN #30 tab 09/17/19 lithium carbonate 300 mg capsule 600 mg PO BEDTIME #60 cap 09/24/19 topiramate 25 mg tablet 25 mg PO BID #60 tab 09/25/19 Allergies Allergy/AdvReac Type Severity Reaction Status Date / Time No Known Drug Allergies Allergy Verified 09/30/19 11:12 Review of Systems <VICTORIANO Valera - Last Filed: 09/30/19 23:52> Review of Systems Narrative: General: Denies fever, chills, fatigue, malaise, sweats. HEENT: Denies sinus pain, ear pain, sore throat, difficulty swallowing, dizziness. Respiratory: Denies dyspnea, cough, wheezing, hemoptysis, sputum. Cardiovascular: Denies chest pain, palpitations, orthopnea, edema. Gastrointestinal: See HPI : Denies dysuria, frequency, incontinence, hematuria, urinary retention. Musculoskeletal: Denies weakness, joint pain or bony pain. Skin: Denies rash, skin lesions, or other. Neurologic: See HPI Psychiatric: No concerning psychosocial issues. 12-point review of systems is negative except for those stated above. Patient History <VICTORIANO Valera - Last Filed: 09/30/19 23:52> Medical History Arnold-Chiari malformation (Chronic) History of anorexia nervosa (Acute) Paresthesia (Acute) Paresthesia and pain of both upper extremities (Acute) Paresthesia of right leg (Acute) Urinary Incontinence (Acute) Weight gain finding (Acute) Surgical History History of spinal fusion Status post delivery Status post laminectomy Family History Grandfather Cancer Grandmother Cancer Mother Age: 70 Mental health problem Grandfather Cancer Grandmother Cancer Social History Smoking Status: Former smoker Smoking Status: Former smoker alcohol intake frequency: other Substance Use Type: marijuana Exam <Gary VICTORIANO Bellamy - Last Filed: 09/30/19 23:52> Narrative Exam Narrative: GEN: Alert, oriented x 3, well appearing and nourished, and in no acute distress. Head: Normal cephalic, atraumatic. No scalp or temporal tenderness, palpable mass or rash. EYES: Pupils are equal, round, and reactive to light and accommodation. Extraocular muscles are intact bilaterally. There is no subconjunctival hemorrhage, exudate and sclera non-icteric. ENT: Bilateral auditory canals and tympanic membranes clear. Hearing grossly intact. Nose without bleeding, purulent discharge, septal hematoma or deviation. Turbinate without erythema or swelling. Facial sinuses nontender to palpate. Mucous membrane moist, no mucosal lesion. Throat without erythema, tonsillar hypertrophy or exudate. Uvula in midline, airway patent. Neck: Trachea in midline. No JVD, non-tender without lymphadenopathy. No masses or thyroid megaly. Supple, non-tender and no meningeal signs. CARDIAC: Normal regular rate and rhythm without murmurs, gallops, or rubs. No chest wall tenderness. No peripheral edema, cyanosis or pallor. Capillary refill is less than 2 seconds. No carotid bruits. RESPIRATORY: Lungs are cleat to auscultate bilaterally. No cough, wheezes, rales, or rhonchi. No stridor, respiratory distress, increase work of breathing, or accessary muscle used. ABD: Abdomen soft, mild tenderness to palpate in bilateral lower quadrant without distention. No guarding or rebound tenderness to palpate. Bowel sounds are normal in all 4 quadrants. There is no palpable masses or organomegaly. EXT: Full painless ROM of all extremities with no loss of sensation, strength, effusion or edema. SKIN: Warm, dry, normal color for patient. No erythema, lesions or rash. BACK: Nontender without deformity or crepitance. No flank tenderness. NEUROLOGICAL: Alert and oriented to place, time and person. No facial droops, dysphasia. CN II-XII intact. Strength and sensation symmetric and intact throughout. Cerebellar testing normal. PSYCHIATRIC: Good judgement and reason, without hallucinations, abnormal affect or abnormal behaviors during the examination. Patient is not suicidal. Initial Vital Signs Initial Vital Signs: Vital Signs Temperature 97.8 F 09/30/19 11:00 Pulse Rate 48 L 09/30/19 11:00 Respiratory Rate 18 09/30/19 11:00 Blood Pressure 99/59 L 09/30/19 11:00 Pulse Oximetry 99 09/30/19 11:00 <Corina Barrios DO - Last Filed: 10/01/19 11:17> Initial Vital Signs Initial Vital Signs: Vital Signs Temperature 97.8 F 09/30/19 11:00 Pulse Rate 48 L 09/30/19 11:00 Respiratory Rate 18 09/30/19 11:00 Blood Pressure 99/59 L 09/30/19 11:00 Pulse Oximetry 99 09/30/19 11:00 Scores <Gary MartinezangRyVICTORIANO Roe - Last Filed: 09/30/19 23:52> GCS Tristan coma scale eye opening: Spontaneous Stowe coma scale verbal response: Orientated Stowe coma scale motor response: Obey commands Tristan coma scale total score: 15 NIH Stroke Scale Level of Conciousness: Alert, keenly responsive Ask month/age: Answers both questions correctly. Open/close eyes, close hand: Performs both tasks correctly Best gaze horizontal: Normal Visual rooney: No visual loss Facial palsy: Normal symetrical movement Left arm drift: No drift for full 10 sec Right arm drift: No drift for full 10 sec Left leg drift: No drift for full 10 sec Right leg drift: No drift for full 10 sec Limb ataxia: Absent Sensory on face/arms/legs: Normal, no sensory loss Best language: No aphasia, normal Dysarthria: Normal Extinction or inattention: No abnormality Total NIH Stroke scale score: 0 Course <VICTORIANO Valera - Last Filed: 09/30/19 23:52> Orders Ordered: Discontinued Medications Diphenhydramine HCl (Benadryl) 25 mg IV NOW ONE Stop: 09/30/19 13:10 Last Admin: 09/30/19 13:30 Dose: 25 mg Documented by: RMARTIN Sodium Chloride (Normal Saline 0.9%) 500 mls @ 1,000 mls/hr IV BOLUS ONE Stop: 09/30/19 13:38 Last Infusion: 09/30/19 14:13 Dose: 0 mls/hr Documented by: Admin: 09/30/19 13:27 Dose: 1,000 mls/hr Documented by: RMARTIN Ketorolac Tromethamine (Toradol) 15 mg IV NOW ONE Stop: 09/30/19 13:10 Last Admin: 09/30/19 13:27 Dose: 15 mg Documented by: YARED Metoclopramide HCl (Reglan) 10 mg IV NOW ONE Stop: 09/30/19 13:10 Last Admin: 09/30/19 13:29 Dose: 10 mg Documented by: YARED Vital Signs Vital signs: Vital Signs - 8 hr 09/30/19 11:00 09/30/19 11:57 Temperature 97.8 F Pulse Rate 48 L Pulse Rate [Orthostatic Lying] 56 L Pulse Rate [Orthostatic Sitting] 54 L Respiratory Rate 18 Blood Pressure 99/59 L Blood Pressure [Orthostatic Lying] 112/69 Blood Pressure [Orthostatic Sitting] 118/73 Blood Pressure [Orthostatic Standing] 117/79 Pulse Oximetry 99 <Corina Barrios DO - Last Filed: 10/01/19 11:17> Orders Ordered: Discontinued Medications Diphenhydramine HCl (Benadryl) 25 mg IV NOW ONE Stop: 09/30/19 13:10 Last Admin: 09/30/19 13:30 Dose: 25 mg Documented by: YARED Sodium Chloride (Normal Saline 0.9%) 500 mls @ 1,000 mls/hr IV BOLUS ONE Stop: 09/30/19 13:38 Last Infusion: 09/30/19 14:13 Dose: 0 mls/hr Documented by: Admin: 09/30/19 13:27 Dose: 1,000 mls/hr Documented by: YARED Ketorolac Tromethamine (Toradol) 15 mg IV NOW ONE Stop: 09/30/19 13:10 Last Admin: 09/30/19 13:27 Dose: 15 mg Documented by: YARED Metoclopramide HCl (Reglan) 10 mg IV NOW ONE Stop: 09/30/19 13:10 Last Admin: 09/30/19 13:29 Dose: 10 mg Documented by: YARED Vital Signs Vital signs: Vital Signs - 8 hr 09/30/19 11:00 09/30/19 11:57 Temperature 97.8 F Pulse Rate 48 L Pulse Rate [Orthostatic Lying] 56 L Pulse Rate [Orthostatic Sitting] 54 L Respiratory Rate 18 Blood Pressure 99/59 L Blood Pressure [Orthostatic Lying] 112/69 Blood Pressure [Orthostatic Sitting] 118/73 Blood Pressure [Orthostatic Standing] 117/79 Pulse Oximetry 99 MDM - Syncope <GLENNA ValeraP - Last Filed: 09/30/19 23:52> Differential Diagnosis Differential diagnosis: Likely syncope due to orthostatic hypotension, vasovagal syncope and other (Arrhythmia, electrolyte imbalance) Medical Records Attestation: I reviewed the patient's medical records. Lab Data Attestation: I reviewed the patient's lab results. Result diagrams: 09/30/19 12:01 09/30/19 12:01 Labs: Lab Results 09/30/19 09/30/19 Range/Units 12: 12:01 WBC 9.7 (4.5-11.0) X10^3/uL RBC 4.41 (4.0-5.2) X10^6/uL Hgb 14.0 (12.0-16.0) g/dL Hct 40.3 (36-46) % MCV 91.3 (80-100) fL MCH 31.8 (26-34) PG MCHC 34.8 (30-36) % RDW 13.2 (11.6-14.8) % Plt Count 277 (150-400) X10^3/uL Neut % (Auto) 74.9 (50-75) % Lymph % (Auto) 13.4 L (25-40) % Pennington % (Auto) 7.2 (3-14) % Eos % (Auto) 3.7 (2-4) % Baso % (Auto) 0.8 (0-2) % Neut # (Auto) 7300 H (7982-8473) /uL Lymph # (Auto) 1300 (0511-8441) /uL Pennington # (Auto) 700 (0-900) /uL Eos # (Auto) 400 (0-450) /uL Baso # (Auto) 100 (0-100) /uL Sodium 138 (137-145) mmol/L Potassium 4.6 (3.4-5.1) mmol/L Chloride 109 H (98-107) mmol/L Carbon Dioxide 22 (22-32) mmol/L BUN 16 (7-17) mg/dL Creatinine 0.91 (0.52-1.04) mg/dL Estimated GFR > 60.0 (>60) mL/min BUN/Creatinine Ratio 17.6 (6-22) Glucose 98 (70-100) mg/dL Calcium 9.1 (8.4-10.2) mg/dL Magnesium 2.6 H (1.6-2.3) mg/dL Total Bilirubin 0.5 (0.2-1.3) mg/dL AST 68 H (14-36) IU/L ALT 107 H (<35) IU/L Alkaline Phosphatase 72 (38-126) U/L Total Creatine Kinase 71 (30-135) U/L CK-MB (CK-2) TNP CK-MB (CK-2) Rel Index TNP Troponin I < 0.012 (0.01-0.034) ng/mL Total Protein 7.6 (6.3-8.2) g/dL Albumin 4.7 (3.5-5.0) g/dL Globulin 2.9 (1.7-4.1) g/dL Albumin/Globulin Ratio 1.6 (1.0-2.8) Point of Care Testing Glucose POC [address] scan - head: Radiologist's Impression: [place] [address] CT Scan Report Signed Patient: Radhika Blackwell [facility]#: [id number] : 1975Acct:[id number] Age/Sex: 44 / FDate of Service: 09/30/19 Loc: ED Accession Number: [id number] Procedure: CT head/brain wo con Ordering Provider: Gary Bellamy PROCEDURE: CT HEAD/BRAIN WO CON INDICATIONS: syncope TECHNIQUE: Noncontrast 4.5 mm thick angled axial sections acquired from the foramen magnum to the vertex, with coronal and sagittal reformats. For radiation dose reduction, the following was used: automated exposure control, adjustment of mA and/or kV according to patient size. COMPARISON: [facility], MR, BRAIN W&WO CONTRAST, 01/01/2015, 18:08. [facility], CT, CT HEAD/BRAIN WO CON, 11/16/2018, 13:26. FINDINGS: Image quality: Excellent. CSF spaces: Basal cisterns are patent. No extra-axial fluid collections. Ventricles are normal in size and shape. Brain: No midline shift. No intracranial masses or hemorrhage. Kwon-white matter interface is normal. 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 Skull and face: Suboccipital craniectomy changes noted. Calvarium and visualized facial bones are intact, without suspicious lesions. Sinuses: Visualized sinuses and mastoids are clear. IMPRESSION: No acute abnormality is seen to explain the patient's presenting history of syncope. 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 Dictated by: Drew Osborne M.D. on 09/30/2019 at 11:32 Approved by: Drew Osborne M.D. on 09/30/2019 at 11:34 Chest x-ray: Radiologist's Impression: [address] [address] XRay Report Signed Patient: Radhika Blackwell [facility]#: [id number] : 1975Acct:[id number] Age/Sex: 44 / FDate of Service: 09/30/19 Loc: ED Accession Number: [id number] Procedure: XR chest 1V Ordering Provider: Gary Bellamy PROCEDURE: XR CHEST 1V INDICATIONS: syncope TECHNIQUE: One view of the chest was acquired. COMPARISON: None. FINDINGS: Surgical changes and devices: Postoperative changes of the lower cervical spine are not adequately characterized. Lungs and pleura: Lungs are clear. No pleural effusions or pneumothorax. Mediastinum: Mediastinal contours appear normal. The heart appears prominent in size, which may be exaggerated by portable technique. Bones and chest wall: No suspicious bony lesions. Overlying soft tissues appear unremarkable. IMPRESSION: Borderline cardiomegaly without overt heart failure. Dictated by: Joe Dobbins M.D. on 09/30/2019 at 10:54 Approved by: Joe Dobbins M.D. on 09/30/2019 at 10:56 ECG Data Attestation: I personally reviewed and interpreted this ECG as follows: Prior ECG tracings: available for review Interpretation: Sinus bradycardia rate of 46. Normal Funk. NC interval 160, QRS duration 90, QT/QTc 496/[address] changes Previous EKGs sinus rhythm MDM Narrative Medical decision making narrative: This is a 44 year old female who presented to ED with one minute duration of syncopal episode after [facility]. Patient denies chest pain, breathing difficulty, dizziness but some nausea prior to syncopal episode. The patient has chiari malformation history with decompression and anxiety and depression as pertinent history. Patient's neuro exam was unremarkable. NIH score was 0. EKG was normal sinus bradycardia rate in 40s with hypotension SBP in low 90's. Continuous director of cardiac cath lab shows rate in 50s and 60s bpm. Given patient's history of chairi malformation and depression history, Head CT was obtained and showed unremarkable findings without acute abnormalty except Chi Andrzej 1 malformation with suboccipital craniectomy. CXR shows clear lungs, possibly borderline cardiomegaly w/o overt heart failure. Lungs sounds clear to auscultate bilaterally without lower extremity edema. Patient is afebrile. Lab tests were unremarkable. Within Normal H&H of 14.0/40.3. Serum glucose of 109. Negative troponin. Mildly elevated AST and ALT of 68 and normal 7. Normal total bilirubin. Normal coag test results. Ultrasound that was ordered by Dr. mcgovern indicates normal positioning of IUD with normal ovaries and no source of pain was identified. Abdomen exam was unremarkable. Abdomen was soft and nondistended with mild tender to palpate in bilateral lower abdomen. MRI test was done on C spine on 09/23/19 due to paresthesia and bilateral arms and right leg and groin region that was arranged by her primary care for provider JANNA Abad and shows moderate disc desiccation in multileveal disc with canal stenosis in C4-C5 and foraminal stenosis in C3 through C6 and it was not done in brain as the patient describe. Orthostatic BP and HR obtained. NO significant changes in blood pressure but heart rate had increased about 10 points from sitting to standing with symptoms as lightheadedness and balance difficulty. The patient was medicated with normal saline bolus with Toradol 15mg IV, Benadryl 25mg and Reglan 10 mg for nausea, headaches and abdominal pain which improved her symptoms. She reports had not eaten or drank since last night. The patient was able to ambulate in stable gait before discharged to home. It is likely patient had orthostatic changes vs. Vasovagal symptoms after the IUD procedure. Patient's heart rate had improved to 60s with normotensive before leaving ED. Patient advised to follow-up with primary care physician and return precautions were discussed with patient and patient verbalized understanding and in agreement with treatment plan. <Corina Denis, DO - Last Filed: 10/01/19 11:17> Lab Data Labs: Lab Results 09/30/19 09/30/19 Range/Units 12:01 12:01 WBC 9.7 (4.5-11.0) X10^3/uL RBC 4.41 (4.0-5.2) X10^6/uL Hgb 14.0 (12.0-16.0) g/dL Hct 40.3 (36-46) % MCV 91.3 (80-100) fL MCH 31.8 (26-34) PG MCHC 34.8 (30-36) % RDW 13.2 (11.6-14.8) % Plt Count 277 (150-400) X10^3/uL Neut % (Auto) 74.9 (50-75) % Lymph % (Auto) 13.4 L (25-40) % Pennington % (Auto) 7.2 (3-14) % Eos % (Auto) 3.7 (2-4) % Baso % (Auto) 0.8 (0-2) % Neut # (Auto) 7300 H (6031-3054) /uL Lymph # (Auto) 1300 (1945-4761) /uL Pennington # (Auto) 700 (0-900) /uL Eos # (Auto) 400 (0-450) /uL Baso # (Auto) 100 (0-100) /uL Sodium 138 (137-145) mmol/L Potassium 4.6 (3.4-5.1) mmol/L Chloride 109 H (98-107) mmol/L Carbon Dioxide 22 (22-32) mmol/L BUN 16 (7-17) mg/dL Creatinine 0.91 (0.52-1.04) mg/dL Estimated GFR > 60.0 (>60) mL/min BUN/Creatinine Ratio 17.6 (6-22) Glucose 98 (70-100) mg/dL Calcium 9.1 (8.4-10.2) mg/dL Magnesium 2.6 H (1.6-2.3) mg/dL Total Bilirubin 0.5 (0.2-1.3) mg/dL AST 68 H (14-36) IU/L ALT 107 H (<35) IU/L Alkaline Phosphatase 72 (38-126) U/L Total Creatine Kinase 71 (30-135) U/L CK-MB (CK-2) TNP CK-MB (CK-2) Rel Index TNP Troponin I < 0.012 (0.01-0.034) ng/mL Total Protein 7.6 (6.3-8.2) g/dL Albumin 4.7 (3.5-5.0) g/dL Globulin 2.9 (1.7-4.1) g/dL Albumin/Globulin Ratio 1.6 (1.0-2.8) Point of Care Testing Glucose POC 92 Discharge Plan Departure Patient Disposition: Home Clinical Impression: Syncope Qualifiers: Syncope type: unspecified Qualified Code(s): R55 - Syncope and collapse Discharge Date/Time: 09/30/19 14:22 Instructions: DI for Syncope in Adults (Fainting) Activity Restrictions/Additional Instructions: You have been diagnosed with [syncopal episode after IUD insertion. It is not clear the etiology of syncopal episode. You may had vasovagal symptoms or mildly dehydrated. EKG, head CT, blood tests were unremarkable except mildly elevated partial liver function test. AST of 88 and ALT of 107. ]. What to do: *Take your medications as directed. You were provided with IV fluid, Toradol, Reg[place] and Benadryl for nausea and headache. Your symptoms improved mildly. *Follow up with your primary care provider in 2-3 days, call for an appointment. Let them know you were seen in the ED and that we asked you to be seen in follow up. *Return to ED if you have any new, worsening, or concerning symptoms, such as [chest pain, breathing difficulty, unable to tolerate fluids, fever, worsening pain or recurring fainting episodes or any acute concerns]. Prescriptions: No Action baclofen 10 mg tablet 10 mg PO TID PRN (Reason: muscle spasm) RF: 0 lamotrigine 100 mg tablet 200 mg PO DAILY Qty: 60 RF: 1 pregabalin [Lyrica] 50 mg capsule 50 mg PO BID RF: 0 lithium carbonate 300 mg capsule 600 mg PO BEDTIME Qty: 60 RF: 1 propranolol 60 mg tablet 60 mg PO .morning RF: 0 ropinirole 0.25 mg tablet 0.25 mg PO BEDTIME Qty: 30 RF: 2 quetiapine 25 mg tablet 25 mg PO BID PRN (Reason: anxiety) Qty: 60 RF: 1 Hold Instructions: order change quetiapine 200 mg tablet 200 mg PO BEDTIME Qty: 30 RF: 1 promethazine 12.5 mg tablet 12.5 mg PO TID Qty: 20 RF: 0 suvorexant 15 mg tablet 15 mg PO BEDTIME Qty: 30 RF: 0 ibuprofen 600 mg tablet 600 mg PO .COMPLEX PRN (Reason: pain) Qty: 30 RF: 0 topiramate 25 mg tablet 25 mg PO BID Qty: 60 RF: 3 Referrals: Cleo Abad ARNP [Primary Care Provider] - CoeymansVinnie MD [Non-Staff] - <Corina Barrios DO - Last Filed: 10/01/19 11:17> Cosign ED Attending Cosyaaature Attestation: I was immediately available in the department for consultation. Documentation has been reviewed. I agree with assessment and plan.
[2019-09-30 12:39] LABS: Troponin I < 0.012 ng/mL (0.01-0.034)
[2019-09-30] MEDS: SODIUM CHLORIDE 0.9% 500 ML 1000 ML IV (13:27)
[2019-09-30] MEDS: KETOROLAC 60 MG/2 ML VIAL 15 MG IV (13:27)
[2019-09-30] MEDS: METOCLOPRAMIDE 10 MG/2 ML INJ IV (13:29)
[2019-09-30] MEDS: diphenhydrAMINE 50 MG/ML VIAL 25 MG IV (13:30)
[2019-09-30 14:07] VITALS: BP 105/65; PULSE 69; RESP 21; O2SAT 99
== END 2019-09-30 14:22 | disposition home or self-care (01) ==
PROVIDERS: Emergency Provider Nurse Practitioner Family; Family Provider Nurse Practitioner; PCP Nurse Practitioner
DX: R55 Syncope and collapse (principal); R11.0 Nausea; R51 Headache; H53.9 Unspecified visual disturbance; Z97.5 Presence of (intrauterine) contraceptive device; R10.33 Periumbilical pain; R32 Unspecified urinary incontinence
CPT/HCPCS: 36415; 70450; 71045; 76830; 76856; 80053; 82550; 82962; 83735; 84484; 85025; 93005; 96361; 96374; 96375; 99284; J1200; J1885; J2765

== ENCOUNTER → 2019-10-01 15:42 | Outpatient (CLI) | payer MEDICARE, MEDICAID, SELFPAY ==
[2019-10-01 20:10] LABS: Bacteria Urine None Seen
[2019-10-01 20:19] LABS: Appearance Urine UA CLEAR; Bilirubin Urine UA NEGATIVE (NEGATIVE); Color Urine UA YELLOW; Glucose Urine UA NEGATIVE (Negative); Ketones Urine UA NEGATIVE (NEGATIVE); Leukocyte Esterase Urine UA NEGATIVE (NEGATIVE); Nitrite Urine UA NEGATIVE (Negative); Occult Blood Urine UA 2+ (Negative); Protein Urine UA NEGATIVE (Negative); Urobilinogen Urine UA 0.2 E.U./dL (0.2)
[2019-10-01 20:30] LABS: pH Urine UA 7.5 (4.5-8.0)
[2019-10-01 20:31] LABS: Culture Indicated Urine Cult Not Indicated; RBC Urine 1-5/HPF (0-5/HPF); Squamous Epithelial Cell Urine 0-1 /HPF (0-5/HPF); WBC Urine 0-1/HPF (0-5/HPF)
[2019-10-02 19:22] LABS: COVID19 Sendout Not Detected (Not Detect)
== END ==
PROVIDERS: Physician Assistant; Family Provider Nurse Practitioner; PCP Nurse Practitioner; Visit Provider Nurse Practitioner
DX: R31.9 Hematuria, unspecified (principal); R50.9 Fever, unspecified; Z11.59 Encounter for screening for other viral diseases
CPT/HCPCS: 81001; 87635

== ENCOUNTER 2019-10-02 16:32 | Emergency (ER) | payer MEDICARE, MEDICAID, SELFPAY ==
[2019-10-02 16:39] VITALS: BP 158/87; PULSE 58; RESP 13; TEMP 37.1; O2SAT 99; BMI 33.2
[2019-10-02 20:00] VITALS: BP 148/88; PULSE 69; RESP 16; O2SAT 100
[2019-10-02 21:31] VITALS: BP 121/58; PULSE 51; RESP 17; O2SAT 100
[2019-10-02 22:20] LABS: Add Manual Diff / Slide Review NO; Basophils Absolute Auto 100 /uL (0-100); Basophils Percent Auto 0.8 % (0-2); Eosinophils Absolute Auto 500 /uL (0-450); Eosinophils Percent Auto 4.8 % (2-4); Hematocrit 40.1 % (36-46); Hemoglobin 13.9 g/dL (12.0-16.0); Lymphocytes Absolute Auto 2200 /uL (1100-4500); Lymphocytes Percent Auto 19.7 % (25-40); Mean Corpuscular HGB Conc 34.7 % (30-36); Mean Corpuscular Hemoglobin 31.7 PG (26-34); Mean Corpuscular Volume 91.3 fL (80-100); Monocytes Absolute Auto 700 /uL (0-900); Monocytes Percent Auto 6.8 % (3-14); Neutrophils Absolute Auto 7500 /uL (1500-7000); Neutrophils Percent Auto 67.9 % (50-75); Platelet Count 283 X10^3/uL (150-400); Red Blood Cell Count 4.39 X10^6/uL (4.0-5.2); Red Cell Distribution Width 13.4 % (11.6-14.8); White Blood Cell Count 11.1 X10^3/uL (4.5-11.0)
[2019-10-02 22:28] LABS: Alanine Aminotransferase 135 IU/L (<35); Albumin 4.5 g/dL (3.5-5.0); Albumin Globulin Ratio 1.4 (1.0-2.8); Alkaline Phosphatase 83 U/L (38-126); Aspartate Aminotransferase 64 IU/L (14-36); BUN Creatinine Ratio 17.9 (6-22); Bilirubin Total 0.5 mg/dL (0.2-1.3); Blood Urea Nitrogen 14 mg/dL (7-17); Carbon Dioxide 23 mmol/L (22-32); Chloride 111 mmol/L (98-107); Estimated Glomerular Filt Rate > 60.0 mL/min (>60); Globulin 3.2 g/dL (1.7-4.1); Glucose 81 mg/dL (70-100); HEMOLYSIS < 15 (0-50); Potassium 4.2 mmol/L (3.4-5.1); Sodium 140 mmol/L (137-145); Total Protein 7.7 g/dL (6.3-8.2)
[2019-10-02] MEDS: SODIUM CHLORIDE 0.9% 1,000 ML 1000 ML IV (22:35)
[2019-10-02 22:40] LABS: NT-proBNP (BNP-Adult 18+) 159 pg/mL (<125); Troponin I < 0.012 ng/mL (0.01-0.034)
[2019-10-02] MEDS: KETOROLAC 60 MG/2 ML VIAL 15 MG IV (22:52)
[2019-10-02 22:54] VITALS: BP 101/56; PULSE 74; RESP 16; O2SAT 100
--- NOTE | 2019-10-02 23:43 | ED.GENADULT ---
HPI - General Adult General Chief complaint: Back Pain/Injury Stated complaint: states heart feels really slow, grinding Time Seen by Provider: 10/02/19 19:52 Source: patient Mode of arrival: Ambulatory History of Present Illness HPI narrative: 44-year-old woman with a history of Arnold-Chiari malformation, depression and anxiety, schizoaffective disorder, hypothyroidism with recent syncopal episode with IUD removal and replacement. She was seen and evaluated in the emergency department and noted to have mild bradycardia. She was seen again the following day by her primary care physician noted to have a slight fever and sent to the [facility]. Covered screen was done. Her complaints are vague and include simply not feeling well, low back pain a sense that her heart is slow and grinding over the last couple of days. Of note she is currently on propranolol 60 mg a day and Topamax was added approximately 2 weeks ago. She reports mild exertional dyspnea but no coughing or wheezing. No overt chest pain or palpitations. Related Data Home Medications Medication Instructions Recorded Confirmed baclofen 10 mg tablet 10 mg PO TID PRN 02/11/19 10/01/19 propranolol 60 mg tablet 60 mg PO .morning tab 06/27/19 10/01/19 pregabalin 50 mg capsule 50 mg PO BID 08/22/19 10/01/19 Previous Rx's Medication Instructions Recorded ropinirole 0.25 mg tablet 0.25 mg PO BEDTIME #30 tab 07/15/19 quetiapine 200 mg tablet 200 mg PO BEDTIME #30 tab 07/24/19 quetiapine 25 mg tablet 25 mg PO BID PRN #60 tab 07/24/19 lamotrigine 100 mg tablet 200 mg PO DAILY #60 tab 07/25/19 promethazine 12.5 mg tablet 12.5 mg PO TID #20 tab 08/07/19 suvorexant 15 mg tablet 15 mg PO BEDTIME #30 tab 09/04/19 ibuprofen 600 mg tablet 600 mg PO .COMPLEX PRN #30 tab 09/17/19 lithium carbonate 300 mg capsule 600 mg PO BEDTIME #60 cap 09/24/19 furosemide 20 mg PO QAM #30 tab 10/03/19 Allergies Allergy/AdvReac Type Severity Reaction Status Date / Time topiramate [From Topamax] Allergy Verified 10/02/19 16:38 Review of Systems Review of Systems Narrative: Pertinent positive and negative findings as per HPI Remainder of review of systems is otherwise unremarkable for Constitutional: Fevers, chills, ENT: No sore throat, neck pain, ear pain CV: Chest pain, palpitations, Respiratory: Cough, wheeze, GI: Nausea, vomiting, diarrhea, change in bowel habits, black or bloody stools : Dysuria, hematuria, flank pain Patient History Medical History Arnold-Chiari malformation (Chronic) Encounter for screening laboratory testing for COVID-19 virus (Acute) History of anorexia nervosa (Acute) Paresthesia and pain of both upper extremities (Acute) Paresthesia of right leg (Acute) Schizoaffective disorder, bipolar type (Acute) Urinary Incontinence (Acute) Weight gain finding (Acute) Surgical History History of spinal fusion Status post delivery Status post laminectomy Family History Grandfather Cancer Grandmother Cancer Mother Age: 70 Mental health problem Grandfather Cancer Grandmother Cancer Social History Smoking Status: Former smoker Smoking Status: Former smoker alcohol intake frequency: other Substance Use Type: marijuana Exam Narrative Exam Narrative: General: Healthy appearing, in no acute distress. Able to give a complete and coherent history. Well-nourished well-developed HEENT: Moist mucous membranes, normal sclera with reactive pupils, Neck: No JVD, supple Respiratory: Lungs are clear to auscultation, no wheezing no rales no rhonchi. Full and symmetrical air movement Cardiac: Regular rate and rhythm no murmurs no bruits Abdomen: Soft nontender good bowel tones, no flank pain Skin: Warm and dry, no rashes Neurologic: Grossly neurologically intact with no obvious asymmetries or abnormalities Extremities: No trauma, well perfused Psych: Cooperative, appropriate insight and affect Initial Vital Signs Initial Vital Signs: Vital Signs Temperature 98.7 F 10/02/19 16:39 Pulse Rate 58 L 10/02/19 16:39 Respiratory Rate 13 10/02/19 16:39 Blood Pressure 158/87 H 10/02/19 16:39 Pulse Oximetry 99 10/02/19 16:39 Course Orders Ordered: ED Orders 10/02/19 21:55 EKG-12 Lead Stat 10/02/19 22:05 Complete Blood Count AUTO DIFF Stat Comprehensive Metabolic Panel Stat [place] Stat NT-proBNP (BNP-Adult 18+) Stat Troponin I Stat 10/02/19 23:45 XR chest 1V Stat Discontinued Medications Furosemide (Lasix) 40 mg IV NOW ONE Stop: 10/03/19 02:25 Last Admin: 10/03/19 03:03 Dose: 40 mg Documented by: SHAN Sodium Chloride (Normal Saline 0.9%) 1,000 mls @ 1,000 mls/hr IV BOLUS ONE Stop: 10/02/19 22:54 Last Infusion: 10/03/19 01:15 Dose: 0 mls/hr Documented by: [email or web address] Admin: 10/02/19 22:35 Dose: 1,000 mls/hr Documented by: [email or web address] Ketorolac Tromethamine (Toradol) 15 mg IV NOW ONE Stop: 10/02/19 21:56 Last Admin: 10/02/19 22:52 Dose: 15 mg Documented by: [email or web address] Promethazine HCl (Phenergan) 25 mg PO NOW ONE Stop: 10/02/19 23:43 Last Admin: 10/03/19 00:03 Dose: 25 mg Documented by: [email or web address] Vital Signs Vital signs: Vital Signs - 8 hr 10/02/19 20:00 10/02/19 21:31 10/02/19 22:54 Pulse Rate 69 51 L 74 Respiratory Rate 16 17 16 Blood Pressure 148/88 H 121/58 L 101/56 L Pulse Oximetry 100 100 100 10/03/19 01:18 10/03/19 01:19 10/03/19 01:30 Pulse Rate 55 L 60 51 L Respiratory Rate 19 16 13 Blood Pressure 131/74 131/74 117/62 Pulse Oximetry 100 100 98 10/03/19 02:00 10/03/19 02:01 10/03/19 02:30 Pulse Rate 49 L 48 L 50 L Respiratory Rate 12 13 18 Blood Pressure 141/63 H 120/74 Pulse Oximetry 100 100 97 Medical Decision Making Medical Records Medical records reviewed: Yes I reviewed the patient's medical records. Lab Data Lab results reviewed: Yes I reviewed the patient's lab results. Result diagrams: 10/02/19 22:05 10/02/19 22:05 Labs: Lab Results 10/02/19 10/02/19 10/02/19 Range/Units 22:05 22:05 22:05 WBC 11.1 H (4.5-11.0) X10^3/uL RBC 4.39 (4.0-5.2) X10^6/uL Hgb 13.9 (12.0-16.0) g/dL Hct 40.1 (36-46) % MCV 91.3 (80-100) fL MCH 31.7 (26-34) PG MCHC 34.7 (30-36) % RDW 13.4 (11.6-14.8) % Plt Count 283 (150-400) X10^3/uL Neut % (Auto) 67.9 (50-75) % Lymph % (Auto) 19.7 L (25-40) % [place] % (Auto) 6.8 (3-14) % Eos % (Auto) 4.8 H (2-4) % Baso % (Auto) 0.8 (0-2) % Neut # (Auto) 7500 H (7407-5102) /uL Lymph # (Auto) 2200 (0601-6546) /uL [place] # (Auto) 700 (0-900) /uL Eos # (Auto) 500 H (0-450) /uL Baso # (Auto) 100 (0-100) /uL Sodium 140 (137-145) mmol/L Potassium 4.2 (3.4-5.1) mmol/L Chloride 111 H (98-107) mmol/L Carbon Dioxide 23 (22-32) mmol/L BUN 14 (7-17) mg/dL Creatinine 0.78 (0.52-1.04) mg/dL Estimated GFR > 60.0 (>60) mL/min BUN/Creatinine Ratio 17.9 (6-22) Glucose 81 (70-100) mg/dL Calcium 10.0 (8.4-10.2) mg/dL Total Bilirubin 0.5 (0.2-1.3) mg/dL AST 64 H (14-36) IU/L ALT 135 H (<35) IU/L Alkaline Phosphatase 83 (38-126) U/L Troponin I < 0.012 (0.01-0.034) ng/mL NT-Pro-B Natriuret Pep 159 H (<125) pg/mL Total Protein 7.7 (6.3-8.2) g/dL Albumin 4.5 (3.5-5.0) g/dL Globulin 3.2 (1.7-4.1) g/dL Albumin/Globulin Ratio 1.4 (1.0-2.8) [place] 0.7 (0.6-1.2) mmol/L Imaging Data Chest x-ray: Attestation: I personally reviewed and interpreted this imaging study as follows: My Impression: Mild cephalization without pleural effusion and no cardiomegaly. No infiltrates. ECG Data Attestation: I personally reviewed and interpreted this ECG as follows: Interpretation: Sinus bradycardia at 44 Normal intervals, normal axis \no acute ischemic changes MDM Narrative Medical decision making narrative: Throughout her emergency room visit patient has been in the a relative bradycardic rhythm mid 40s to low 50s. Very minimally elevated proBNP. I am wondering if there may be a component of mild heart failure due to her slow rate and this is causing some of the exertional dyspnea and chest symptoms of which she complains. I am going to ask her to hold her propranolol for the next days and see if this helps with heart rate. Recently started Topamax however Topamax does not have any cardiac side effects listed. [place] level is currently pending. There is no evidence of acute infection or acute coronary syndrome. Discharge Plan Departure Patient Disposition: Home Clinical Impression: Bradycardia Congestive heart failure Qualifiers: Heart failure type: unspecified Heart failure chronicity: acute Qualified Code(s): I50.9 - Heart failure, unspecified Instructions: DI for Heart Failure, DI for Bradycardia Activity Restrictions/Additional Instructions: Thak you for coming in today I did not find any life threatening issues with your work up today. Specifically, there is no evidence of a heart attack, pneumonia, a collapsed lung, blood clots in your lungs, or severe infection. We did find that your heart rate was continuing to be quite slow. I am concerned this low heart rate is causing your heart to be less efficient and there is a bit of fluid backing up into your lungs giving you that sensation of heaviness. I am going to suggest that you stop your propranolol, 1 of its main side effects is slowing your heart. I am also going to suggest that you take 20 mg of Lasix for the next week to get rid of some of the excess fluid. [facility] [place].. Please schedule an appointment with Dr. Abad for sometime next week. I would like to make sure that your heart rate is consistently higher than 60. Dr Abad will need to help you decide if you should stay on the furosemide/lasix or if it safe to stop. If you do continue it, she may want to have you take potassium at the same time. Prescriptions: New furosemide 20 mg tablet 20 mg PO QAM Qty: 30 RF: 0 No Action baclofen 10 mg tablet 10 mg PO TID PRN (Reason: muscle spasm) RF: 0 lamotrigine 100 mg tablet 200 mg PO DAILY Qty: 60 RF: 1 pregabalin [Lyrica] 50 mg capsule 50 mg PO BID RF: 0 lithium carbonate 300 mg capsule 600 mg PO BEDTIME Qty: 60 RF: 1 propranolol 60 mg tablet 60 mg PO .morning RF: 0 ropinirole 0.25 mg tablet 0.25 mg PO BEDTIME Qty: 30 RF: 2 quetiapine 25 mg tablet 25 mg PO BID PRN (Reason: anxiety) Qty: 60 RF: 1 Hold Instructions: order change quetiapine 200 mg tablet 200 mg PO BEDTIME Qty: 30 RF: 1 promethazine 12.5 mg tablet 12.5 mg PO TID Qty: 20 RF: 0 suvorexant 15 mg tablet 15 mg PO BEDTIME Qty: 30 RF: 0 ibuprofen 600 mg tablet 600 mg PO .COMPLEX PRN (Reason: pain) Qty: 30 RF: 0 Referrals: Cleo Abad ARNP [Primary Care Provider] -
--- NOTE | 2019-10-02 23:45 | DI.RAD.S_ITS ---
PROCEDURE: XR CHEST 1V INDICATIONS: Chest heaviness TECHNIQUE: One view of the chest was acquired. COMPARISON: [facility], CR, XR CHEST 1V, 09/30/2019, 10:00. FINDINGS: Surgical changes and devices: Cervical spine fixation hardware. Lungs and pleura: Lungs are clear. No pleural effusions or pneumothorax. Mediastinum: Mediastinal contours appear normal. Heart size is normal. Bones and chest wall: No suspicious bony lesions. Overlying soft tissues appear unremarkable. IMPRESSION: No acute cardiopulmonary disease process.7 Dictated by: Carey Fermin MD, PhD on 10/03/2019 at 8:42 Approved by: Carey Ferimn MD, PhD on 10/03/2019 at 8:43
[2019-10-03] VITALS (8 sets, daily range): BP systolic 115–141; BP diastolic 62–74; PULSE 48–60; RESP 12–23; O2SAT 97–100
[2019-10-03] MEDS: PROMETHAZINE 25 MG TABLET PO (00:03)
[2019-10-03 00:19] LABS: Lithium 0.7 mmol/L (0.6-1.2)
[2019-10-03] MEDS: FUROSEMIDE 40 MG/4 ML VIAL IV (03:03)
== END 2019-10-03 06:11 | disposition home or self-care (01) ==
PROVIDERS: Emergency Provider Emergency Medicine; Family Provider Nurse Practitioner; PCP Nurse Practitioner
DX: I50.9 Heart failure, unspecified (principal); R00.1 Bradycardia, unspecified
CPT/HCPCS: 36415; 71045; 80053; 80178; 83880; 84484; 85025; 93005; 96361; 96374; 96375; 99284; J1885; J1940

== ENCOUNTER → 2019-10-07 12:53 | Outpatient (CLI) | payer MEDICARE, MEDICAID, SELFPAY ==
[2019-10-07 14:16] LABS: Alanine Aminotransferase 46 IU/L (<35); Albumin 4.9 g/dL (3.5-5.0); Albumin Globulin Ratio 1.6 (1.0-2.8); Alkaline Phosphatase 90 U/L (38-126); Aspartate Aminotransferase 27 IU/L (14-36); BUN Creatinine Ratio 14.1 (6-22); Bilirubin Total 0.6 mg/dL (0.2-1.3); Blood Urea Nitrogen 9 mg/dL (7-17); Carbon Dioxide 28 mmol/L (22-32); Chloride 102 mmol/L (98-107); Estimated Glomerular Filt Rate > 60.0 mL/min (>60); Glucose 93 mg/dL (70-100); HEMOLYSIS < 15 (0-50); Potassium 4.4 mmol/L (3.4-5.1); Sodium 140 mmol/L (137-145); Total Protein 7.9 g/dL (6.3-8.2)
--- NOTE | 2019-10-07 15:40 | DI.CT.S_ITS ---
PROCEDURE: CT KIDNEY URETER BLADDER (KUB) INDICATIONS: hematuria, low back pain TECHNIQUE: Noncontrast 5 mm thick sections acquired from the diaphragms to the symphysis. 5 mm thick coronal and sagittal reformats were then performed. For radiation dose reduction, the following was used: automated exposure control, adjustment of mA and/or kV according to patient size. COMPARISON: [facility], CT, KIDNEY/ URETER/BLADDER, 11/18/2014, 19:25. FINDINGS: Image quality: Excellent. Lung bases: Lung bases are clear. Heart size is normal. Urinary system: Both kidneys are normal in size. No kidney stones. No hydronephrosis or perinephric fat stranding. Both ureters appear non-dilated throughout their expected courses. Bladder wall thickness is normal; no calcified bladder stones. Other solid organs: Subcentimeter hypodense lesions in the liver are too small to characterize, but most likely represents cyst. Liver is normal in size. Gallbladder appears normal. Pancreas is normal in contours. Spleen is normal in size. A coarse calcification is seen in the spleen. No adrenal nodules. Peritoneum and bowel: Unenhanced bowel loops demonstrate normal wall thickness and caliber. The appendix is normal in size. No free fluid or air. Nodes and vessels: No retroperitoneal or mesenteric adenopathy by size criteria. Aorta and inferior vena cava are normal in caliber. Abdominal wall: No ventral hernias. Pelvis: No free pelvic fluid. No inguinal hernias or adenopathy. An intrauterine device is seen in expected position within the uterus. A 2 cm left ovarian cyst is considered physiologic. Bones: No suspicious bony lesions. No vertebral body compression fractures. IMPRESSION: No renal or ureteral calculus. There is no hydronephrosis. No acute abnormality is identified. Dictated by: Solis Blackwell M.D. on 10/07/2019 at 16:02 Approved by: Solis Blackwell M.D. on 10/07/2019 at 16:11
[2019-10-08 04:39] LABS: HBsAg Screen Negative (Negative); Hepatitis A Antibody IgM Negative (Negative); Hepatitis B Core Antibody IgM Negative (Negative); Hepatitis C Antibody <0.1 s/co ratio (0.0-0.9)
== END ==
PROVIDERS: Family Provider Nurse Practitioner; PCP Nurse Practitioner; Referring Provider Nurse Practitioner; Visit Provider Nurse Practitioner
DX: Z01.812 Encounter for preprocedural laboratory examination (principal); M54.5 Low back pain; M54.9 Dorsalgia, unspecified; R31.9 Hematuria, unspecified; R79.89 Other specified abnormal findings of blood chemistry
CPT/HCPCS: 36415; 74176; 80053; 80074

== ENCOUNTER → 2019-10-17 14:35 | Outpatient (CLI) | payer MEDICARE, MEDICAID, SELFPAY ==
--- NOTE | 2019-11-06 10:13 | PM.CARDMON.1 ---
[employer] Report Referral & Results Date Patient Seen: 10/17/19 Requesting provider: Cleo Abad Indication: Cardiac arrhythmia Duration of monitoring (days): 7 Diary information: There were 2 patient triggered events and 2 patient diary entries The patient triggered events were associated variably with (within 45 seconds) sinus rhythm, PVCs, PACs, and ventricular tachycardia The diary entries were associated with (within 45 seconds) sinus rhythm, PVCs, and PACs Data: Minimum heart rate identified was 50 beats per minute at 07:19 on 10/22/2019 Maximum heart rate was 145 beats per minute at 11:37 on 10/24/2019 Less than 1% of identified beats or either ventricular supraventricular ectopic in origin There was 1 5 beat run of ventricular tachycardia at a rate of 135 beats per minute and this was within 45 seconds of 1 of the patient triggered events 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 Clinical correlation suggested
== END ==
PROVIDERS: Family Provider Nurse Practitioner; PCP Nurse Practitioner; Referring Provider Nurse Practitioner; Visit Provider Nurse Practitioner
DX: I49.9 Cardiac arrhythmia, unspecified (principal)
CPT/HCPCS: 0296T; 0298T

== ENCOUNTER → 2019-11-04 15:22 | Outpatient (CLI) | payer MEDICARE, MEDICAID, SELFPAY ==
[2019-11-04 15:27] LABS: RBC Urine None Seen (0-5/HPF)
[2019-11-04 16:03] LABS: Add Manual Diff / Slide Review NO; Appearance Urine UA CLEAR; Basophils Absolute Auto 100 /uL (0-100); Basophils Percent Auto 0.9 % (0-2); Bilirubin Urine UA NEGATIVE (NEGATIVE); Color Urine UA YELLOW; Eosinophils Absolute Auto 300 /uL (0-450); Eosinophils Percent Auto 2.8 % (2-4); Glucose Urine UA NEGATIVE (Negative); Hematocrit 38.3 % (36-46); Hemoglobin 12.9 g/dL (12.0-16.0); Ketones Urine UA NEGATIVE (NEGATIVE); Leukocyte Esterase Urine UA NEGATIVE (NEGATIVE); Lymphocytes Absolute Auto 2100 /uL (1100-4500); Lymphocytes Percent Auto 23.3 % (25-40); Mean Corpuscular HGB Conc 33.5 % (30-36); Mean Corpuscular Hemoglobin 31.5 PG (26-34); Monocytes Absolute Auto 600 /uL (0-900); Monocytes Percent Auto 7.1 % (3-14); Neutrophils Absolute Auto 6000 /uL (1500-7000); Neutrophils Percent Auto 65.9 % (50-75); Nitrite Urine UA NEGATIVE (Negative); Occult Blood Urine UA NEGATIVE (Negative); Platelet Count 245 X10^3/uL (150-400); Protein Urine UA NEGATIVE (Negative); Red Blood Cell Count 4.08 X10^6/uL (4.0-5.2); Red Cell Distribution Width 13.3 % (11.6-14.8); Specific Gravity Urine UA 1.015 (1.000-1.035); Urobilinogen Urine UA 0.2 E.U./dL (0.2); White Blood Cell Count 9.1 X10^3/uL (4.5-11.0)
[2019-11-04 16:21] LABS: pH Urine UA 7.5 (4.5-8.0)
[2019-11-04 16:22] LABS: Bacteria Urine Few (2-10); Squamous Epithelial Cell Urine 1-5 /HPF (0-5/HPF); WBC Urine 0-1/HPF (0-5/HPF)
[2019-11-04 16:23] LABS: BUN Creatinine Ratio 9.2 (6-22); Blood Urea Nitrogen 6 mg/dL (7-17); Calcium 9.8 mg/dL (8.4-10.2); Carbon Dioxide 29 mmol/L (22-32); Chloride 105 mmol/L (98-107); Estimated Glomerular Filt Rate > 60.0 mL/min (>60); Glucose 90 mg/dL (70-100); HEMOLYSIS < 15 (0-50); Potassium 4.7 mmol/L (3.4-5.1); Sodium 141 mmol/L (137-145)
== END ==
PROVIDERS: Family Provider Nurse Practitioner; PCP Nurse Practitioner; Referring Provider Nurse Practitioner; Visit Provider Nurse Practitioner
DX: Z01.812 Encounter for preprocedural laboratory examination (principal); R50.9 Fever, unspecified; R31.9 Hematuria, unspecified
CPT/HCPCS: 36415; 80048; 81001; 85025

== ENCOUNTER → 2020-01-21 16:56 | Outpatient (CLI) | payer MEDICARE, MEDICAID, SELFPAY ==
--- NOTE | 2020-01-21 17:07 | DI.RAD.S_ITS ---
PROCEDURE: XR CERVICAL SPINE 2V OR 3V INDICATIONS: evaluate and treat for neck pain, arm pain TECHNIQUE: 3 view(s) of the cervical spine were acquired. COMPARISON: [facility], , C-SPINE WITHOUT CONTRAST, 09/28/2015, 17:28. FINDINGS: Bones: Postoperative changes are seen, with an anterior cervical spine fusion plate at the C5 through C7 levels. The fusion plate appears well seated. No findings of hardware failure or hardware loosening are seen. No displaced fractures are seen. No suspicious lytic or blastic lesions are seen. There is moderate disc space narrowing seen at C7-T1. Soft tissues: No prevertebral soft tissue swelling. The visualized lung apices are unremarkable. IMPRESSION: Unremarkable C5 through C7 postoperative hardware. Dictated by: Drew Osborne M.D. on 01/21/2020 at 17:42 Approved by: Drew Osborne M.D. on 01/21/2020 at 17:43
== END ==
PROVIDERS: Family Provider Nurse Practitioner; PCP Nurse Practitioner; Referring Provider Nurse Practitioner; Visit Provider Nurse Practitioner
DX: M54.2 Cervicalgia (principal); M79.601 Pain in right arm; M79.602 Pain in left arm; Q07.00 Arnold-Chiari syndrome without spina bifida or hydrocephalus; R20.2 Paresthesia of skin
CPT/HCPCS: 72040

== ENCOUNTER → 2020-04-01 15:39 | Outpatient (CLI) | payer MEDICARE, MEDICAID, SELFPAY ==
--- NOTE | 2020-04-01 15:45 | DIET.PN ---
Dietary Progress Note Assessment: 45y F meeting with dietitian for help with diet for stomach ulcers and gastroparesis as well as losing weight and getting rid of cravings. Pt lives c partner who is technical implementation lead cook at [employer], he attends appt c her today. 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 Pt has hx of eating disorder and was down to 77#. Because of pts hx of disordered eating and low body weight, RD will avoid weighing pt in office and will look at regular doctor visits for weight updates, will instead focus on meal composition and timing, functional improvements, and self-confidence. 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 Provided pt c gastroparesis and stomach ulcer MNT documents and reviewed foods to include and avoid. Included smoothie formula as low fat smoothies may be well tolerated at this time. 2. Discussed reward pathway with sugar cravings. Encouraged pt to limit sugar she brings in home, if having suckers choosing those made with xylitol, and find a different way to support focus when working on art projects by trying a variety of things (warm tea, fresh or frozen fruit, music... 3. To support vitality and healthy body weight, encouraged pt to move her body more. Pt has some issues c balance (berta stairs) but feels she can do her PT exercises in the morning before showering and would like to go on more walks to get out of the house. 4. To support healthy weight, discussed Balanced Plate eating with document, encouraging pt to balance portions: /4 PRO, /4 CHO, 1/2 F/V. Discussed low cost F/V options including flash frozen things, onions, sweet potatoes, squash. 5. To support healing of the gastric ulcer, went over foods to heal wounds and their sources including protein, vits a and c, zinc. Monitoring/Evaluations: f/u in 3w to assess progress and problem solve barriers.
== END ==
PROVIDERS: Family Provider Nurse Practitioner; PCP Nurse Practitioner; Referring Provider Nurse Practitioner; Visit Provider Nurse Practitioner
DX: K31.84 Gastroparesis (principal); K25.9 Gastric ulcer, unspecified as acute or chronic, without hemorrhage or perforation
CPT/HCPCS: 97802

== ENCOUNTER → 2020-04-13 12:09 | Outpatient (CLI) | payer MEDICARE, MEDICAID, SELFPAY ==
[2020-04-13 13:12] LABS: Alanine Aminotransferase 16 IU/L (<35); Albumin 4.6 g/dL (3.5-5.0); Albumin Globulin Ratio 1.5 (1.0-2.8); Alkaline Phosphatase 66 U/L (38-126); Aspartate Aminotransferase 22 IU/L (14-36); BUN Creatinine Ratio 14.3 (6-22); Bilirubin Total 0.4 mg/dL (0.2-1.3); Blood Urea Nitrogen 12 mg/dL (7-17); Calcium 9.8 mg/dL (8.4-10.2); Carbon Dioxide 29 mmol/L (22-32); Chloride 102 mmol/L (98-107); Estimated Glomerular Filt Rate > 60.0 mL/min (>60); Glucose 78 mg/dL (70-100); HEMOLYSIS < 15 (0-50); Potassium 4.5 mmol/L (3.4-5.1); Sodium 136 mmol/L (137-145); Total Protein 7.6 g/dL (6.3-8.2)
== END ==
PROVIDERS: Family Provider Nurse Practitioner; PCP Nurse Practitioner; Referring Provider Nurse Practitioner; Visit Provider Nurse Practitioner
DX: G89.29 Other chronic pain (principal); M54.2 Cervicalgia; Z79.899 Other long term (current) drug therapy
CPT/HCPCS: 36415; 80053

== ENCOUNTER → 2020-04-22 15:53 | Outpatient (CLI) | payer MEDICARE, MEDICAID, SELFPAY ==
--- NOTE | 2020-04-22 16:01 | DIET.PN ---
Dietary Progress Note Assessment: 45y F attending nutrition f/u for help c gastroparesis, gastric ulcer, and weight management. To address gastroparesis, pt has made two dietary changes which seem to be helping. Since last visit, pt bought a blender helper and is experimenting with making smoothies, didn't like emeli but will try again with less, using yogurt and fruit right now. Pt started eating more broth based soups. Pt wants to start doing navy naylor soup but using turkey rather than ham as she does not eat pork. Pt purchased smaller suckers and limits herself to four per day which is an improvement from 10 large ones daily. Pt hasn't been doing her PT exercises, but hopes to bring her elastic band out and set on couch as a reminder. Pt is looking for a dog so she can have companionship and a walking yi. Pt reports toradol injections seem to be helping, ulcers do not hurt but never really did. Monitoring/Evaluations: f/u in 3w to assess progress and problem solve barriers.
== END ==
PROVIDERS: Family Provider Nurse Practitioner; PCP Nurse Practitioner; Referring Provider Nurse Practitioner; Visit Provider Nurse Practitioner
DX: K31.84 Gastroparesis (principal); K25.9 Gastric ulcer, unspecified as acute or chronic, without hemorrhage or perforation; Z71.3 Dietary counseling and surveillance
CPT/HCPCS: 97803

== ENCOUNTER → 2020-04-27 16:45 | Outpatient (CLI) | payer MEDICARE, MEDICAID, SELFPAY | PROVIDERS: Family Provider Nurse Practitioner; PCP Nurse Practitioner; Visit Provider Specialist | DX: R32 Unspecified urinary incontinence (principal) | CPT/HCPCS: 87086 ==

== ENCOUNTER → 2020-05-08 16:09 | Outpatient (CLI) | payer MEDICARE, MEDICAID, SELFPAY ==
[2020-05-08 16:34] LABS: COVID19 -Nasal RAPID Negative (Negative)
== END ==
PROVIDERS: Family Provider Nurse Practitioner; PCP Nurse Practitioner; Visit Provider Family Medicine
DX: Z20.822 Contact with and (suspected) exposure to COVID-19 (principal)
CPT/HCPCS: 87635

== ENCOUNTER → 2020-05-19 15:31 | Outpatient (CLI) | payer MEDICARE, MEDICAID, SELFPAY ==
[2020-05-19 16:36] LABS: Add Manual Diff / Slide Review NO; Basophils Absolute Auto 100 /uL (0-100); Basophils Percent Auto 0.8 % (0-2); Eosinophils Absolute Auto 200 /uL (0-450); Eosinophils Percent Auto 1.8 % (2-4); Hemoglobin 13.3 g/dL (12.0-16.0); Lymphocytes Absolute Auto 1900 /uL (1100-4500); Lymphocytes Percent Auto 19.6 % (25-40); Mean Corpuscular HGB Conc 35.1 % (30-36); Mean Corpuscular Hemoglobin 32.9 PG (26-34); Mean Corpuscular Volume 93.7 fL (80-100); Monocytes Absolute Auto 600 /uL (0-900); Neutrophils Absolute Auto 6900 /uL (1500-7000); Neutrophils Percent Auto 71.8 % (50-75); Platelet Count 299 X10^3/uL (150-400); Red Blood Cell Count 4.06 X10^6/uL (4.0-5.2); Red Cell Distribution Width 12.6 % (11.6-14.8); White Blood Cell Count 9.6 X10^3/uL (4.5-11.0)
[2020-05-19 17:07] LABS: C-Reactive Protein Quant < 0.5 mg/dL (<1.0)
[2020-05-19 17:12] LABS: Follicle Stimulating Hormone 9.51 mIU/mL
[2020-05-19 17:20] LABS: Erythrocyte Sedimentation Rate 9 MM/HR (0-20)
[2020-05-21 14:08] LABS: ANA Screen, IFA Negative (.)
== END ==
PROVIDERS: Family Provider Nurse Practitioner; PCP Nurse Practitioner; Referring Provider Nurse Practitioner; Visit Provider Nurse Practitioner
DX: F33.2 Major depressive disorder, recurrent severe without psychotic features (principal); F41.1 Generalized anxiety disorder; G47.00 Insomnia, unspecified; I73.00 Raynaud's syndrome without gangrene; R50.9 Fever, unspecified; R68.89 Other general symptoms and signs
CPT/HCPCS: 36415; 83001; 84443; 85025; 85651; 86038; 86140

== ENCOUNTER → 2020-06-04 15:22 | Outpatient (CLI) | payer MEDICARE, MEDICAID, SELFPAY ==
[2020-06-04] MEDS: COVID-19 VACC #1, MRNA(MOD) 100 MCG/0.5 ML VIAL IM (15:28)
== END ==
PROVIDERS: Family Provider Nurse Practitioner; PCP Nurse Practitioner; Visit Provider Internal Medicine
DX: Z23 Encounter for immunization (principal)
CPT/HCPCS: 0011A; 91301

== ENCOUNTER → 2020-07-02 15:27 | Outpatient (CLI) | payer MEDICARE, MEDICAID, SELFPAY ==
[2020-07-02] MEDS: COVID-19 VACC #2, MRNA(MOD) 100 MCG/0.5 ML VIAL IM (15:33)
== END ==
PROVIDERS: Family Provider Nurse Practitioner; PCP Nurse Practitioner; Visit Provider Internal Medicine
DX: Z23 Encounter for immunization (principal)
CPT/HCPCS: 0012A; 91301

== ENCOUNTER → 2020-08-31 12:23 | Outpatient (CLI) | payer MEDICARE, MEDICAID, SELFPAY ==
[2020-08-31 13:52] LABS: Alanine Aminotransferase 11 IU/L (<35); Albumin 4.4 g/dL (3.5-5.0); Albumin Globulin Ratio 1.6 (1.0-2.8); Alkaline Phosphatase 53 U/L (38-126); Aspartate Aminotransferase 41 IU/L (14-36); BUN Creatinine Ratio 9.9 (6-22); Bilirubin Total 0.4 mg/dL (0.2-1.3); Blood Urea Nitrogen 7 mg/dL (7-17); Calcium 9.4 mg/dL (8.4-10.2); Carbon Dioxide 27 mmol/L (22-32); Chloride 105 mmol/L (98-107); Estimated Glomerular Filt Rate > 60.0 mL/min (>60); Globulin 2.8 g/dL (1.7-4.1); Glucose 87 mg/dL (70-100); HEMOLYSIS 19 (0-50); Potassium 4.7 mmol/L (3.4-5.1); Sodium 138 mmol/L (137-145); Total Protein 7.2 g/dL (6.3-8.2)
== END ==
PROVIDERS: Family Provider Nurse Practitioner; PCP Nurse Practitioner; Referring Provider Nurse Practitioner; Visit Provider Nurse Practitioner
DX: G89.29 Other chronic pain (principal); Z79.1 Long term (current) use of non-steroidal anti-inflammatories (NSAID)
CPT/HCPCS: 36415; 80053

== ENCOUNTER 2020-11-02 15:41 | Emergency (ER) | payer MEDICARE, MEDICAID, SELFPAY ==
--- NOTE | 2020-11-02 16:00 | ED.WEAKNESS ---
HPI - Weakness General Chief complaint: Neuro Symptoms/Deficit Stated complaint: Left Sided Weakness, LOC Last Night Time Seen by Provider: 11/02/20 15:56 History of Present Illness HPI Narrative: Patient is a 45-year-old female with history of PTSD, depression, Arnold-Chiari formation, SVT presenting today with left arm shaking. She states it started shaking this morning both with movement and at rest. It lasted for couple of hours and then resolved. She says last night she passed out but she does not remember what happened. states that they were watching a movie on the couch when she stood up to get something to drink and passed out onto the floor. He said it was a brief loss of consciousness, and she quickly came to there was no shaking or rolling of the eyes or urinary incontinence. He was able to ambulate her to the bedroom. She does not have any recollection of this but does remember watching a movie. Today she took a shower and had some heart palpitations, she states that she always has heart palpitations or getting of the shower she has a history of SVT. She is currently in normal sinus rhythm. She has been getting daily Toradol injections by her primary care provider Monday through Monday to help with her chronic neck pain ongoing for 1 year. Related Data Home Medications Medication Instructions Recorded Confirmed pantoprazole 40 mg tablet,delayed mg PO 03/25/20 10/30/20 release rizatriptan 5 mg tablet mg PO ONCE PRN tab 03/25/20 10/30/20 sucralfate 1 gram tablet 1 g PO ONCE tab 03/25/20 10/30/20 plaabeh-nilhqdbleazuk-kcysapfz 250 1 tab PO Q4-6H PRN 06/22/20 10/30/20 mg-250 mg-65 mg tablet (Excedrin Extra Strength) Previous Rx's Medication Instructions Recorded lubiprostone 24 mcg capsule 24 mcg PO BID #180 cap 03/31/20 (Amitiza) promethazine 12.5 mg tablet 12.5 mg PO TID #30 tab 03/31/20 ketorolac 60 mg/2 mL intramuscular 60 mg IM .COMPLEX #20 ml 09/14/20 cartridge cyclobenzaprine 10 mg tablet 10 mg PO TID PRN #90 tab 09/18/20 trazodone 50 mg tablet 50 mg PO BEDTIME PRN #45 tab 09/22/20 metoclopramide HCl 10 mg tablet 10 mg PO QACHS #360 tab 09/28/20 cariprazine 1.5 mg capsule 1.5 mg PO DAILY #90 cap 10/01/20 lamotrigine 200 mg tablet,extended 200 mg PO DAILY #90 tab 10/01/20 release 24 hr lithium carbonate 300 mg capsule 600 mg PO BEDTIME #60 cap 10/01/20 vilazodone 40 mg tablet 40 mg PO DAILY #90 tab 10/01/20 zolpidem 10 mg tablet 10 mg PO BEDTIME PRN #30 tab 10/01/20 vortioxetine 20 mg tablet See Rx Instructions PO DAILY #30 11/02/20 tab Allergies Allergy/AdvReac Type Severity Reaction Status Date / Time topiramate [From Topamax] Allergy Verified 10/30/20 14:28 propranolol AdvReac Intermediate Verified 10/30/20 14:28 Review of Systems Review of Systems ROS Unobtainable: All systems reviewed & are unremarkable except as noted in HPI and below Constitutional Constitutional: Denies body ache(s), Denies chills and Denies fatigue Eyes Eyes: Denies blurry vision and Denies exophthalmos ENT Ears, Nose, Mouth, and Throat: Denies vertigo and Denies dizziness Cardiovascular Cardiovascular: Denies chest pain, Reports syncope, Reports lightheadedness and Reports palpitations Respiratory Respiratory: Denies chest congestion and Denies cough Gastrointestinal Gastrointestinal: Denies abdominal pain, Denies nausea and Denies vomiting Neurologic Neurologic: Denies vertigo, Denies dizziness and Reports syncope Endocrine Endocrine: Denies fatigue and Reports palpitations Patient History Medical History (Updated 11/02/20 @ 18:39 by Corina Barrios DO) Abdominal pain Abdominal pain, acute, left lower quadrant Anxiety Arnold-Chiari malformation Back pain Chronic neck pain Constipation Constipation by delayed colonic transit Dehydration Elevated LFTs Elevated temperature Encounter for insertion of mirena IUD Encounter for screening laboratory testing for COVID-19 virus Encounter for weight management Encounter for well woman exam with abnormal findings Fever and chills Gastric ulcer Gastroparesis GERD (gastroesophageal reflux disease) Heat exhaustion Hematuria Hematuria History of anorexia nervosa History of kidney stones IUD (intrauterine device) in place Laxative abuse Lazy eye of left side Lower urinary tract symptoms (LUTS) Memory loss of unknown cause Microscopic hematuria Nausea and vomiting Neck muscle spasm Obesity (BMI 30.0-34.9) Palpitations Paresthesia Paresthesia and pain of both upper extremities Paresthesia of right leg Raynauds phenomenon Right lower quadrant abdominal pain Stress incontinence Unwanted fertility URI (upper respiratory infection) Urinary Incontinence Weight gain due to medication Weight gain finding Surgical History H/O brain surgery History of spinal fusion S/P cervical spinal fusion Status post delivery Status post laminectomy Family History Grandfather Cancer Grandmother Cancer Mother Age: 71 Mental health problem Grandfather Cancer Grandmother Cancer Social History marital status: unmarried,living together number of children: 1 Smoking Status: Former smoker alcohol intake: never caffeine: Yes Smoking Status: Former smoker alcohol intake frequency: other Substance Use Type: marijuana Exam Initial Vital Signs Initial Vital Signs: Vital Signs Temperature 97.8 F 11/02/20 16:09 Pulse Rate 74 11/02/20 16:09 Respiratory Rate 18 11/02/20 16:09 Blood Pressure 172/79 H 11/02/20 16:09 Pulse Oximetry 99 11/02/20 16:09 GENERAL: Well-appearing, well-nourished and in no acute distress. HEENT: Head atraumatic,EOMI, pupils reactive, face symmetric, moist mucous membranes NECK: Painful posterior neck decreased range of motion secondary to pain she states this is baseline. CARDIOVASCULAR: Regular rate and rhythm without murmurs, rubs or gallops. RESPIRATORY: Breath sounds equal bilaterally, no wheezes rales or rhonchi. ABDOMEN: Soft, nontender. Normoactive bowel sounds all 4 quadrants. No guarding or rebound. EXTREMITIES: Normal range of motion, no clubbing or edema. Neurovascularly intact NEUROLOGICAL: Alert and oriented x4.Normal gait and speech. Cranial nerves II through XII grossly intact. Good mpmueo-yt-yfix, good roug-ro-zakv, strength equal bilaterally, no dysarthria or aphasia, sensation in tact to soft touch bilaterally, no visual changes, no facial droop SKIN: Warm, dry, no laceration, no petechiae, no rashes or lesions. Scores NIH Stroke Scale Level of Conciousness: Alert, keenly responsive Ask month/age: Answers both questions correctly. Open/close eyes, close hand: Performs both tasks correctly Best gaze horizontal: Normal Visual rooney: No visual loss Facial palsy: Normal symetrical movement Left arm drift: No drift for full 10 sec Right arm drift: No drift for full 10 sec Left leg drift: No drift for full 5 sec Right leg drift: No drift for full 5 sec Limb ataxia: Absent Sensory on face/arms/legs: Normal, no sensory loss Best language: No aphasia, normal Dysarthria: Normal Extinction or inattention: No abnormality Total NIH Stroke scale score: 0 Course Orders Ordered: ED Orders 11/02/20 16:11 CT head/brain wo con Stat 11/02/20 17:11 Complete Blood Count AUTO DIFF Stat Comprehensive Metabolic Panel Stat Prolactin Stat Discontinued Medications Sodium Chloride (Normal Saline 0.9%) 1,000 mls @ 1,000 mls/hr IV BOLUS ONE Stop: 11/02/20 18:23 Last Infusion: 11/02/20 18:40 Dose: 0 mls/hr Documented by: Admin: 11/02/20 17:24 Dose: 1,000 mls/hr Documented by: MALINDA Vital Signs Vital signs: Vital Signs - 8 hr 11/02/20 16:09 11/02/20 17:20 11/02/20 18:50 Temperature 97.8 F Pulse Rate 74 67 Pulse Rate [Orthostatic Lying] 71 Pulse Rate [Orthostatic Sitting] 58 L Pulse Rate [Orthostatic Standing] 68 Respiratory Rate 18 16 Blood Pressure 172/79 H 99/54 L Blood Pressure [Orthostatic Lying] 111/66 Blood Pressure [Orthostatic Sitting] 129/77 Blood Pressure [Orthostatic Standing] 124/78 Pulse Oximetry 99 100 MDM - Weakness Lab Data Attestation: I reviewed the patient's lab results. Result diagrams: 11/02/20 17:11 11/02/20 17:11 Labs: Lab Results 11/02/20 11/02/20 Range/Units 17:11 17:11 WBC 10.2 (4.5-11.0) X10^3/uL RBC 4.04 (4.0-5.2) X10^6/uL Hgb 13.1 (12.0-16.0) g/dL Hct 37.5 (36-46) % MCV 93.0 (80-100) fL MCH 32.4 (26-34) PG MCHC 34.9 (30-36) % RDW 12.7 (11.6-14.8) % Plt Count 271 (150-400) X10^3/uL Neut % (Auto) 67.5 (50-75) % Lymph % (Auto) 21.7 L (25-40) % Fallon % (Auto) 7.1 (3-14) % Eos % (Auto) 2.9 (2-4) % Baso % (Auto) 0.8 (0-2) % Neut # (Auto) 6900 (4620-5825) /uL Lymph # (Auto) 2200 (8379-1598) /uL Fallon # (Auto) 700 (0-900) /uL Eos # (Auto) 300 (0-450) /uL Baso # (Auto) 100 (0-100) /uL Sodium 138 (137-145) mmol/L Potassium 4.5 (3.4-5.1) mmol/L Chloride 105 (98-107) mmol/L Carbon Dioxide 26 (22-32) mmol/L BUN 8 (7-17) mg/dL Creatinine 0.71 (0.52-1.04) mg/dL Estimated GFR > 60.0 (>60) mL/min BUN/Creatinine Ratio 11.3 (6-22) Glucose 87 (70-100) mg/dL Calcium 10.0 (8.4-10.2) mg/dL Total Bilirubin 0.4 (0.2-1.3) mg/dL AST 21 (14-36) IU/L ALT 11 (<35) IU/L Alkaline Phosphatase 57 (38-126) U/L Total Protein 7.7 (6.3-8.2) g/dL Albumin 4.9 (3.5-5.0) g/dL Globulin 2.8 (1.7-4.1) g/dL Albumin/Globulin Ratio 1.8 (1.0-2.8) Prolactin 76.8 H (3.0-18.6) ng/mL Imaging Data CT scan - head: Radiologist Impression: PROCEDURE: CT HEAD/BRAIN WO CON INDICATIONS: Arnold Chiari and syncope TECHNIQUE: Noncontrast 4.5 mm thick angled axial sections acquired from the foramen magnum to the vertex, with coronal and sagittal reformats. For radiation dose reduction, the following was used: automated exposure control, adjustment of mA and/or kV according to patient size. COMPARISON: [facility], CT, HEAD WITHOUT CONTRAST, 06/10/2014, 14:44. [facility], CT, CT HEAD/BRAIN WO CON, 09/30/2019, 12:13. FINDINGS: Image quality: Excellent. CSF spaces: Basal cisterns are patent. No extra-axial fluid collections. Ventricles are normal in size and shape. Brain: No midline shift. No intracranial masses or hemorrhage. Kwon-white matter interface is normal. Low lying cerebellar tonsils again noted associated with suboccipital craniotomy, unchanged from the prior. Skull and face: As above. Otherwise, calvarium and visualized facial bones are intact, without suspicious lesions. Sinuses: Visualized sinuses and mastoids are clear. IMPRESSION: Chiari 1 malformation and decompressive suboccipital craniotomy without change from prior exam. No intracranial hemorrhage or mass effect. Dictated by: David Covington M.D. on 11/02/2020 at 15:37 Approved by: David Covington M.D. on 11/02/2020 at 15:41 ECG Data Attestation: I personally reviewed and interpreted this ECG as follows: Prior ECG tracings: available for review Interpretation: Rhythm rate 64 MD interval 174 QRS 90 QTC 433 Discharge Plan Departure Patient Disposition: Home Clinical Impression: Tremor Instructions: Benign Essential Tremor Activity Restrictions/Additional Instructions: *You have been diagnosed with left hand tremor *What to do: At this time I do not believe that you had a seizure. Blood work is reassuring. Please follow-up with your primary care provider he may need Neurology consultation. I also strongly encourage you to continue acupuncture for pain control. Please discuss daily Toradol injections with her primary care provider this should not be a long-term plan. *Continue to take medications as directed *Follow up with your primary care provider in 2-3 days *Return to ER if you should have seizure activity, palpitations dizziness passing out or any new, worsening or concerning symptoms Prescriptions: No Action zolpidem 10 mg tablet 10 mg PO BEDTIME PRN (Reason: sleep) Qty: 30 RF: 2 lamotrigine 200 mg tablet extended release 24hr 200 mg PO DAILY Qty: 90 RF: 3 cariprazine 1.5 mg capsule 1.5 mg PO DAILY Qty: 90 RF: 1 lithium carbonate 300 mg capsule 600 mg PO BEDTIME Qty: 60 RF: 1 vilazodone 40 mg tablet 40 mg PO DAILY Qty: 90 RF: 0 trazodone 50 mg tablet 50 mg PO BEDTIME PRN (Reason: insomnia) Qty: 45 RF: 1 vortioxetine 20 mg tablet See Rx Instructions PO DAILY Qty: 30 RF: 0 Excedrin Extra Strength 250-250-65 mg tablet 1 tab PO Q4-6H PRNRF: 0 ketorolac 60 mg/2 mL cartridge 60 mg IM .COMPLEX Qty: 20 RF: 5 promethazine 12.5 mg tablet 12.5 mg PO TID Qty: 30 RF: 2 Amitiza 24 mcg capsule 24 mcg PO BID Qty: 180 RF: 3 metoclopramide HCl 10 mg tablet 10 mg PO QACHS Qty: 360 RF: 3 cyclobenzaprine 10 mg tablet 10 mg PO TID PRN (Reason: muscle spasm) Qty: 90 RF: 1 pantoprazole 40 mg tablet,delayed release (DR/EC) PO RF: 0 sucralfate 1 gram tablet 1 g PO ONCE RF: 0 rizatriptan 5 mg tablet PO ONCE PRN (Reason: migraine headache) RF: 0 Referrals: Cleo Abad ARNP [Primary Care Provider] -
[2020-11-02 16:09] VITALS: BP 172/79; PULSE 74; RESP 18; TEMP 36.6; O2SAT 99; BMI 28.7
--- NOTE | 2020-11-02 16:11 | DI.CT.S_ITS ---
PROCEDURE: CT HEAD/BRAIN WO CON INDICATIONS: Arnold Chiari and syncope TECHNIQUE: Noncontrast 4.5 mm thick angled axial sections acquired from the foramen magnum to the vertex, with coronal and sagittal reformats. For radiation dose reduction, the following was used: automated exposure control, adjustment of mA and/or kV according to patient size. COMPARISON: [facility], CT, HEAD WITHOUT CONTRAST, 06/10/2014, 14:44. [facility], CT, CT HEAD/BRAIN WO CON, 09/30/2019, 12:13. FINDINGS: Image quality: Excellent. CSF spaces: Basal cisterns are patent. No extra-axial fluid collections. Ventricles are normal in size and shape. Brain: No midline shift. No intracranial masses or hemorrhage. Kwon-white matter interface is normal. Low lying cerebellar tonsils again noted associated with suboccipital craniotomy, unchanged from the prior. Skull and face: As above. Otherwise, calvarium and visualized facial bones are intact, without suspicious lesions. Sinuses: Visualized sinuses and mastoids are clear. IMPRESSION: Chiari 1 malformation and decompressive suboccipital craniotomy without change from prior exam. No intracranial hemorrhage or mass effect. Dictated by: David Covington M.D. on 11/02/2020 at 15:37 Approved by: David Covington M.D. on 11/02/2020 at 15:41
--- NOTE | 2020-11-02 16:27 | PC.NURSE ---
Pt reports syncope last night upon standing, does not recall episode but per spouse who witnessed states pt conscious immediately after. Reports feeling weak, history of SVT and felt heart rate was rapid after shower, my heart rate is always rapid after my shower.
[2020-11-02 17:20] VITALS: BP 111/66; BP 124/78; BP 129/77; PULSE 58; PULSE 68; PULSE 71
[2020-11-02 17:22] LABS: Add Manual Diff / Slide Review NO; Basophils Absolute Auto 100 /uL (0-100); Basophils Percent Auto 0.8 % (0-2); Eosinophils Absolute Auto 300 /uL (0-450); Eosinophils Percent Auto 2.9 % (2-4); Hematocrit 37.5 % (36-46); Hemoglobin 13.1 g/dL (12.0-16.0); Lymphocytes Absolute Auto 2200 /uL (1100-4500); Lymphocytes Percent Auto 21.7 % (25-40); Mean Corpuscular HGB Conc 34.9 % (30-36); Mean Corpuscular Hemoglobin 32.4 PG (26-34); Monocytes Absolute Auto 700 /uL (0-900); Monocytes Percent Auto 7.1 % (3-14); Neutrophils Absolute Auto 6900 /uL (1500-7000); Neutrophils Percent Auto 67.5 % (50-75); Platelet Count 271 X10^3/uL (150-400); Red Blood Cell Count 4.04 X10^6/uL (4.0-5.2); Red Cell Distribution Width 12.7 % (11.6-14.8); White Blood Cell Count 10.2 X10^3/uL (4.5-11.0)
[2020-11-02] MEDS: SODIUM CHLORIDE 0.9% 1,000 ML 1000 ML IV (17:24)
[2020-11-02 17:33] LABS: Alanine Aminotransferase 11 IU/L (<35); Albumin 4.9 g/dL (3.5-5.0); Albumin Globulin Ratio 1.8 (1.0-2.8); Alkaline Phosphatase 57 U/L (38-126); Aspartate Aminotransferase 21 IU/L (14-36); BUN Creatinine Ratio 11.3 (6-22); Bilirubin Total 0.4 mg/dL (0.2-1.3); Blood Urea Nitrogen 8 mg/dL (7-17); Carbon Dioxide 26 mmol/L (22-32); Chloride 105 mmol/L (98-107); Estimated Glomerular Filt Rate > 60.0 mL/min (>60); Globulin 2.8 g/dL (1.7-4.1); Glucose 87 mg/dL (70-100); HEMOLYSIS < 15 (0-50); Potassium 4.5 mmol/L (3.4-5.1); Sodium 138 mmol/L (137-145); Total Protein 7.7 g/dL (6.3-8.2)
[2020-11-02 17:50] LABS: Prolactin 76.8 ng/mL (3.0-18.6)
[2020-11-02 18:50] VITALS: BP 99/54; PULSE 67; RESP 16; O2SAT 100
== END 2020-11-02 18:50 | disposition home or self-care (01) ==
PROVIDERS: Emergency Provider Emergency Medicine; Family Provider Nurse Practitioner; PCP Nurse Practitioner
DX: R25.1 Tremor, unspecified (principal); R55 Syncope and collapse; R00.2 Palpitations
CPT/HCPCS: 36415; 70450; 80053; 84146; 85025; 93005; 96360; 99284

== ENCOUNTER → 2021-02-05 17:57 | Outpatient (CLI) | payer MEDICARE, MEDICAID, SELFPAY ==
--- NOTE | 2021-02-05 | DI.MRI.S_ITS ---
PROCEDURE: MR CERVICAL SPINE WO CON INDICATIONS: Compression of brain TECHNIQUE: Noncontrast sagittal T1 spin echo and T2 fast spin echo, sagittal STIR, foraminal oblique sagittal T2 fast spin echo, and axial gradient echo or T2 fast spin echo through the cervical spine. COMPARISON: [facility], MR, MR CERVICAL SPINE WO CON, 09/23/2019, 16:15. FINDINGS: Image quality: Excellent. Alignment and Curvature: Anterior fusion is present from C5-C7. There is trace retrolisthesis of C4 on C5 measuring approximately 10 mm. Bone Marrow: Marrow demonstrates normal overall signal. Spinal Cord: Visualized spinal cord has normal size and signal. No cerebellar tonsillar herniation. Paraspinous Soft Tissues: No paravertebral masses. Prevertebral soft tissues are normal in thickness. Discs: Moderate disc desiccation is present throughout the cervical spine. C2-C3: Minimal disc bulge with minimal effacement of the thecal sac. No foraminal narrowing. No interval change. C3-C4: Mild disc bulge with effacement of anterior thecal sac the consistent with minimal to mild spinal stenosis. Moderate right and mild left foraminal narrowing, unchanged. Uncovertebral hypertrophy. C4-C5: Mild disc bulge with superimposed left posterior paracentral protrusion. Moderate spinal stenosis the with minimal anterior cord flattening. Mild bilateral foraminal narrowing with uncovertebral hypertrophy. No appreciable interval change. C5-C6: Surgical fusion is present at this level with susceptibility artifact. No gross spinal stenosis. Moderate right and mild left foraminal narrowing is unchanged. C6-C7: Surgical fusion is present at the level with the susceptibility artifact. There is no spinal stenosis. Mild bilateral foraminal narrowing. No interval change. C7-T1: Mild disc bulge with minimal to mild spinal stenosis. Mild bilateral foraminal narrowing, unchanged. IMPRESSION: 1. Postsurgical fusion and degenerative changes as above, stable compared to prior exam. 2. Multilevel foraminal narrowing is present most severe at C3-4 and C5-6. Dictated by: Kylie Diana M.D. on 02/08/2021 at 12:35 Approved by: Kylie Diana M.D. on 02/08/2021 at 12:56
== END ==
PROVIDERS: Family Provider Nurse Practitioner; PCP Nurse Practitioner; Referring Provider Neurological Surgery; Visit Provider Neurological Surgery
DX: G93.5 Compression of brain (principal); M47.812 Spondylosis without myelopathy or radiculopathy, cervical region; M48.02 Spinal stenosis, cervical region; Z98.1 Arthrodesis status
CPT/HCPCS: 72141

== ENCOUNTER → 2021-02-10 14:26 | Outpatient (CLI) | payer MEDICARE, MEDICAID, SELFPAY ==
[2021-02-10 15:38] LABS: Alanine Aminotransferase 10 IU/L (<35); Albumin 4.7 g/dL (3.5-5.0); Albumin Globulin Ratio 1.7 (1.0-2.8); Alkaline Phosphatase 43 U/L (38-126); Aspartate Aminotransferase 21 IU/L (14-36); BUN Creatinine Ratio 14.5 (6-22); Bilirubin Total 0.5 mg/dL (0.2-1.3); Blood Urea Nitrogen 11 mg/dL (7-17); Calcium 9.8 mg/dL (8.4-10.2); Carbon Dioxide 25 mmol/L (22-32); Chloride 103 mmol/L (98-107); Estimated Glomerular Filt Rate > 60.0 mL/min (>60); Globulin 2.7 g/dL (1.7-4.1); Glucose 86 mg/dL (70-100); HEMOLYSIS < 15 (0-50); Potassium 4.3 mmol/L (3.4-5.1); Sodium 139 mmol/L (137-145); Total Protein 7.4 g/dL (6.3-8.2)
== END ==
PROVIDERS: Family Provider Nurse Practitioner; PCP Nurse Practitioner; Referring Provider Nurse Practitioner; Visit Provider Nurse Practitioner
DX: G89.29 Other chronic pain (principal); M54.2 Cervicalgia; Z79.899 Other long term (current) drug therapy
CPT/HCPCS: 36415; 80053

== ENCOUNTER → 2021-06-07 14:52 | Outpatient (CLI) | payer MEDICARE, MEDICAID, SELFPAY ==
--- NOTE | 2021-07-01 09:26 | P.HOLT.S_ITS ---
Entry Level Business Analyst Report Referral & Results Date Patient Seen: 06/07/21 Requesting provider: Cleo Abad Indication: Palpitations Duration of monitoring (days): 14 Diary information: There were 10 patient triggered events and 8 patient diary entries All of these patient events were associated with sinus rhythm only Data: Minimum heart rate identified was 43 beats per minute at 05:36 on 06/17/2021 Maximum overall heart rate was sinus at a rate of 155 beats per minute at 12:24 on 06/14/2021 Less than 1% of identified beats were ventricular or supraventricular ectopic in origin, which would classify them as rare. No pauses of 3 seconds or longer were identified on this study No atrial fibrillation No other dysrhythmias identified Impression: 14 day nurse monitoring that does not demonstrate any notable dysrhythmias, including simple PVCs and PACs which were quite rare and not connected with patient reported events
== END ==
PROVIDERS: Family Provider Nurse Practitioner; PCP Nurse Practitioner; Referring Provider Nurse Practitioner; Visit Provider Nurse Practitioner
DX: R00.2 Palpitations (principal); R00.1 Bradycardia, unspecified; R00.0 Tachycardia, unspecified
CPT/HCPCS: 93246; 93248

== ENCOUNTER → 2021-06-15 13:47 | Outpatient (CLI) | payer MEDICARE, MEDICAID, SELFPAY ==
[2021-06-15 16:06] LABS: Cholesterol 208 mg/dL (140-199); Glucose 88 mg/dL (70-100); HDL Cholesterol 82 mg/dL (40-60); LDL Cholesterol Calculated 117 mg/dL (<100); Triglycerides 46 mg/dL (35-150)
== END ==
PROVIDERS: Family Provider Nurse Practitioner; PCP Nurse Practitioner; Referring Provider Psychiatry & Neurology Psychiatry; Visit Provider Psychiatry & Neurology Psychiatry
DX: Z79.899 Other long term (current) drug therapy (principal); F25.1 Schizoaffective disorder, depressive type
CPT/HCPCS: 36415; 80061; 82947

== ENCOUNTER → 2021-06-21 13:18 | Outpatient (CLI) | payer MEDICARE, MEDICAID, SELFPAY ==
--- NOTE | 2021-06-21 13:21 | DI.RAD.S_ITS ---
PROCEDURE: XR CERVICAL SPINE 4V OR 5V INDICATIONS: NECK PAIN TECHNIQUE: 5 views of the cervical spine acquired. COMPARISON: [facility], , XR CERVICAL SPINE 2V OR 3V, 01/21/2020, 17:18. FINDINGS: Bones: Postsurgical changes compatible with C5-C7 ACDF. Orthopedic hardware is in expected position. Orthopedic hardware is intact. No fractures or dislocations to the T1 level. Oblique images demonstrate no bony foraminal stenoses. Mild C3-C4 and C4-C5 degenerative disc disease. Moderate C7-T1 degenerative disc disease. Mild facet hypertrophy noted throughout the cervical spine. Mild right C3-C4 and bilateral C4-C5 uncovertebral joint hypertrophy. No significant osseous foraminal narrowing. Soft tissues: No prevertebral soft tissue swelling. IMPRESSION: 1. 1. Multilevel degenerative disc disease. 2. Multilevel facet arthropathy. 3. No fracture. No acute osseous lesion. If symptoms and/or clinical suspicion for pathology persists, evaluation with MRI should be considered for further assessment. 4. Status post C5-C7 ACDF. Dictated by: Carey Fermin MD, PhD on 06/21/2021 at 15:18 Approved by: Carey Fermin MD, PhD on 06/21/2021 at 15:20
== END ==
PROVIDERS: Family Provider Nurse Practitioner; PCP Nurse Practitioner; Referring Provider Physical Medicine & Rehabilitation; Visit Provider Physical Medicine & Rehabilitation
DX: M50.31 Other cervical disc degeneration, high cervical region (principal); M47.812 Spondylosis without myelopathy or radiculopathy, cervical region; M62.838 Other muscle spasm; Z98.1 Arthrodesis status
CPT/HCPCS: 72050

== ENCOUNTER → 2021-06-29 09:07 | Outpatient (CLI) | payer MEDICARE, MEDICAID, SELFPAY ==
--- NOTE | 2021-06-29 09:10 | DI.MRI.S_ITS ---
PROCEDURE: MR CERVICAL SPINE WO/W CON INDICATIONS: Clinical concern for autonomic dysreflexia as cause of patient's symptoms TECHNIQUE: Noncontrast sagittal T1 spin echo and T2 fast spin echo, sagittal STIR, foraminal oblique sagittal T2 fast spin echo, axial gradient echo or T2 fast spin echo through the cervical spine. After the administration of contrast, axial and sagittal T1 spin echo with fat saturation through the cervical spine. COMPARISON: [facility], MR, MR THORACIC SPINE WO/W CON, 06/29/2021, 9:24. [facility], CR, XR CERVICAL SPINE 4V OR 5V, 06/21/2021, 13:23. [facility], MR, MR CERVICAL SPINE WO CON, 02/05/2021, 18:19. [facility], MR, MR CERVICAL SPINE WITH/WITHOUT CONTRAST, 02/24/2021, 15:40. FINDINGS: Image quality: There is artifact associated with the metallic hardware. This examination is limited by involuntary motion artifact. Alignment and curvature: There is normal bony alignment. Marrow: Marrow is normal in overall signal, without suspicious enhancement. Spinal cord: Visualized spinal cord has normal size and signal. No cerebellar tonsillar herniation. No abnormal intramedullary enhancement. Paraspinous soft tissues: No paravertebral masses or suspicious enhancement. Lower cervical spine fixation hardware is again seen anteriorly, C5 through C7. C2-3: Normal appearance. C3-4: The disc height is well-preserved. Loss of disc signal is seen at this level. Moderate disc osteophyte complex is seen. Moderate facet joint hypertrophy is seen. There is moderate to severe right-sided and mild left-sided neural foraminal narrowing. Minimal significant central canal narrowing is seen. The degree of right-sided neural foraminal narrowing has progressed compared to the prior images. C4-5: Mild loss of disc height is seen. Loss of disc signal is seen. A mild degree of generalized disc osteophyte complex is seen. Moderate facet joint hypertrophy is seen. There is moderate to severe right-sided and at least moderate left-sided neural foraminal narrowing. Moderate central canal narrowing is seen, with minimal mass effect upon spinal cord. When comparison is made with the prior images, these findings are similar. C5-6: There is postoperative change at this level. Gtwz-wi-nwuzntsc disc osteophyte complex is seen. Moderate facet joint hypertrophy is seen. There is moderate right-sided and qghk-ye-wkxbfhnj left-sided neural foraminal narrowing seen. No significant central canal narrowing is seen. The degree of right-sided neural foraminal narrowing is progressed compared to the prior. C6-7: Postoperative changes seen at this level. A mild degree of generalized disc osteophyte complex is seen. Mild facet joint hypertrophy is seen. No significant neural foraminal or central canal narrowing can be seen. Stable from the prior study. C7-T1: Mild loss of disc height is seen. Loss of disc signal is seen. A mild degree of generalized disc osteophyte complex is seen. No significant neural foraminal or central canal narrowing can be seen. When comparison is made with the prior images, these findings are similar. IMPRESSION: C5 through C7 fixation hardware is seen anteriorly. No abnormal enhancement is seen. Mild progression of degenerative change can be seen at C3-C4 and C5-C6, with progression of right-sided neural foraminal narrowing at these levels compared to the prior images. Dictated by: Drew Osborne M.D. on 06/29/2021 at 10:15 Approved by: Drew Osborne M.D. on 06/29/2021 at 10:22
--- NOTE | 2021-06-29 09:10 | DI.MRI.S_ITS ---
PROCEDURE: MR THORACIC SPINE WO/W CON INDICATIONS: Clinical concern for autonomic dysreflexia as cause of patient's symptoms TECHNIQUE: Noncontrast sagittal T1 spin echo and T2 fast spin echo, sagittal STIR, axial T1 and T2 fast spin echo through the thoracic spine. After the administration of contrast, axial and sagittal T1 spin echo with fat saturation through the thoracic spine. COMPARISON: [facility], MR, MR THORACIC SPINE WITH/WITHOUT CONTRAST, 01/16/2017, 19:57. [facility], MR, MR CERVICAL SPINE WO/W CON, 06/29/2021, 9:24. [facility], MR, MR THORACIC SPINE WITH/WITHOUT CONTRAST, 02/23/2018, 19:01. FINDINGS: Image quality: Excellent. Alignment and curvature: There is normal bony alignment. Marrow: Marrow is of normal overall signal. No acute vertebral body compression fractures. Spinal cord: Visualized spinal cord is of normal signal and size, without abnormal enhancement. Paraspinous soft tissues: No paravertebral masses or abnormal enhancement. Miscellaneous: Lower cervical spine fixation hardware can be seen. The previously seen focal degenerative change at T11-T12 is no longer seen, with resolution of the previously seen central disc protrusion. No significant neural foraminal or central canal narrowing can be seen within the thoracic spine. IMPRESSION: Thoracic spine within normal limits, without significant disc pathology, central canal narrowing, or neural foraminal narrowing. The previously seen focal degenerative change at T11-T12 has resolved, with interval regression of the previously seen central disc protrusion. Note is made of lower cervical spine fixation hardware. No masses or abnormal enhancement can be seen. Dictated by: Drew Osborne M.D. on 06/29/2021 at 10:10 Approved by: Drew Osborne M.D. on 06/29/2021 at 10:15
== END ==
PROVIDERS: Family Provider Nurse Practitioner; PCP Nurse Practitioner; Referring Provider Nurse Practitioner; Visit Provider Nurse Practitioner
DX: M47.812 Spondylosis without myelopathy or radiculopathy, cervical region (principal); M48.02 Spinal stenosis, cervical region; R42 Dizziness and giddiness; R00.1 Bradycardia, unspecified; Q07.00 Arnold-Chiari syndrome without spina bifida or hydrocephalus; G95.0 Syringomyelia and syringobulbia; R55 Syncope and collapse
CPT/HCPCS: 72156; 72157

== ENCOUNTER → 2021-07-20 16:26 | Outpatient (CLI) | payer MEDICARE, MEDICAID, SELFPAY ==
[2021-07-20 17:35] LABS: Appearance Urine UA SL CLOUDY; Bilirubin Urine UA NEGATIVE (NEGATIVE); Color Urine UA YELLOW; Glucose Urine UA NEGATIVE (Negative); Ketones Urine UA TRACE (NEGATIVE); Leukocyte Esterase Urine UA NEGATIVE (NEGATIVE); Nitrite Urine UA NEGATIVE (Negative); Occult Blood Urine UA TRACE-LYSED (Negative); Protein Urine UA TRACE (Negative); Specific Gravity Urine UA >=1.030 (1.000-1.035); Urobilinogen Urine UA 0.2 E.U./dL (0.2)
[2021-07-20 17:50] LABS: Alanine Aminotransferase 12 IU/L (<35); Albumin Globulin Ratio 1.4 (1.0-2.8); Alkaline Phosphatase 59 U/L (38-126); Aspartate Aminotransferase 23 IU/L (14-36); BUN Creatinine Ratio 13.3 (6-22); Bilirubin Total 0.5 mg/dL (0.2-1.3); Blood Urea Nitrogen 11 mg/dL (7-17); Calcium 9.1 mg/dL (8.4-10.2); Carbon Dioxide 29 mmol/L (22-32); Chloride 104 mmol/L (98-107); Estimated Glomerular Filt Rate > 60 mL/min (>60); Globulin 3.5 g/dL (1.7-4.1); Glucose 74 mg/dL (70-100); HEMOLYSIS < 15 (0-50); Potassium 4.5 mmol/L (3.4-5.1); Sodium 142 mmol/L (137-145); Total Protein 8.5 g/dL (6.3-8.2)
[2021-07-20 17:56] LABS: Bacteria Urine Moderate (10-30); RBC Urine 0-1/HPF (0-5/HPF); Squamous Epithelial Cell Urine 5-10 /HPF (0-5/HPF); WBC Urine 1-5/HPF (0-5/HPF)
[2021-07-20 17:57] LABS: Culture Indicated Urine Cult Not Indicated
[2021-07-20 18:08] LABS: Free T3, Triiodothyronine Free 3.02 pg/mL (2.77-5.27); Free T4, Direct Thyroxine 0.92 ng/dL (0.78-2.19)
[2021-07-20 18:22] LABS: Thyroid Stimulating Hormone 1.38 uIU/mL (0.47-4.68)
== END ==
PROVIDERS: Family Provider Nurse Practitioner; PCP Nurse Practitioner; Referring Provider Nurse Practitioner; Visit Provider Nurse Practitioner
DX: F32.A Depression, unspecified (principal); F41.1 Generalized anxiety disorder; R45.851 Suicidal ideations; Z79.899 Other long term (current) drug therapy; R30.0 Dysuria
CPT/HCPCS: 36415; 80053; 81001; 84439; 84443; 84481

== ENCOUNTER → 2022-01-20 11:44 | Outpatient (CLI) | payer MEDICARE, MEDICAID, SELFPAY ==
[2022-01-20 12:46] LABS: Add Manual Diff / Slide Review NO; Basophils Absolute Auto 100 /uL (0-100); Basophils Percent Auto 2.4 % (0-2); Eosinophils Absolute Auto 100 /uL (0-450); Eosinophils Percent Auto 2.5 % (2-4); Hematocrit 39.3 % (36-46); Hemoglobin 13.4 g/dL (12.0-16.0); Lymphocytes Absolute Auto 900 /uL (1100-4500); Lymphocytes Percent Auto 25.1 % (25-40); Mean Corpuscular HGB Conc 34.2 % (30-36); Mean Corpuscular Hemoglobin 31.6 PG (26-34); Mean Corpuscular Volume 92.3 fL (80-100); Monocytes Absolute Auto 200 /uL (0-900); Monocytes Percent Auto 5.9 % (3-14); Neutrophils Absolute Auto 2400 /uL (1500-7000); Neutrophils Percent Auto 64.1 % (50-75); Platelet Count 251 X10^3/uL (150-400); Red Blood Cell Count 4.26 X10^6/uL (4.0-5.2); Red Cell Distribution Width 12.9 % (11.6-14.8); White Blood Cell Count 3.8 X10^3/uL (4.5-11.0)
[2022-01-20 12:59] LABS: Alanine Aminotransferase 16 IU/L (<35); Albumin 4.7 g/dL (3.5-5.0); Albumin Globulin Ratio 1.5 (1.0-2.8); Alkaline Phosphatase 55 U/L (38-126); Aspartate Aminotransferase 21 IU/L (14-36); BUN Creatinine Ratio 12.3 (6-22); Bilirubin Total 0.5 mg/dL (0.2-1.3); Blood Urea Nitrogen 10 mg/dL (7-17); Calcium 9.3 mg/dL (8.4-10.2); Carbon Dioxide 29 mmol/L (22-32); Chloride 104 mmol/L (98-107); Cholesterol 187 mg/dL (140-199); Estimated Glomerular Filt Rate > 60 mL/min (>60); Globulin 3.1 g/dL (1.7-4.1); Glucose 91 mg/dL (70-100); HDL Cholesterol 62 mg/dL (40-60); HEMOLYSIS < 15 (0-50); LDL Cholesterol Calculated 114 mg/dL (<100); Potassium 5.1 mmol/L (3.4-5.1); Sodium 143 mmol/L (137-145); Total Protein 7.8 g/dL (6.3-8.2); Triglycerides 57 mg/dL (35-150)
[2022-01-20 13:14] LABS: Free T4, Direct Thyroxine 0.91 ng/dL (0.78-2.19)
[2022-01-20 13:27] LABS: Thyroid Stimulating Hormone 2.48 uIU/mL (0.47-4.68)
[2022-01-20 19:31] LABS: Follicle Stimulating Hormone 16.3 mIU/mL
== END ==
PROVIDERS: Family Provider Nurse Practitioner; PCP Nurse Practitioner; Referring Provider Nurse Practitioner; Visit Provider Nurse Practitioner
DX: Z00.00 Encounter for general adult medical examination without abnormal findings (principal); E78.5 Hyperlipidemia, unspecified; Z13.1 Encounter for screening for diabetes mellitus; E23.6 Other disorders of pituitary gland; Z13.29 Encounter for screening for other suspected endocrine disorder
CPT/HCPCS: 36415; 80053; 80061; 83001; 84439; 84443; 84481; 85025

== ENCOUNTER → 2022-01-31 15:20 | Outpatient (CLI) | payer MEDICARE, MEDICAID, SELFPAY | PROVIDERS: Family Provider Nurse Practitioner; PCP Nurse Practitioner; Referring Provider Nurse Practitioner; Visit Provider Nurse Practitioner | DX: Z01.818 Encounter for other preprocedural examination (principal) | CPT/HCPCS: 93005 ==

== ENCOUNTER → 2022-04-06 13:23 | Outpatient (CLI) | payer MEDICARE, MEDICAID, SELFPAY ==
--- NOTE | 2022-04-06 13:25 | DI.US.S_ITS ---
PROCEDURE: US PELVIC COMPLETE INDICATIONS: PAIN AND CRAMPING POSTCOITAL TECHNIQUE: Real-time scanning was performed of the pelvic organs, with image documentation. Additional endovaginal scanning was necessary due to incomplete visualization of the adnexal and endometrial structures by transabdominal scanning. COMPARISON: [facility], US, US PELVIC COMPLETE, 07/13/2021, 13:59. FINDINGS: Uterus: Uterus is anteverted and normal in size at 7.1 x 4.3 x 3.2 cm. The myometrium is heterogeneous. The endometrium measures 2.9 mm combined thickness. The IUD is present within the uterine fundus. There is some oblique angulation of the cross arms with the right cross arm angled posteriorly and the left cross arm angled anteriorly it is unclear whether these are within the endometrial cavity or within the myometrium proper. Ovaries: The right ovary measures 3.3 x 2.2 x 1.0 cm, with a calculated ovarian volume of 3.9 cc. The left ovary measures 1.8 x 1.7 x 1.0 cm, with a calculated ovarian volume of 1.6 cc. The ovaries have a normal sonographic appearance. Less than 12 follicles can be seen in each ovary. No adnexal masses are seen. Other: No pathologic free abdominal or pelvic fluid. IMPRESSION: 1. IUD within the uterine fundus. The cross arms are most likely within the endometrial cavity; however given the slight angulation as described above, extension into the myometrium could be considered in the differential. No other sonographic abnormalities. We strive to produce accurate, complete, and clear reports of imaging services. To assist us in improving patient care, this report was composed using standard report templates and voice recognition software. Therefore, it may contain abnormal punctuation, insertions and/or omissions. Occasional wrong-word or sound-alike substitutions may occur. Though we review the report and make efforts to correct it, we do recommend that the report be read carefully in proper context to recognize any text inaccuracies. Dictated by: Claudia Byrne M.D. on 04/06/2022 at 16:55 Approved by: Claudia Byrne M.D. on 04/06/2022 at 16:59
--- NOTE | 2022-04-06 13:25 | DI.US.S_ITS ---
LIMITED ULTRASOUND OF LEFT BREAST: 04/06/2022 CLINICAL: Palpable focal left breast lump and lateral breast pain. Comparison is made to exams dated: 04/06/2022 mammogram, 08/24/2019 mammogram - [facility], 10/29/2018 mammogram, and 04/23/2018 mammogram - [facility]. Color flow and real-time ultrasound of the left breast 12-3 o'clock and 6 o'clock regions were performed. Kwon scale images of the real-time examination were reviewed. There is a 0.3 cm x 0.3 cm x 0.2 cm oval cyst in the left breast at 1 o'clock middle depth 2 cm from the nipple. This oval cyst displays internal echoes. This correlates as palpated. Color flow imaging demonstrates that there is no vascularity present. IMPRESSION: BENIGN There is no sonographic evidence of malignancy. The 0.3 cm oval cyst in the left breast corresponding to the palpable abnormality is benign. Exam findings were conveyed to the patient. Patient is advised to monitor for significant change. Clinical follow-up as needed. Right breast ultrasound for focal pain could not be preformed today and will be schedule to return on another day. This exam was interpreted at Station ID: [id number]. Electronically Signed By: Jose Cat M.D. [facility] [place]/:04/06/2022 14:43:32 letter sent: Normal Exam Ultrasound BI-RADS: 2 Benign
--- NOTE | 2022-04-06 13:25 | DI.MG.S_ITS ---
BILATERAL DIGITAL DIAGNOSTIC MAMMOGRAM 3D/2D: 04/06/2022 CLINICAL: Left breast mass and Bilateral tenderness. Comparison is made to exams dated: 08/24/2019 mammogram - [facility], 04/11/2018 mammogram, and 10/29/2018 mammogram - [facility]. Both breasts are extremely dense, which lowers the sensitivity of mammography (category d />75% glandular tissue). No significant masses, calcifications, or other findings are seen in either breast. IMPRESSION: INCOMPLETE: NEEDS ADDITIONAL IMAGING EVALUATION No mammographic evidence of malignancy. A targeted ultrasound is recommended and will immediately follow. Based on Tyrer-Cuzick model (a risk assessment model), the patient's lifetime risk is 22.3% and her 10 year risk is 5.0%. If a patient has an elevated risk, a more comprehensive evaluation should be considered and/or a referral to a genetic counselor. The [employer] [employer], [employer], and NCCN Guidelines advise the consideration of Breast MRI as an adjunct to screening mammography in patients whose Lifetime risk to develop breast cancer is 20% or higher. This exam was interpreted at Station ID: [id number]. NOTE: For mammograms, a report in lay terms will be sent to the patient. Approximately 15% of breast malignancies will not be visualized mammographically. In the management of a palpable breast mass, a negative mammogram must not discourage biopsy of a clinically suspicious lesion. Electronically Signed By: Jose Cat M.D. [facility]/:04/06/2022 14:18:33 ACR BI-RADS Category 0: Incomplete [id number]
== END ==
PROVIDERS: Family Provider Nurse Practitioner; PCP Nurse Practitioner; Referring Provider Registered Nurse Diabetes Educator; Visit Provider Registered Nurse Diabetes Educator
DX: N60.02 Solitary cyst of left breast (principal); R92.2 Inconclusive mammogram; N64.4 Mastodynia; R10.2 Pelvic and perineal pain; Z97.5 Presence of (intrauterine) contraceptive device
CPT/HCPCS: 76642; 76830; 76856; 77066; G0279

== ENCOUNTER → 2022-04-07 14:09 | Outpatient (CLI) | payer MEDICARE, MEDICAID, SELFPAY | PROVIDERS: Family Provider Nurse Practitioner; PCP Nurse Practitioner; Visit Provider Nurse Practitioner | DX: R39.89 Other symptoms and signs involving the genitourinary system (principal) | CPT/HCPCS: 87210 ==

== ENCOUNTER → 2022-04-27 16:02 | Outpatient (CLI) | payer MEDICARE, MEDICAID, SELFPAY ==
[2022-04-27 17:03] LABS: Add Manual Diff / Slide Review NO; Basophils Absolute Auto 100 /uL (0-100); Basophils Percent Auto 1.2 % (0-2); Eosinophils Absolute Auto 100 /uL (0-450); Eosinophils Percent Auto 1.6 % (2-4); Hematocrit 37.5 % (36-46); Hemoglobin 13.2 g/dL (12.0-16.0); Lymphocytes Absolute Auto 1500 /uL (1100-4500); Lymphocytes Percent Auto 27.1 % (25-40); Mean Corpuscular HGB Conc 35.1 % (30-36); Mean Corpuscular Hemoglobin 31.9 PG (26-34); Mean Corpuscular Volume 90.9 fL (80-100); Monocytes Absolute Auto 400 /uL (0-900); Monocytes Percent Auto 6.9 % (3-14); Neutrophils Absolute Auto 3400 /uL (1500-7000); Neutrophils Percent Auto 63.2 % (50-75); Platelet Count 251 X10^3/uL (150-400); Red Blood Cell Count 4.13 X10^6/uL (4.0-5.2); Red Cell Distribution Width 13.2 % (11.6-14.8); White Blood Cell Count 5.4 X10^3/uL (4.5-11.0)
[2022-04-27 17:22] LABS: Alanine Aminotransferase 13 IU/L (<35); Albumin 4.3 g/dL (3.5-5.0); Albumin Globulin Ratio 1.4 (1.0-2.8); Alkaline Phosphatase 46 U/L (38-126); Aspartate Aminotransferase 19 IU/L (14-36); BUN Creatinine Ratio 13.1 (6-22); Bilirubin Total 0.5 mg/dL (0.2-1.3); Blood Urea Nitrogen 8 mg/dL (7-17); Calcium 8.6 mg/dL (8.4-10.2); Carbon Dioxide 24 mmol/L (22-32); Chloride 104 mmol/L (98-107); Estimated Glomerular Filt Rate > 60 mL/min (>60); Glucose 76 mg/dL (70-100); HEMOLYSIS < 15 (0-50); Potassium 4.3 mmol/L (3.4-5.1); Sodium 137 mmol/L (137-145); Total Protein 7.3 g/dL (6.3-8.2)
[2022-04-27 17:35] LABS: Free T3, Triiodothyronine Free 3.16 pg/mL (2.77-5.27); Free T4, Direct Thyroxine 0.87 ng/dL (0.78-2.19)
[2022-04-27 17:49] LABS: Thyroid Stimulating Hormone 1.14 uIU/mL (0.47-4.68)
== END ==
PROVIDERS: Family Provider Nurse Practitioner; PCP Nurse Practitioner; Referring Provider Nurse Practitioner; Visit Provider Nurse Practitioner
DX: K12.2 Cellulitis and abscess of mouth (principal); R68.89 Other general symptoms and signs; R11.2 Nausea with vomiting, unspecified; Z01.812 Encounter for preprocedural laboratory examination
CPT/HCPCS: 36415; 80053; 84439; 84443; 84481; 85025

== ENCOUNTER → 2022-04-27 18:39 | Outpatient (CLI) | payer MEDICARE, MEDICAID, SELFPAY ==
--- NOTE | 2022-04-27 18:40 | DI.MRI.S_ITS ---
PROCEDURE: MR LUMBAR SPINE WO/W CON INDICATIONS: saddle paresthesia x3-4 weeks TECHNIQUE: Noncontrast sagittal T1 spin echo and T2 fast echo, sagittal STIR, and T2 fast spin echo through the lumbar spine. In cases with scoliosis, additional coronal T2 fast spin echo may be performed. COMPARISON: [facility], MR, MR LUMBAR SPINE WITH/WITHOUT CONTRAST, 02/23/2018, 19:01. FINDINGS: Image quality: Excellent. Alignment and Curvature: No plain films are available for comparison, for numbering purposes. Thus, for the purposes of this examination, 5 lumbar type vertebral bodies will be presumed, as denoted on the montage panel. This should be confirmed and correlated with plain films, prior to any lumbar spinal intervention. 2 mm of retrolisthesis of L2 on L3, L4 on L5, and L5 on S1. Bone Marrow: Marrow is of normal overall signal. No acute vertebral body compression fractures. Mild reactive signal throughout the endplates of the lumbar and lower thoracic spine. Spinal Cord: Conus medullaris terminates at the lower L2 level. Visualized cord demonstrates normal signal and size. Paraspinous Soft Tissues: No paravertebral masses. T12-L1: Moderate disc height loss and desiccation. No significant canal, or foraminal stenosis. No significant change. L1-L2: Moderate disc height loss and desiccation. Mild diffuse disc bulge with small superimposed left paracentral protrusion. Mild facet hypertrophy. Mild canal stenosis. No foraminal stenosis. No significant change. L2-L3: Mild disc height loss and desiccation. Mild diffuse disc bulge. Mild facet and ligamentum flavum hypertrophy. Mild canal stenosis. Mild bilateral foraminal stenosis. No significant change. L3-L4: Mild facet and ligamentum flavum hypertrophy. Mild epidural lipomatosis. Mild diffuse disc bulge. Mild canal stenosis. Mild bilateral foraminal stenosis. L4-L5: Mild disc desiccation and diffuse disc bulge. Mild facet and ligamentum flavum hypertrophy. Mild epidural lipomatosis. Mild canal stenosis. Mild bilateral foraminal stenosis. L5-S1: Moderate disc desiccation. Mild disc height loss and diffuse disc bulge with superimposed small central protrusion. Mild bilateral facet hypertrophy. Mild canal stenosis. No foraminal stenosis. No significant change. IMPRESSION: 1. Multilevel degenerative disc and facet disease, as well as ligamentum flavum hypertrophy and epidural lipomatosis. 2. Mild multilevel canal and foraminal stenoses. No neural impingement. 3. 5 lumbar type vertebral bodies were presumed for the current report. Plain films of the lumbar spine are recommended for confirmation, prior to any lumbar spinal intervention. Dictated by: Maryana Hogan M.D. on 04/28/2022 at 10:54 Transcribed by: JENIFFER on 04/28/2022 at 11:27 Approved by: Maryana Hogan M.D. on 04/28/2022 at 16:49
== END ==
PROVIDERS: Family Provider Nurse Practitioner; PCP Nurse Practitioner; Referring Provider Nurse Practitioner; Visit Provider Nurse Practitioner
DX: Z01.812 Encounter for preprocedural laboratory examination (principal); M51.36 Other intervertebral disc degeneration, lumbar region; M51.37 Other intervertebral disc degeneration, lumbosacral region; M48.061 Spinal stenosis, lumbar region without neurogenic claudication; M48.07 Spinal stenosis, lumbosacral region; R20.2 Paresthesia of skin; K12.2 Cellulitis and abscess of mouth; R68.89 Other general symptoms and signs; R11.2 Nausea with vomiting, unspecified
CPT/HCPCS: 36415; 72158; 80053; 84439; 84443; 84481; 85025; A9579

== ENCOUNTER → 2022-06-17 15:09 | Outpatient (CLI) | payer MEDICARE, MEDICAID, SELFPAY ==
--- NOTE | 2022-06-17 15:10 | DI.MRI.S_ITS ---
PROCEDURE: MR CERVICAL SPINE WO CON INDICATIONS: worsening pain and saddle anesthesia TECHNIQUE: Noncontrast sagittal T1 spin echo and T2 fast spin echo, sagittal STIR, foraminal oblique sagittal T2 fast spin echo, and axial gradient echo or T2 fast spin echo through the cervical spine. COMPARISON: [facility], MR, MR CERVICAL SPINE WO/W CON, 06/29/2021, 9:24. [facility], MR, MR CERVICAL SPINE WO CON, 09/23/2019, 16:15. [facility], MR, MR HEAD/BRAIN WO CON, 06/17/2022, 15:34. [facility], MR, MR THORACIC SPINE WO CON, 06/17/2022, 15:34. [facility], MR, MR CERVICAL SPINE WO CON, 02/05/2021, 18:19. FINDINGS: Image quality: This examination is limited by involuntary motion artifact. There is artifact associated with the metallic hardware. Alignment and Curvature: There is overall straightening of the normal cervical lordosis. Minimal retrolisthesis can be seen at C4-C5. Bone Marrow: Marrow demonstrates normal overall signal. Spinal Cord: Visualized spinal cord has normal size and signal. Low lying cerebellar tonsils can be seen. Prior suboccipital craniectomy change can be seen Paraspinous Soft Tissues: No paravertebral masses. Prevertebral soft tissues are normal in thickness. Anterior fixation hardware can be seen C5 through C7. C2-C3: The disc height is well-preserved. Loss of disc signal is seen at this level. No significant neural foraminal or central canal narrowing can be seen. When comparison is made with the prior images, these findings are similar. C3-C4: The disc height is well-preserved. Loss of disc signal is seen at this level. Mild to moderate disc osteophyte complex is seen. There is at least moderate right-sided and [id number] left-sided facet hypertrophy. There is at least moderate right-sided and moderate left-sided neural foraminal narrowing. Mild to moderate central canal narrowing is seen. No significant change from the prior. C4-C5: Mild loss of disc height is seen. Loss of disc signal is seen. Moderate generalized disc osteophyte complex is seen. There is a central disc osteophyte protrusion seen. At least moderate facet hypertrophy can be seen at this level. Moderate to severe bilateral neural foraminal narrowing can be seen. At least moderate central canal narrowing is seen. Associated mass effect can be seen upon the ventral spinal cord. These imaging findings have progressed compared to the prior study. C5-C6: Postoperative changes are seen at this level. Mild bilateral neural foraminal narrowing is seen. No significant central canal narrowing can be seen. When comparison is made with the prior images, these findings are similar. C6-C7: There are postoperative changes at this level. No significant neural foraminal or central canal narrowing can be seen. No significant change from the prior. C7-T1: At least moderate loss of disc height and disc signal can be seen. There is mild to moderate left-sided and no right-sided neural foraminal narrowing. No central canal narrowing is seen. When comparison is made with the prior images, these findings are similar. IMPRESSION: Progression of degenerative change seen at C4-C5, now with at least moderate central canal narrowing, with associated mass effect upon the ventral spinal cord. Multiple levels of degenerative change are seen elsewhere, which appear similar to the prior images. Chiari 1 malformation, with prior suboccipital craniectomy. Anterior fixation hardware can be seen C5 through C7. Dictated by: Drew Osborne M.D. on 06/17/2022 at 16:42 Approved by: Drew Osborne M.D. on 06/17/2022 at 16:48
--- NOTE | 2022-06-17 15:10 | DI.MRI.S_ITS ---
PROCEDURE: MR THORACIC SPINE WO CON INDICATIONS: worsening pain and saddle anesthesia TECHNIQUE: Noncontrast sagittal T1 spine echo and T2 fast spin echo, sagittal STIR, and T2 fast spin echo through the thoracic spine. COMPARISON: [facility], MR, MR THORACIC SPINE WITH/WITHOUT CONTRAST, 02/23/2018, 19:01. [facility], MR, MR THORACIC SPINE WITH/WITHOUT CONTRAST, 01/16/2017, 19:57. [facility], MR, MR THORACIC SPINE WO/W CON, 06/29/2021, 9:24. [facility], MR, MR HEAD/BRAIN WO CON, 06/17/2022, 15:34. [facility], MR, MR CERVICAL SPINE WO CON, 06/17/2022, 15:34. FINDINGS: Image quality: This examination is limited by involuntary motion artifact. Alignment and Curvature: Accentuated thoracic kyphosis is seen. No focal AP alignment abnormality is seen. Bone Marrow: Marrow is of normal overall signal. No acute vertebral body compression fractures. Spinal Cord: Visualized spinal cord is normal in size and signal. Paraspinous Soft Tissues: No paravertebral masses. Miscellaneous: No significant focal disc pathology can be seen. No significant neural foraminal or central canal narrowing can be seen. IMPRESSION: No significant thoracic spine MRI abnormality can be seen. Dictated by: Drew Osborne M.D. on 06/17/2022 at 16:49 Approved by: Drew Osborne M.D. on 06/17/2022 at 16:52
--- NOTE | 2022-06-17 15:10 | DI.MRI.S_ITS ---
PROCEDURE: MR HEAD/BRAIN WO CON INDICATIONS: worsening pain and saddle anesthesia, weakness of arms, legs TECHNIQUE: Noncontrast axial T1 spin echo, axial T2 fast spin echo, sagittal and axial FLAIR, coronal T2 fast spin echo, axial gradient echo, axial diffusion and ADC through the brain. COMPARISON: [facility], MR, MR BRAIN WITH/WITHOUT CONTRAST, 12/29/2016, 18:27. [facility], MR, MR BRAIN WITH/WITHOUT CONTRAST, 03/23/2018, 20:30. [facility], MR, MR THORACIC SPINE WO CON, 06/17/2022, 15:34. [facility], MR, MR CERVICAL SPINE WO CON, 06/17/2022, 15:34. [facility], CT, CT HEAD/BRAIN WO CON, 11/02/2020, 16:24. FINDINGS: Image quality: There is susceptibility artifact associated with the right ear, likely related to earrings. CSF Spaces: Basal cisterns are patent. No extra-axial fluid collections. Ventricles are normal in size and shape. Brain: No intracranial masses or hemorrhage. Kwon/white matter interface is normal. Brainstem appears normal. Diffusion-weighted images demonstrate no acute ischemic insult. No chronic ischemic insults. Normal intravascular flow voids are present. Low lying cerebral tonsils are again seen. Skull and face: Suboccipital craniectomy change can be seen. Calvarium has normal marrow signal. Orbits appear normal. Sinuses: Sinuses and mastoids are clear. Mild leftward nasal septal deviation can be seen. IMPRESSION: Stable study, without a cause of the patient's presenting history identified. No findings of acute or subacute infarction can be seen. Chiari 1 malformation, with prior suboccipital craniectomy. Dictated by: Drew Osborne M.D. on 06/17/2022 at 16:39 Approved by: Drew Osborne M.D. on 06/17/2022 at 16:42
== END ==
PROVIDERS: Family Provider Nurse Practitioner; PCP Nurse Practitioner; Referring Provider Nurse Practitioner; Visit Provider Nurse Practitioner
DX: Q07.00 Arnold-Chiari syndrome without spina bifida or hydrocephalus (principal); M47.812 Spondylosis without myelopathy or radiculopathy, cervical region; M48.02 Spinal stenosis, cervical region; M54.2 Cervicalgia; R20.0 Anesthesia of skin; M79.621 Pain in right upper arm; M79.622 Pain in left upper arm; R29.898 Other symptoms and signs involving the musculoskeletal system; M79.661 Pain in right lower leg; M79.662 Pain in left lower leg; G89.4 Chronic pain syndrome
CPT/HCPCS: 70551; 72141; 72146

== ENCOUNTER → 2022-07-12 15:57 | Outpatient (CLI) | payer MEDICARE, MEDICAID, SELFPAY ==
[2022-07-12 18:17] LABS: Appearance Urine UA CLEAR; Bilirubin Urine UA 1+ (NEGATIVE); Color Urine UA YELLOW; Glucose Urine UA NEGATIVE (Negative); Ketones Urine UA NEGATIVE (NEGATIVE); Leukocyte Esterase Urine UA NEGATIVE (NEGATIVE); Nitrite Urine UA NEGATIVE (Negative); Occult Blood Urine UA NEGATIVE (Negative); Protein Urine UA NEGATIVE (Negative); Specific Gravity Urine UA <=1.005 (1.000-1.035)
[2022-07-12 18:24] LABS: pH Urine UA 6.5 (4.5-8.0)
[2022-07-12 18:30] LABS: Ictotest Urine Negative (Negative)
[2022-07-12 18:31] LABS: Bacteria Urine None Seen; Culture Indicated Urine Cult Not Indicated; RBC Urine None Seen (0-5/HPF); Squamous Epithelial Cell Urine 1-5 /HPF (0-5/HPF); WBC Urine 0-1/HPF (0-5/HPF)
== END ==
PROVIDERS: Family Provider Nurse Practitioner; PCP Nurse Practitioner; Referring Provider Nurse Practitioner; Visit Provider Nurse Practitioner
DX: R39.89 Other symptoms and signs involving the genitourinary system (principal)
CPT/HCPCS: 81001

== ENCOUNTER → 2022-09-13 14:41 | Outpatient (CLI) | payer MEDICARE, MEDICAID, SELFPAY ==
[2022-09-13 15:26] LABS: Hematocrit 35.6 % (36-46); Hemoglobin 12.5 g/dL (12.0-16.0); Mean Corpuscular Hemoglobin 32.2 PG (26-34); Mean Corpuscular Volume 92.3 fL (80-100); Platelet Count 198 X10^3/uL (150-400); Red Blood Cell Count 3.86 X10^6/uL (4.0-5.2); Red Cell Distribution Width 12.8 % (11.6-14.8); White Blood Cell Count 5.3 X10^3/uL (4.5-11.0)
[2022-09-13 15:41] LABS: INR 1.1 (0.9-1.3); Prothrombin Time 12.1 SECONDS (10.1-12.7)
[2022-09-13 15:50] LABS: Alanine Aminotransferase 31 IU/L (<35); Albumin 4.1 g/dL (3.5-5.0); Albumin Globulin Ratio 1.6 (1.0-2.8); Alkaline Phosphatase 57 U/L (38-126); Aspartate Aminotransferase 35 IU/L (14-36); BUN Creatinine Ratio 11.1 (6-22); Bilirubin Total 0.4 mg/dL (0.2-1.3); Blood Urea Nitrogen 7 mg/dL (7-17); Calcium 8.7 mg/dL (8.4-10.2); Carbon Dioxide 28 mmol/L (22-32); Chloride 103 mmol/L (98-107); Estimated Glomerular Filt Rate > 60 mL/min (>60); Globulin 2.6 g/dL (1.7-4.1); Glucose 98 mg/dL (70-100); HEMOLYSIS < 15 (0-50); Sodium 137 mmol/L (137-145); Total Protein 6.7 g/dL (6.3-8.2)
== END ==
PROVIDERS: Family Provider Nurse Practitioner; PCP Nurse Practitioner; Referring Provider Nurse Practitioner; Visit Provider Nurse Practitioner
DX: Z01.818 Encounter for other preprocedural examination (principal)
CPT/HCPCS: 36415; 80053; 85027; 85610; 93005

== ENCOUNTER → 2022-09-14 16:51 | Outpatient (CLI) | payer MEDICARE, SELFPAY ==
[2022-09-14 17:38] LABS: Appearance Urine UA CLEAR; Bilirubin Urine UA NEGATIVE (NEGATIVE); Color Urine UA YELLOW; Glucose Urine UA NEGATIVE (Negative); Ketones Urine UA NEGATIVE (NEGATIVE); Leukocyte Esterase Urine UA NEGATIVE (NEGATIVE); Nitrite Urine UA NEGATIVE (Negative); Occult Blood Urine UA NEGATIVE (Negative); Protein Urine UA NEGATIVE (Negative); Specific Gravity Urine UA <=1.005 (1.000-1.035)
[2022-09-14 17:39] LABS: pH Urine UA 6.5 (4.5-8.0)
[2022-09-14 18:01] LABS: Bacteria Urine None Seen; Culture Indicated Urine Cult Not Indicated; RBC Urine None Seen (0-5/HPF); Squamous Epithelial Cell Urine 0-1 /HPF (0-5/HPF); WBC Urine None Seen (0-5/HPF)
== END ==
PROVIDERS: Family Provider Nurse Practitioner; PCP Nurse Practitioner; Referring Provider Nurse Practitioner; Visit Provider Nurse Practitioner
DX: Z01.818 Encounter for other preprocedural examination (principal)
CPT/HCPCS: 81001

== ENCOUNTER → 2022-11-14 15:32 | Outpatient (CLI) | payer MEDICARE, MEDICAID, SELFPAY ==
--- NOTE | 2022-11-14 15:40 | DI.RAD.S_ITS ---
PROCEDURE: XR CERVICAL SPINE 2V OR 3V INDICATIONS: Cervical radiculopathy TECHNIQUE: 4 view(s) of the cervical spine were acquired. COMPARISON: [facility], CR, XR CERVICAL SPINE 4V OR 5V, 06/21/2021, 13:23. FINDINGS: Bones: No fractures or dislocations to the C7-T1 level. The lateral masses of C1 appear intact on the odontoid view. No suspicious bony lesions. Anterior fusion is present from C4 through C7. Hardware is intact without hardware fracture or periprosthetic lucency to suggest loosening. Alignment is stable. Multilevel uncovertebral hypertrophy is present. Soft tissues: No prevertebral soft tissue swelling. IMPRESSION: Multilevel anterior fusion with uncovertebral arthropathy. Dictated by: Kylie Diana M.D. on 11/14/2022 at 17:43 Approved by: Kylie Diana M.D. on 11/14/2022 at 17:44
== END ==
PROVIDERS: Family Provider Nurse Practitioner; PCP Nurse Practitioner; Referring Provider Neurological Surgery; Visit Provider Neurological Surgery
DX: M47.22 Other spondylosis with radiculopathy, cervical region (principal); Z98.1 Arthrodesis status
CPT/HCPCS: 72040

== ENCOUNTER → 2022-12-01 15:37 | Outpatient (CLI) | payer MEDICARE, MEDICAID, SELFPAY ==
--- NOTE | 2022-12-01 15:38 | DI.CT.S_ITS ---
PROCEDURE: CT CHEST ABD PEL W CON INDICATIONS: unexplained weight loss TECHNIQUE: After the administration of oral and intravenous contrast, axial sections acquired from the supraclavicular neck to the pubic symphysis. Coronal and sagittal reformats were performed. For radiation dose reduction, the following was used: automated exposure control, adjustment of mA and/or kV according to patient size. COMPARISON: [facility], CT, CT KIDNEY URETER BLADDER (KUB), 10/07/2019, 15:37. FINDINGS: Image quality: Good Lungs and pleura: No dense consolidation, pleural effusion. Mild areas of scarring/atelectasis. There are granulomas, for example in the left lower lobe (6/64). No pulmonary nodule identified that requires follow-up imaging per Fleischner guidelines. If the patient is considered at risk for lung cancer, consider enrollment in lung cancer screening imaging. Mediastinum, heart, and esophagus: Small amount of possible reflux in the distal esophagus. Heart size is within normal limits. No pathologic adenopathy by size criteria. Chest wall and thyroid: Thyroid is unremarkable. Chest wall is unremarkable. Solid organs: There are liver cysts. Subcentimeter lesions are too small to characterize, probably also cysts and areas of focal fat. Prominent diameter CBD, at the upper limit of normal measuring 4-5 millimeters. No pathologic pancreatic ductal dilation. No splenomegaly. No adrenal nodules. No hydronephrosis. Vessels and lymph nodes: The main portal vein appears patent. There is no abdominal aortic aneurysm. There is no pathologic lymphadenopathy by size criteria. Bowel and peritoneum: No evidence of small bowel obstruction. Fecal loading is moderate to large. In the setting with weight loss, consider correlation with age-appropriate colonoscopy results. Body wall: Unremarkable Pelvis: Bladder is unremarkable. The reproductive organs are not well evaluated on this study. There are presumed uterine fibroids. Consider ultrasound if there is concern. Bones: Degenerative changes, no acute or suspicious osseous finding. Partially seen cervical fusion hardware. IMPRESSION: No evidence disseminated metastatic disease identified in the chest, abdomen, or pelvis. No acute pathology identified. Moderate to large fecal loading. Other incidental and nonacute findings described above. Dictated by: Randal De La Cruz M.D. on 12/02/2022 at 8:42 Approved by: Randal De La Cruz M.D. on 12/02/2022 at 8:50
== END ==
PROVIDERS: Family Provider Nurse Practitioner; PCP Nurse Practitioner; Referring Provider Nurse Practitioner; Visit Provider Nurse Practitioner
DX: R63.4 Abnormal weight loss (principal); K76.89 Other specified diseases of liver
CPT/HCPCS: 71260; 74177; Q9967

== ENCOUNTER → 2022-12-28 13:27 | Outpatient (CLI) | payer MEDICARE, MEDICAID, SELFPAY ==
--- NOTE | 2022-12-28 13:30 | DI.RAD.S_ITS ---
PROCEDURE: XR THORACIC SPINE 3V INDICATIONS: Known lumbar disc disease TECHNIQUE: 3 views of the thoracic spine were acquired. COMPARISON: [facility], MR, MR THORACIC SPINE WO CON, 06/17/2022, 15:34. FINDINGS: Bones: No fractures or dislocations. No suspicious bony lesions. Mild degenerative disc disease scattered in thoracic spine. 12 pairs of ribs are noted, and appear intact where visualized. Soft tissues: No paravertebral stripe thickening. IMPRESSION: Mild degenerative disc disease. Dictated by: Cande Perez M.D. on 12/28/2022 at 14:41 Approved by: Cande Perez M.D. on 12/28/2022 at 14:42
--- NOTE | 2022-12-28 13:30 | DI.RAD.S_ITS ---
PROCEDURE: XR LUMBAR SPINE MIN 4V INDICATIONS: Known lumbar disc disease TECHNIQUE: 5 views of the lumbar spine were acquired, including bilateral oblique views. COMPARISON: [facility], MR, MR LUMBAR SPINE WO/W CON, 04/27/2022, 18:51. [facility], CR, XR LUMBAR SPINE 2 OR 3 VIEWS, 06/16/2022, 13:47. FINDINGS: Bones: 5 nonrib-bearing vertebrae are present. There is normal bony alignment. No vertebral body compression fractures. No suspicious bony lesions. Mild degenerative disc disease at L1-L2, L2-L3, L3-L4 and L4-L5 Soft tissues: Overlying bowel gas pattern is normal. No suspicious soft tissue calcifications. Oblique images: No pars defects. IMPRESSION: Mild degenerative disc disease in lumbar spine. Dictated by: Cande Perez M.D. on 12/28/2022 at 14:39 Approved by: Cande Perez M.D. on 12/28/2022 at 14:41
[2022-12-28 14:55] LABS: Add Manual Diff / Slide Review NO; Basophils Absolute Auto 100 /uL (0-100); Basophils Percent Auto 0.9 % (0-2); Eosinophils Absolute Auto 100 /uL (0-450); Eosinophils Percent Auto 1.3 % (2-4); Hematocrit 39.2 % (36-46); Hemoglobin 13.7 g/dL (12.0-16.0); Lymphocytes Absolute Auto 1800 /uL (1100-4500); Lymphocytes Percent Auto 21.4 % (25-40); Mean Corpuscular Hemoglobin 32.1 PG (26-34); Mean Corpuscular Volume 91.6 fL (80-100); Monocytes Absolute Auto 500 /uL (0-900); Monocytes Percent Auto 6.4 % (3-14); Neutrophils Absolute Auto 5900 /uL (1500-7000); Platelet Count 301 X10^3/uL (150-400); Red Blood Cell Count 4.28 X10^6/uL (4.0-5.2); Red Cell Distribution Width 12.8 % (11.6-14.8); White Blood Cell Count 8.4 X10^3/uL (4.5-11.0)
[2022-12-28 15:05] LABS: Alanine Aminotransferase 13 IU/L (<35); Albumin 4.8 g/dL (3.5-5.0); Albumin Globulin Ratio 1.4 (1.0-2.8); Alkaline Phosphatase 58 U/L (38-126); Aspartate Aminotransferase 24 IU/L (14-36); BUN Creatinine Ratio 17.7 (6-22); Bilirubin Total 0.4 mg/dL (0.2-1.3); Blood Urea Nitrogen 11 mg/dL (7-17); Calcium 9.6 mg/dL (8.4-10.2); Carbon Dioxide 24 mmol/L (22-32); Chloride 108 mmol/L (98-107); Estimated Glomerular Filt Rate > 60 mL/min (>60); Globulin 3.4 g/dL (1.7-4.1); Glucose 102 mg/dL (70-100); HEMOLYSIS < 15 (0-50); Sodium 137 mmol/L (137-145); Total Protein 8.2 g/dL (6.3-8.2)
[2022-12-28 15:19] LABS: HEMOLYSIS < 15 (0-50); Iron 101 ug/dL (37-170)
[2022-12-28 15:31] LABS: Percent Iron Saturation 30 % (15-50); Total Iron Binding Capacity 341 ug/dL (265-497); Transferrin 296 mg/dL (206-381)
[2022-12-28 15:40] LABS: Appearance Urine UA CLEAR; Bilirubin Urine UA 1+ (NEGATIVE); Color Urine UA YELLOW; Glucose Urine UA NEGATIVE (Negative); Ketones Urine UA 1+ (NEGATIVE); Leukocyte Esterase Urine UA NEGATIVE (NEGATIVE); Nitrite Urine UA NEGATIVE (Negative); Occult Blood Urine UA NEGATIVE (Negative); Protein Urine UA 1+ (Negative); Specific Gravity Urine UA 1.025 (1.000-1.035)
[2022-12-28 15:40] LABS: Free T3, Triiodothyronine Free 3.12 pg/mL (2.77-5.27); Free T4, Direct Thyroxine 0.96 ng/dL (0.78-2.19)
[2022-12-28 15:53] LABS: Thyroid Stimulating Hormone 3.41 uIU/mL (0.47-4.68)
[2022-12-28 16:01] LABS: Bacteria Urine Few (2-10); Ictotest Urine Negative (Negative); RBC Urine None Seen (0-5/HPF); Squamous Epithelial Cell Urine 0-1 /HPF (0-5/HPF); WBC Urine None Seen (0-5/HPF)
[2022-12-28 16:02] LABS: Culture Indicated Urine Cult Not Indicated
== END ==
PROVIDERS: Family Provider Nurse Practitioner; PCP Nurse Practitioner; Referring Provider Nurse Practitioner; Visit Provider Nurse Practitioner
DX: M48.061 Spinal stenosis, lumbar region without neurogenic claudication (principal); M51.36 Other intervertebral disc degeneration, lumbar region; M51.34 Other intervertebral disc degeneration, thoracic region; R29.898 Other symptoms and signs involving the musculoskeletal system; R20.0 Anesthesia of skin; R53.1 Weakness; E03.9 Hypothyroidism, unspecified; F32.9 Major depressive disorder, single episode, unspecified; G89.29 Other chronic pain; R82.998 Other abnormal findings in urine
CPT/HCPCS: 36415; 72072; 72110; 80053; 81001; 83540; 83550; 84439; 84443; 84481; 85025

== ENCOUNTER → 2023-01-24 13:55 | Outpatient (CLI) | payer MEDICARE, MEDICAID, SELFPAY ==
[2023-01-24 17:43] LABS: Follicle Stimulating Hormone < 0.66 mIU/mL
== END ==
PROVIDERS: Family Provider Nurse Practitioner; PCP Nurse Practitioner; Referring Provider Nurse Practitioner; Visit Provider Nurse Practitioner
DX: N91.2 Amenorrhea, unspecified (principal); R23.2 Flushing
CPT/HCPCS: 36415; 83001

== ENCOUNTER → 2023-03-08 13:11 | Outpatient (CLI) | payer MEDICARE, MEDICAID, SELFPAY ==
[2023-03-08 14:22] LABS: Lithium 0.6 mmol/L (0.6-1.2)
== END ==
LOC: LAB 13:12
PROVIDERS: Psychiatry & Neurology Psychiatry; Family Provider Nurse Practitioner; PCP Nurse Practitioner; Referring Provider Nurse Practitioner; Visit Provider Nurse Practitioner
DX: Z79.899 Other long term (current) drug therapy (principal); F31.10 Bipolar disorder, current episode manic without psychotic features, unspecified
CPT/HCPCS: 36415; 80178

== ENCOUNTER → 2023-06-06 10:19 | Outpatient (CLI) | payer MEDICARE, MEDICAID, SELFPAY ==
[2023-06-06 11:14] LABS: Hemoglobin A1C% w Est Avg Glu 4.5 % (4.0-6.0)
[2023-06-06 11:41] LABS: Alanine Aminotransferase 9 IU/L (<35); Albumin 3.9 g/dL (3.5-5.0); Albumin Globulin Ratio 1.3 (1.0-2.8); Alkaline Phosphatase 68 U/L (38-126); Aspartate Aminotransferase 19 IU/L (14-36); BUN Creatinine Ratio 18.7 (6-22); Bilirubin Total 0.3 mg/dL (0.2-1.3); Blood Urea Nitrogen 14 mg/dL (7-17); Calcium 8.9 mg/dL (8.4-10.2); Carbon Dioxide 28 mmol/L (22-32); Chloride 112 mmol/L (98-107); Estimated Glomerular Filt Rate > 60 mL/min (>60); Globulin 2.9 g/dL (1.7-4.1); Glucose 84 mg/dL (70-100); HEMOLYSIS < 15 (0-50); Magnesium 2.3 mg/dL (1.6-2.3); Potassium 4.7 mmol/L (3.4-5.1); Sodium 138 mmol/L (137-145); Total Protein 6.8 g/dL (6.3-8.2)
== END ==
PROVIDERS: Family Provider Nurse Practitioner; PCP Nurse Practitioner; Referring Provider Nurse Practitioner; Visit Provider Nurse Practitioner
DX: R73.01 Impaired fasting glucose (principal); T50.2X5A Adverse effect of carbonic-anhydrase inhibitors, benzothiadiazides and other diuretics, initial encounter
CPT/HCPCS: 36415; 80053; 83036; 83735

== ENCOUNTER → 2023-06-12 18:38 | Outpatient (CLI) | payer MEDICARE, MEDICAID, SELFPAY ==
--- NOTE | 2023-06-12 18:40 | DI.MRI.S_ITS ---
PROCEDURE: MR LUMBAR SPINE WO CON INDICATIONS: Worsening lumbar radiculopathy TECHNIQUE: Noncontrast sagittal T1 spin echo and T2 fast echo, sagittal STIR, and T2 fast spin echo through the lumbar spine. In cases with scoliosis, additional coronal T2 fast spin echo may be performed. COMPARISON: [facility], MR, MR LUMBAR SPINE WO/W CON, 04/27/2022, 18:51. [facility], MR, MR LUMBAR SPINE WITH/WITHOUT CONTRAST, 02/23/2018, 19:01. [facility], CR, XR LUMBAR SPINE 2 OR 3 VIEWS, 06/16/2022, 13:47. [facility], CR, XR LUMBAR SPINE MIN 4V, 12/28/2022, 13:36. FINDINGS: Image quality: This examination is limited by involuntary motion artifact. Alignment and Curvature: There is normal bony alignment. Bone Marrow: Marrow is of normal overall signal. No acute vertebral body compression fractures. Spinal Cord: Conus medullaris terminates at the L1 level. Visualized cord demonstrates normal signal and size. Paraspinous Soft Tissues: No paravertebral masses. T12-L1: Normal appearance. L1-L2: Moderate loss of disc height is seen. Loss of disc signal is seen. Mild generalized disc bulge is seen. There is a mild central/left disc protrusion seen. No neural foraminal narrowing is seen. Minimal central canal narrowing is seen. Stable from the prior study. L2-L3: The disc height and disk signal are relatively well-preserved. Mild generalized disc bulge is seen. There is a superimposed central disc protrusion. No significant neural foraminal or central canal narrowing can be seen. L3-L4: The disc height and disk signal are well-preserved. Mild generalized disc bulge is seen. Mild facet joint hypertrophy is seen. Associated hypertrophy of the ligamentum flavum can be seen. No significant neural foraminal or central canal narrowing can be seen. L4-L5: The disc height and disk signal are well-preserved. Mild to moderate disc bulge is seen, with a central disc protrusion. Moderate facet joint hypertrophy is seen. Moderate bilateral neural foraminal narrowing is seen. Mild to moderate central canal narrowing is seen. When comparison is made with the prior images, these findings are similar. L5-S1: The disc height is well-preserved. Loss of disc signal is seen at this level. Mild generalized disc bulge is seen. There is a superimposed central disc protrusion. There is a focal annular fissure seen posteriorly. Mild facet joint hypertrophy is seen. There is mild right-sided and no left-sided neural foraminal narrowing. Mild central canal narrowing is seen. When comparison is made with the prior images, these findings are similar. IMPRESSION: Multiple levels of lumbar spine degenerative change can be seen, which are similar to the prior MRI images. Dictated by: Drew Osborne M.D. on 06/13/2023 at 10:56 Approved by: Drew Osborne M.D. on 06/13/2023 at 11:02
== END ==
LOC: MRI 18:40
PROVIDERS: Family Provider Nurse Practitioner; PCP Nurse Practitioner; Referring Provider Anesthesiology; Visit Provider Anesthesiology
DX: M47.26 Other spondylosis with radiculopathy, lumbar region (principal); M47.27 Other spondylosis with radiculopathy, lumbosacral region
CPT/HCPCS: 72148

== ENCOUNTER 2023-08-02 13:32 | Outpatient (CLI) | payer MEDICARE, MEDICAID, SELFPAY ==
[2023-08-02] VITALS (9 sets, daily range): BP systolic 111–129; BP diastolic 54–68; PULSE 69–83; RESP 12–19; TEMP 36; O2SAT 100
--- NOTE | 2023-08-02 13:30 | DI.RAD.S_ITS ---
PROCEDURE: PAIN L/S TRANSFORAMINAL INJECT INDICATIONS: RADICULOPATHY COMPARISON: None. FINDINGS: Fluoroscopic spot filming was performed to verify placement of spinal needles at the left L4-5 level(s), as labeled on the films. Appropriate location(s) of the needle tip(s) was confirmed by injection of iodinated contrast. IMPRESSION: Fluoroscopic guidance utilized for an epidural injection at L4-5. Dictated by: Israel Philip M.D. on 08/02/2023 at 15:48 Approved by: Israel Philip M.D. on 08/02/2023 at 15:49
[2023-08-02] MEDS: MIDAZOLAM 2 MG/2 ML VIAL 0.5 MG IV (14:08)
[2023-08-02] MEDS: DEXAMETHASONE 10 MG/ML VIAL INJ (14:14)
[2023-08-02] MEDS: iopamidoL 15 ML VIAL 3 ML INJ (14:15)
--- NOTE | 2023-08-02 15:05 | P.PCN_ITS ---
Date/Time/Diagnoses Date of procedure: 08/02/23 Time of procedure: 13:30 Procedure Notes Physician: Carlos Delaney Total Fluoroscopy time (seconds): 24 Total sedation minutes: 12 Procedure in detail & Post-procedure care: Left L4-5 Transforaminal Epidural Steroid Injection Indications: Italia is presenting for treatment of lumbar radiculopathy with low back and leg pain. Preoperative diagnosis: Lumbar radiculopathy Postoperative diagnosis: Same Focused Examination: Ax3 Mood and affect are normal Vital Signs: VSS ASA: 2 Consent: Following review of allergies and potential side effects/complications, including, but not necessarily limited to, infection, allergic reaction, local tissue breakdown, stroke, temporary or permanent nerve injury, paralysis, and possible , the patient indicated that they understood and agreed to p roceed.? An informed consent document was signed by the patient, witnessed by a nurse and placed in the patient's chart.? Additionally, other treatment options including medications and physical therapy were reviewed with the patient. All questions were answered. Site was then marked. Anesthesia: After review of previous anesthetic history and IV conscious sedation, the patient was deemed safe to proceed with today's procedure with IV conscious sedation. IV sedation was accomplished with midazolam 0.5 mg administered by the RN after order by Dr. Delaney. Sedation was titrated to patient comfort during the course of the procedure. Patient remained responsive to all verbal commands. Position: Prone Monitoring: NIBP, Pulse oximetry, 3 lead EKG Needle used: 22 gauge, 3.5 inch spinal needle Contrast: Isovue 300M Injectate: 10 mg Dexamethasone mixed with 1% lidocaine 1 ml and normal saline 1 mL Technique: The skin was prepped with chloraprep and draped in a sterile fashion. Time out was performed as per protocol. Oxygen applied via NC. Skin and subcutaneous structures of the needle entry site were infiltrated with 3mL of lidocaine 1%. Under fluoroscopic guidance, using an ipsilateral oblique view,?a 22 gauge 3.5 inch needle was advanced to the base of the left L4?pedicle.? The needle was advanced to the superio-posterior aspect of the neural foramen under lateral view.? Oblique and AP views were rechecked. No paresthesias noted by the patient during needle placement. In AP view and utilizing real-time digital subtraction fluoroscopy, 2 ml contrast was slowly injected. Epidural spread was observed without evidence for intravascular nor intrathecal uptake. Contrast spread was seen craniocaudally. The above injectate was then administered without paresthesias and the needle was subsequently withdrawn. Band-Aids applied to injection sites. EBL: less than 1 ml Complications: None Post Procedure: Patient was taken to the recovery and monitored. The patient was provided a Pain Log to continue to record the patient's response to the target- specific procedure prior to the patient's follow-up visit with the referring physician. Patient was stable upon discharge. Detailed post procedure instructions were provided. Patient was asked to call in the event of worsening pain, fever, weakness, numbness or bladder or bowel incontinence.
== END 2023-08-02 14:47 | disposition home or self-care (01) ==
PROVIDERS: Family Provider Nurse Practitioner; PCP Nurse Practitioner; Referring Provider Anesthesiology; Visit Provider Anesthesiology
DX: M54.16 Radiculopathy, lumbar region (principal)
CPT/HCPCS: 64483; 99152; J1100; J2250

== ENCOUNTER → 2023-08-23 11:32 | Outpatient (CLI) | payer MEDICARE, MEDICAID, SELFPAY ==
[2023-08-23 12:09] LABS: Add Manual Diff / Slide Review NO; Basophils Absolute Auto 100 /uL (0-100); Basophils Percent Auto 1.3 % (0-2); Eosinophils Absolute Auto 100 /uL (0-450); Eosinophils Percent Auto 1.8 % (2-4); Hematocrit 39.2 % (36-46); Hemoglobin 13.5 g/dL (12.0-16.0); Lymphocytes Absolute Auto 1100 /uL (1100-4500); Mean Corpuscular HGB Conc 34.4 % (30-36); Mean Corpuscular Hemoglobin 32.5 PG (26-34); Mean Corpuscular Volume 94.3 fL (80-100); Monocytes Absolute Auto 400 /uL (0-900); Monocytes Percent Auto 5.3 % (3-14); Neutrophils Absolute Auto 5400 /uL (1500-7000); Neutrophils Percent Auto 75.6 % (50-75); Platelet Count 248 X10^3/uL (150-400); Red Blood Cell Count 4.16 X10^6/uL (4.0-5.2); Red Cell Distribution Width 12.7 % (11.6-14.8); White Blood Cell Count 7.1 X10^3/uL (4.5-11.0)
--- NOTE | 2023-08-23 12:15 | EKG_ITS ---
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
[2023-08-23 12:31] LABS: Alanine Aminotransferase 13 IU/L (<35); Albumin 4.8 g/dL (3.5-5.0); Albumin Globulin Ratio 1.7 (1.0-2.8); Alkaline Phosphatase 73 U/L (38-126); Aspartate Aminotransferase 20 IU/L (14-36); BUN Creatinine Ratio 13.2 (6-22); Bilirubin Total 0.4 mg/dL (0.2-1.3); Blood Urea Nitrogen 10 mg/dL (7-17); Calcium 9.4 mg/dL (8.4-10.2); Carbon Dioxide 24 mmol/L (22-32); Chloride 112 mmol/L (98-107); Cholesterol 176 mg/dL (140-199); Estimated Glomerular Filt Rate > 60 mL/min (>60); Globulin 2.8 g/dL (1.7-4.1); Glucose 93 mg/dL (70-100); HDL Cholesterol 82 mg/dL (40-60); HEMOLYSIS < 15 (0-50); LDL Cholesterol Calculated 79 mg/dL (<100); Potassium 4.4 mmol/L (3.4-5.1); Sodium 140 mmol/L (137-145); Total Protein 7.6 g/dL (6.3-8.2); Triglycerides 77 mg/dL (35-150)
[2023-08-23 12:46] LABS: Free T3, Triiodothyronine Free 2.99 pg/mL (2.77-5.27); Free T4, Direct Thyroxine 0.67 ng/dL (0.78-2.19)
[2023-08-23 12:48] LABS: Pregnancy Test Urine Negative (Negative); UR Morphine/Opiate cutoff 300 Negative (Negative); Ur Creatinine Normal (Normal); Ur Specific Gravity Normal (Normal); Urine Amphetamines Negative (Negative); Urine Cocaine Negative (Negative); Urine Methamphetamines Negative (Negative); Urine Phencyclidine Negative (Negative); Urine Tetrahydrocannabinol Positive (Negative); Urine pH Normal (Normal)
[2023-08-23 12:49] LABS: Urine Barbiturates Negative (Negative); Urine Benzodiazepines Positive (Negative); Urine MDMA Negative (Negative); Urine Methadone Negative (Negative); Urine Oxycodone Negative (Negative); Urine Tricyclic Antidepressant Positive (Negative)
[2023-08-23 13:00] LABS: Thyroid Stimulating Hormone 1.26 uIU/mL (0.47-4.68)
[2023-08-24 18:11] LABS: HIV 1 & 2 Ab/Ag 4th Gen Combo NEGATIVE (NEGATIVE)
== END ==
PROVIDERS: Family Provider Nurse Practitioner; PCP Nurse Practitioner; Referring Provider Nurse Practitioner; Visit Provider Nurse Practitioner
DX: Z01.812 Encounter for preprocedural laboratory examination (principal); Z00.00 Encounter for general adult medical examination without abnormal findings; Z11.4 Encounter for screening for human immunodeficiency virus [HIV]
CPT/HCPCS: 36415; 80053; 80061; 80305; 81025; 84439; 84443; 84481; 85025; 87389; 93005

== ENCOUNTER 2023-10-04 07:33 | Outpatient (CLI) | payer MEDICARE, MEDICAID, SELFPAY ==
[2023-10-04] VITALS (7 sets, daily range): BP systolic 109–122; BP diastolic 64–73; PULSE 78–96; RESP 13–19; TEMP 36.8; O2SAT 100
[2023-10-04] MEDS: MIDAZOLAM 2 MG/2 ML VIAL 0.5 MG IV (08:00)
--- NOTE | 2023-10-04 08:00 | DI.RAD.S_ITS ---
PROCEDURE: PAIN L INTERLAMINAR/CAUDAL INJ INDICATIONS: SPONDYLOSIS COMPARISON: None. FINDINGS: Fluoroscopic spot filming was performed to verify placement of spinal needles at the L4-5 level(s), as labeled on the films. Appropriate location(s) of the needle tip(s) was confirmed by injection of iodinated contrast. IMPRESSION: Fluoro guidance was provided intraoperatively for attempted L4-5 interlaminar GERRY performed by ordering physician. Dictated by: Ifeanyi Cruz M.D. on 10/04/2023 at 15:44 Approved by: Ifeanyi Cruz M.D. on 10/04/2023 at 15:45
[2023-10-04] MEDS: DEXAMETHASONE 10 MG/ML VIAL INJ (08:10)
[2023-10-04] MEDS: LIDOCAINE 1% (PF) 5 ML INJ (08:10)
[2023-10-04] MEDS: iopamidoL 15 ML VIAL 3 ML INJ (08:10)
--- NOTE | 2023-10-04 08:18 | PC.NURSE ---
0818- procedure aborted, see Dr arthur note. Patient denies taking any blood thinners, plt lab reviewed with Dr Delaney.
--- NOTE | 2023-10-04 08:40 | PC.NURSE ---
Dressing to lower back saturated with blood from needle site. Bandaid dressing removed and site cleaned. Pressure dressing applied to patient's lower back needle site due to oozing blood. Three 2x2 guaze pads applied and tension held with [address] Delaney visualized new dressing prior to patient d/c and gave verbal approval for discharge.
--- NOTE | 2023-10-04 12:21 | PM.PROC.IR.1 ---
Date/Time/Diagnoses Date of procedure: 10/04/23 Time of procedure: 08:00 Procedure Notes Physician: Carlos Delaney Total Fluoroscopy time (seconds): 10 Total sedation minutes: 18 Procedure in detail & Post-procedure care: L4-5 Interlaminar Epidural Steroid Injection - Aborted Indications: [place] is presenting for treatment of lumbar radiculopathy with low back and leg pain. Preoperative diagnosis: Lumbar radiculopathy Postoperative diagnosis: Same Focused Examination: Ax3 Mood and affect are normal Vital Signs: VSS ASA: 2 Consent: Following review of allergies and potential side effects/complications, including, but not necessarily limited to, infection, allergic reaction, local tissue breakdown, stroke, temporary or permanent nerve injury, paralysis, and possible , the patient indicated that they understood and agreed to proceed.? An informed consent document was signed by the patient, witnessed by a nurse and placed in the patient's chart.? Additionally, other treatment options including medications and physical therapy were reviewed with the patient. All questions were answered. Site was then marked. Anesthesia: After review of previous anesthetic history and IV conscious sedation, the patient was deemed safe to proceed with today's procedure with IV conscious sedation. IV sedation was accomplished with midazolam 0.5 mg administered by the RN after order by Dr. Delaney. Sedation was titrated to patient comfort during the course of the procedure. Patient remained responsive to all verbal commands. Position: Prone Monitoring: NIBP, Pulse oximetry, 3 lead EKG Needle used: 18 G 3.5? Tuohy Contrast: None Injectate: None Technique: The skin was prepped with chloraprep and then draped in a sterile fashion. Time out was performed as per protocol. Oxygen applied via NC. Skin and subcutaneous structures of the needle entry site was then infiltrated with 3 mL of lidocaine 1%. Under AP, lateral and contralateral oblique fluoroscopic control, the Tuohy needle was guided into the L4-5 interspinous space. Oozing of blood noted from skin surface. Decision made to not proceed further with the injection given the abnormal amount of oozing. The epidural space was not accessed during this procedure. Tuohy needle removed and continued oozing. Pressure held until this abated. Band-Aids applied to injection sites. Upon presentation to the post procedural room, Band-Aid needed to be replaced with a pressure style dressing with a folded 2 x 2 and Tegaderm. The oozing then stopped. EBL: less than 1 ml Complications: Bleeding as above Post Procedure: Patient was taken to the recovery and monitored. Patient was stable upon discharge. Detailed post procedure instructions were provided. Patient was asked to call in the event of worsening pain, fever, weakness, numbness or bladder or bowel incontinence. We discussed the importance of reporting any neurological changes of the lower extremities including new numbness or weakness in addition to bowel or bladder changes. She was instructed to present to the emergency department if these problems arise. She expressed understanding.
== END 2023-10-04 08:40 | disposition home or self-care (01) ==
PROVIDERS: Family Provider Nurse Practitioner; PCP Nurse Practitioner; Referring Provider Anesthesiology; Visit Provider Anesthesiology
DX: M54.16 Radiculopathy, lumbar region (principal)
CPT/HCPCS: 62323; 99152; J1100; J2250

== ENCOUNTER → 2024-07-02 15:48 | Outpatient (CLI) | payer MEDICARE, MEDICAID, SELFPAY ==
--- NOTE | 2024-07-02 15:51 | DI.MRI.S_ITS ---
PROCEDURE: MR LUMBAR SPINE WO CON INDICATIONS: weakness, saddle anesthesia, frequent falls TECHNIQUE: Noncontrast sagittal T1 spin echo and T2 fast echo, sagittal STIR, and T2 fast spin echo through the lumbar spine. In cases with scoliosis, additional coronal T2 fast spin echo may be performed. COMPARISON: [facility], MR, MR LUMBAR SPINE WO CON, 06/12/2023, 18:41. FINDINGS: Image quality: Excellent The last well-formed disc space is considered as L5-S1. Rudimentary disc at S1-2. Mild retrolisthesis L3 on L4, and L5 on S1. Vertebral body height of the lumbar spine are well maintained. Multilevel disc bulge and disc desiccation. There is a small active Schmorl's node at the inferior endplate of L2. No suspicious marrow replacing lesion. Conus terminates at the level of T12-L1, and is unremarkable. Right neural foraminal stenosis: None. Left neural foraminal stenosis: Mild at L4-5. Axial images: T12-L1: No central canal stenosis. L1-2: Mild disc bulge. No central canal stenosis. L2-3: Mild disc bulge. No central canal stenosis. L3-4: No central canal stenosis. L4-5: Disc bulge. Moderate bilateral facet arthropathy with ligamentum flap per trophy. Mild central canal stenosis. L5-S1: Disc bulge with annular fissure. No central canal stenosis. Visualized sacrum is intact. No abdominal aortic aneurysm. Small T2 hyperintense lesion in hepatic segment 7, unchanged from prior exam, and may represent a small liver cyst. IMPRESSION: 1. Multilevel degenerative changes lumbar spine, most pronounced at L4-5, where there is mild central canal stenosis and mild left neural foraminal stenosis overall, grossly unchanged from prior exam. 2. Small active Schmorl's node at the inferior endplate of L2, unchanged. Dictated by: Neli Alicea M.D. on 07/02/2024 at 17:25 Approved by: Neli Alicea M.D. on 07/02/2024 at 17:35
== END ==
LOC: MRI 15:50
PROVIDERS: PCP Family Medicine; Referring Provider Family Medicine; Visit Provider Family Medicine
DX: M47.26 Other spondylosis with radiculopathy, lumbar region (principal); M48.061 Spinal stenosis, lumbar region without neurogenic claudication; Q07.00 Arnold-Chiari syndrome without spina bifida or hydrocephalus; R20.0 Anesthesia of skin; M51.46 Schmorl's nodes, lumbar region; R53.1 Weakness; M54.42 Lumbago with sciatica, left side; G89.29 Other chronic pain; Z98.1 Arthrodesis status
CPT/HCPCS: 72148

== ENCOUNTER → 2024-09-03 14:19 | Outpatient (CLI) | payer MEDICARE, MEDICAID, SELFPAY ==
--- NOTE | 2024-09-03 14:22 | DI.CT.S_ITS ---
PROCEDURE: CT CERVICAL SPINE WO CON INDICATIONS: Spinal fusion TECHNIQUE: Noncontrast 3 mm thick sections acquired from the skull base to the T4 level. Sagittal and coronal reformats were then constructed. For radiation dose reduction, the following was used: automated exposure control, adjustment of mA and/or kV according to patient size. COMPARISON: None. FINDINGS: Image quality: Excellent. Bones: There is prior anterior fusion at C4 through C7 levels. No obvious hardware loosening or failure. Near complete bony union at C6-7 and C5-6 levels are seen. Intervertebral spacer at C4-5 level is noted. No acute fracture or dislocation. Degenerative endplate changes are noted at C3-4 and C7-T1 level. No suspicious bony lesions. Visualized superior ribs are intact. Soft tissues: Prevertebral soft tissues are normal in thickness. No paravertebral hematomas. No apical pneumothoraces. IMPRESSION: 1. Post ACDF changes at C4 through C7 levels with straightening of normal cervical lordosis. No gross hardware loosening or failure. No acute fracture or dislocation. 2. Near complete bony union at C5-6 and C6-7 levels. Degenerative endplate changes seen at C3-4 and C7-T1 levels. 3. No gross paraspinous soft tissue abnormalities. Dictated by: Ifeanyi Cruz M.D. on 09/03/2024 at 16:32 Approved by: Ifeanyi Cruz M.D. on 09/03/2024 at 16:34
== END ==
PROVIDERS: PCP Family Medicine; Referring Provider Neurological Surgery; Visit Provider Neurological Surgery
DX: M54.12 Radiculopathy, cervical region (principal); Z98.1 Arthrodesis status
CPT/HCPCS: 72125

== ENCOUNTER → 2024-09-04 13:50 | Outpatient (CLI) | payer MEDICARE, MEDICAID, SELFPAY ==
[2024-09-04 14:50] LABS: Add Manual Diff / Slide Review NO; Hematocrit 36.6 % (36-46); Hemoglobin 12.7 g/dL (12.0-16.0); Lymphocytes Absolute Auto 1600 /uL (1100-4500); Mean Corpuscular HGB Conc 34.7 % (30-36); Mean Corpuscular Hemoglobin 31.5 PG (26-34); Mean Corpuscular Volume 90.9 fL (80-100); Platelet Count 246 X10^3/uL (150-400)
[2024-09-04 15:19] LABS: Alanine Aminotransferase 174 IU/L (<35); Albumin 5.1 g/dL (3.5-5.0); Albumin Globulin Ratio 1.8 (1.0-2.8); Alkaline Phosphatase 103 U/L (38-126); Blood Urea Nitrogen 7 mg/dL (7-17); Calcium 10.1 mg/dL (8.4-10.2); Carbon Dioxide 27 mmol/L (22-32); Chloride 102 mmol/L (98-107); Cholesterol 257 mg/dL (140-199); Estimated Glomerular Filt Rate > 60 mL/min (>60); Globulin 2.8 g/dL (1.7-4.1); Glucose 73 mg/dL (70-99); HDL Cholesterol 71 mg/dL (40-60); HEMOLYSIS < 15 (0-50); Potassium 4.5 mmol/L (3.4-5.1); Sodium 139 mmol/L (137-145); Total Protein 7.9 g/dL (6.3-8.2); Triglycerides 87 mg/dL (35-150)
[2024-09-04 15:56] LABS: TSH w/ Reflex to FT4 1.63 uIU/mL (0.47-4.68)
== END ==
PROVIDERS: PCP Family Medicine; Referring Provider Family Medicine; Visit Provider Family Medicine
DX: R73.01 Impaired fasting glucose (principal); E78.5 Hyperlipidemia, unspecified; E03.9 Hypothyroidism, unspecified; Z79.899 Other long term (current) drug therapy
CPT/HCPCS: 36415; 80053; 80061; 84443; 85025

== ENCOUNTER → 2024-09-11 14:53 | Outpatient (CLI) | payer MEDICARE, MEDICAID, SELFPAY ==
--- NOTE | 2024-09-11 15:01 | DI.RAD.S_ITS ---
PROCEDURE: XR CERVICAL SPINE 4V OR 5V INDICATIONS: BACK PAIN TECHNIQUE: 5 views of the cervical spine were acquired. COMPARISON: [facility], CT, CT CERVICAL SPINE WO CON, 09/03/2024, 14:27. [facility], CR, XR CERVICAL SPINE 2V OR 3V, 11/14/2022, 15:48. [facility], CR, XR CERVICAL SPINE 4V OR 5V, 06/21/2021, 13:23. FINDINGS: Bones: Postsurgical changes from prior anterior fixation at C4 through C7. There is solid osseous bridging across the C5-6 and C6-7 disc spaces. Hardware appears intact. No acute fractures or dislocations to the T1 level. No suspicious bony lesions. Multilevel disc space narrowing and degenerative endplate changes most notably at C3-4 and C7-T1. Multilevel uncovertebral joint and facet hypertrophy. There is reduced range of motion between flexion and extension, without abnormal subluxation. Soft tissues: Prevertebral soft tissues are normal in thickness. IMPRESSION: 1. Postsurgical changes from prior ACDF at C4 through C7. 2. Reduced cervical range of motion without abnormal subluxation. 3. Mild spondylosis. Approved by: Solis Blackwell M.D. on 09/13/2024 at 9:29
== END ==
LOC: RAD 14:58
PROVIDERS: PCP Family Medicine
DX: M47.22 Other spondylosis with radiculopathy, cervical region (principal); Z98.1 Arthrodesis status
CPT/HCPCS: 72050

== ENCOUNTER → 2024-11-11 13:33 | Outpatient (CLI) | payer MEDICARE, MEDICAID, SELFPAY ==
--- NOTE | 2024-11-11 13:35 | DI.MG.S_ITS ---
MM screening mammo BI: 11/11/2024. BI-RADS: 1 CLINICAL: 49-year old female for bilateral screening mammogram. Tyrer-Cuzick lifetime risk of 19.0%. No personal or first-degree family history of breast cancer. Current reported family history of breast cancer: paternal aunt and daughter of uncle. PRIOR EXAMS 04/06/2022, 08/24/2019, 10/29/2018, 04/23/2018, 04/11/2018. MAMMOGRAPHY TECHNIQUE: 2D and 3D (tomosynthesis) digital mammographic views obtained, with additional images as needed for full coverage. Current study was also evaluated with a Computer Aided Detection (CAD) system. DENSITY D. The breasts are extremely dense, which lowers the sensitivity of mammography. MAMMOGRAPHY FINDINGS Bilateral: No suspicious mass, asymmetry, microcalcification, or other abnormality seen. IMPRESSION: * No evidence of malignancy. RECOMMENDATIONS Bilateral * Annual screening mammography. OVERALL ASSESSMENT CATEGORY BI-RADS-1: Negative. [employer] recommends annual screening mammography beginning at age 40 for women with average risk of breast cancer. ELECTRONICALLY SIGNED: Lashay Monique M.D. on 11/11/2024 at 03:45:24 PM PT Interpreting Station ID: [id number]
--- NOTE | 2024-11-11 13:35 | DI.CT.S_ITS ---
PROCEDURE: CT THORACIC SPINE WO CON INDICATIONS: bowel incontinence, thoracic pain TECHNIQUE: Noncontrast 3 mm thick sections acquired through the region of interest in the thoracic spine. Sagittal and coronal reformats were then constructed. For radiation dose reduction, the following was used: automated exposure control. COMPARISON: [facility], CT, CT CERVICAL SPINE WO CON, 09/03/2024, 14:27. FINDINGS: Image quality: Excellent. Bones: Partially imaged anterior cervical diskectomy and fusion, unchanged. There is normal overall bony alignment. No acute vertebral body compression fractures. No suspicious sclerotic or lytic bony lesions. Central spinal canal is of normal overall caliber. Mild multiple level degenerative disc disease. Soft tissues: No paravertebral masses or hematomas. Visualized posteromedial lungs appear clear. IMPRESSION: Mild multilevel degenerative disc disease. No acute abnormality. Dictated by: Pritesh Valencia M.D. on 11/11/2024 at 14:52 Approved by: Pritesh Valencia M.D. on 11/11/2024 at 14:57
== END ==
PROVIDERS: PCP Family Medicine; Referring Provider Family Medicine; Visit Provider Family Medicine
DX: Z12.31 Encounter for screening mammogram for malignant neoplasm of breast (principal); Z80.3 Family history of malignant neoplasm of breast; R92.343 Mammographic extreme density, bilateral breasts; M51.16 Intervertebral disc disorders with radiculopathy, lumbar region; D17.79 Benign lipomatous neoplasm of other sites; R20.0 Anesthesia of skin; G89.4 Chronic pain syndrome; Z98.1 Arthrodesis status
CPT/HCPCS: 72128; 77063; 77067

== ENCOUNTER → 2024-12-25 14:57 | Outpatient (CLI) | payer MEDICARE, MEDICAID, SELFPAY ==
[2024-12-25 17:15] LABS: Hematocrit 36.4 % (36-46); Hemoglobin 12.6 g/dL (12.0-16.0); Mean Corpuscular HGB Conc 34.5 % (30-36); Mean Corpuscular Hemoglobin 31.6 PG (26-34); Mean Corpuscular Volume 91.6 fL (80-100); Platelet Count 252 X10^3/uL (150-400)
[2024-12-25 17:41] LABS: HEMOLYSIS < 15 (0-50); Iron 82 ug/dL (37-170)
[2024-12-25 17:43] LABS: Alanine Aminotransferase 36 IU/L (<35); Albumin 4.7 g/dL (3.5-5.0); Albumin Globulin Ratio 1.7 (1.0-2.8); Alkaline Phosphatase 81 U/L (38-126); Blood Urea Nitrogen 14 mg/dL (7-17); Calcium 9.7 mg/dL (8.4-10.2); Carbon Dioxide 26 mmol/L (22-32); Chloride 101 mmol/L (98-107); Estimated Glomerular Filt Rate > 60 mL/min (>60); Globulin 2.8 g/dL (1.7-4.1); Glucose 74 mg/dL (70-99); HEMOLYSIS < 15 (0-50); Potassium 4.8 mmol/L (3.4-5.1); Sodium 137 mmol/L (137-145); Total Protein 7.5 g/dL (6.3-8.2)
[2024-12-25 17:52] LABS: Percent Iron Saturation 25 % (15-50); Total Iron Binding Capacity 331 ug/dL (265-497); Transferrin 295 mg/dL (206-381)
[2024-12-25 18:18] LABS: Ferritin 152 ng/mL (11-264)
== END ==
LOC: LAB 15:01
PROVIDERS: PCP Family Medicine; Referring Provider Family Medicine; Visit Provider Family Medicine
DX: R79.89 Other specified abnormal findings of blood chemistry (principal); D64.9 Anemia, unspecified
CPT/HCPCS: 36415; 80053; 82728; 83540; 83550; 85027

== ENCOUNTER → 2025-01-01 13:51 | Outpatient (CLI) | payer MEDICARE, MEDICAID, SELFPAY ==
[2025-01-01 16:01] LABS: Add Manual Diff / Slide Review NO; Hematocrit 38.7 % (36-46); Hemoglobin 13.3 g/dL (12.0-16.0); Lymphocytes Absolute Auto 1600 /uL (1100-4500); Mean Corpuscular HGB Conc 34.3 % (30-36); Mean Corpuscular Hemoglobin 31.5 PG (26-34); Mean Corpuscular Volume 91.8 fL (80-100); Platelet Count 247 X10^3/uL (150-400)
[2025-01-01 16:34] LABS: Alanine Aminotransferase 19 IU/L (<35); Albumin 5.1 g/dL (3.5-5.0); Albumin Globulin Ratio 1.9 (1.0-2.8); Alkaline Phosphatase 83 U/L (38-126); Blood Urea Nitrogen 8 mg/dL (7-17); Calcium 9.6 mg/dL (8.4-10.2); Carbon Dioxide 25 mmol/L (22-32); Chloride 104 mmol/L (98-107); Estimated Glomerular Filt Rate > 60 mL/min (>60); Globulin 2.7 g/dL (1.7-4.1); Glucose 86 mg/dL (70-99); HEMOLYSIS < 15 (0-50); Potassium 5.0 mmol/L (3.4-5.1); Sodium 141 mmol/L (137-145); Total Protein 7.8 g/dL (6.3-8.2)
== END ==
PROVIDERS: PCP Family Medicine; Referring Provider Family Medicine; Visit Provider Family Medicine
DX: R79.89 Other specified abnormal findings of blood chemistry (principal); E61.1 Iron deficiency
CPT/HCPCS: 36415; 80053; 85025

== ENCOUNTER → 2025-01-27 11:53 | Outpatient (CLI) | payer MEDICARE, MEDICAID, SELFPAY ==
--- NOTE | 2025-01-27 12:03 | DI.MRI.S_ITS ---
MR breast BI wo/w con: 01/27/2025. BI-RADS: 3 CLINICAL: 49-year old female for bilateral diagnostic breast MRI. No personal or first-degree family history of breast cancer. Current reported family history of breast cancer: paternal aunt and daughter of uncle. PRIOR EXAMS: Mammogram(s): 11/11/2024. Eight Other Exams on 04/06/2022, 08/24/2019, 10/29/2018, 04/23/2018, 04/11/2018. MRI TECHNIQUE: Bilateral breast MRI was performed on a 1.5 Ramona magnet using a dedicated breast coil with mild compression. Axial T1 and T2 STIR sequences were obtained. Dynamic contrast enhanced VIBRANT fat-suppressed sequences were obtained. Delayed sagittal high resolution or sagittal reconstructed isotropic sequence was also obtained. Subtraction images and maximum intensity projection images were obtained. The study was evaluated using [employer] software. IV Contrast: 20 ml ProHance. FIBROGLANDULAR TISSUE Bilateral: D. Extreme fibroglandular tissue. BACKGROUND PARENCHYMAL ENHANCEMENT Bilateral: Moderate symmetrical background parenchymal enhancement. BREAST FINDINGS Right: Lower Central, Posterior depth: Prominent foci of enhancement in a picture frame distribution more pronounced in the right breast relative to the left. This is favored to represent prominent background parenchymal enhancement. No correlate on mammogram or suspicious mammographic findings on comparison exam. No other suspicious mass, non-mass enhancement, or architectural distortion. No axillary or internal mammary chain adenopathy. No skin or nipple abnormalities. Left: There is no suspicious mass or non-mass enhancement. No suspicious architectural distortion. No skin or nipple abnormalities. No internal mammary chain or axillary adenopathy. CHEST FINDINGS Visualized portions of the chest appear unremarkable. ABDOMEN FINDINGS Visualized portions of the upper abdomen appear unremarkable. IMPRESSION: Right: Lower Central, Posterior depth * Probably Benign. Left * No evidence of malignancy. RECOMMENDATIONS Right: Lower Central, Posterior depth * Six month followup with diagnostic breast MRI. OVERALL ASSESSMENT CATEGORY BI-RADS-3: Probably Benign. ELECTRONICALLY SIGNED: Johan Deras M.D. on 01/28/2025 at 07:22:26 PM PT Interpreting Station ID: [id number]
--- NOTE | 2025-01-27 12:04 | DI.RAD.S_ITS ---
PROCEDURE: XR KNEE RT 3V INDICATIONS: right knee pain TECHNIQUE: 3 views of the knee were acquired. COMPARISON: None. FINDINGS: Bones: No fractures or dislocations. Mild tricompartmental osteoarthritis. No significant patellar subluxation. No suspicious bony lesions. Soft tissues: No significant joint effusion. No suspicious soft tissue calcifications. IMPRESSION: No acute right knee fracture or dislocation. Mild tricompartmental osteoarthritis. No significant joint effusion. Dictated by: Ifeanyi Cruz M.D. on 01/27/2025 at 20:01 Approved by: Ifeanyi Cruz M.D. on 01/27/2025 at 20:02
--- NOTE | 2025-01-27 12:05 | DI.US.S_ITS ---
PROCEDURE: US PELVIC COMPLETE INDICATIONS: Post menopausal bleeding. TECHNIQUE: Real-time scanning was performed of the pelvic organs, with image documentation. Additional endovaginal scanning was necessary due to incomplete visualization of the adnexal and endometrial structures by transabdominal scanning. COMPARISON: [facility], US, US PELVIC COMPLETE, 04/06/2022, 14:42. FINDINGS: Uterus: Uterus is anteverted and normal in size at 6.0 x 2.6 x 3.2 cm. The myometrium is homogeneous. The endometrium measures 5 mm combined thickness. No discrete mass Ovaries: The right ovary measures 3.0 x 1.7 x 3.1 cm, with a calculated ovarian volume of 10.3 mL. This measurement includes a complex cyst measuring up to 1.9 cm with thick internal septation.. The left ovary measures 3.1 x 1.3 x 1.6 cm cm, with a calculated ovarian volume of 6.3 cc. The ovaries have a normal sonographic appearance. No adnexal masses are seen. Other: No pathologic free abdominal or pelvic fluid. IMPRESSION: Complex cyst right ovary with thick internal septation which may represent a serous tumor. Short-term interval follow-up or further evaluation with MRI recommended. We strive to produce accurate, complete, and clear reports of imaging services. To assist us in improving patient care, this report was composed using standard report templates and voice recognition software. Therefore, it may contain abnormal punctuation, insertions and/or omissions. Occasional wrong-word or sound-alike substitutions may occur. Though we review the report and make efforts to correct it, we do recommend that the report be read carefully in proper context to recognize any text inaccuracies. Dictated by: Pritesh Valencia M.D. on 01/27/2025 at 17:24 Approved by: Pritesh Valencia M.D. on 01/27/2025 at 17:30
== END ==
PROVIDERS: PCP Family Medicine; Referring Provider Family Medicine; Visit Provider Family Medicine
DX: R92.30 Dense breasts, unspecified (principal); R92.323 Mammographic fibroglandular density, bilateral breasts; M17.11 Unilateral primary osteoarthritis, right knee; M25.561 Pain in right knee; N83.291 Other ovarian cyst, right side; N95.0 Postmenopausal bleeding; Z80.3 Family history of malignant neoplasm of breast
CPT/HCPCS: 73562; 76830; 76856; 77049; A9579